=== PATIENT | male | born 1970 | race Caucasian/White ===

== ENCOUNTER 2017-01-23 14:33 | Emergency (ER) | payer OTHER ==
[2017-01-23 14:33] VITALS: BMI 90.0
[2017-01-23 15:13] VITALS: BP 133/88; PULSE 86; RESP 18; TEMP 97.6; O2SAT 98
[2017-01-24] MEDS ORDERED: Methylene Blue 10 mg/mL(10ml) IV ONE (08:53)
== END 2017-01-23 15:08 | disposition left against medical advice (07) ==
LOC: C.ER 14:33
DX: R19.7 Diarrhea, unspecified (principal); Z02.9 Encounter for administrative examinations, unspecified

== ENCOUNTER 2017-01-24 07:47 | Emergency (ER) | payer OTHER ==
[2017-01-24 07:55] VITALS: BMI 43.0
[2017-01-24 08:08] VITALS: RESP 19
[2017-01-24] MEDS ORDERED: Iohexol 240 (50 ml) PO STA (08:44)
[2017-01-24] MEDS ORDERED: Iohexol 240 (50 ml) ONE (09:29)
[2017-01-24 09:31] LABS: BASO % 0.1 % (0.0-2.0); EOS # 0.1 K/uL (0.0-0.7); EOS % 0.7 % (0.0-4.0); HEMATOCRIT 38.4 % (35.0-51.0); LYMPH # 1.6 K/uL (1.0-4.3); LYMPH % 15.1 % (20.0-40.0); MEAN CELL VOLUME 89.8 fL (80.0-94.0); MEAN CORPUSCULAR HEMOGLOBIN 30.3 pg (27.0-31.0); MEAN CORPUSCULAR HGB CONC 33.7 g/dL (33.0-37.0); MEAN PLATELET VOLUME 8.5 fL (7.2-11.7); MONO # 1.1 K/uL (0.0-0.8); MONO % 10.1 % (0.0-10.0); NRBC % 0.4 % (0.0-2.0); RED CELL DISTRIBUTION WIDTH 15.1 % (11.5-14.5); WHITE BLOOD COUNT 10.4 K/uL (4.8-10.8)
[2017-01-24 09:35] LABS: URINE BILIRUBIN NEGATIVE (NEGATIVE); URINE BLOOD 1+ (NEGATIVE); URINE COLOR Yellow (YELLOW); URINE GLUCOSE (UA) NORMAL (Normal); URINE KETONE NEGATIVE (NEGATIVE); URINE LEUKOCYTE ESTERASE NEG Leu/uL (Negative); URINE PROTEIN NEGATIVE (NEGATIVE); URINE UROBILINOGEN NORMAL mg/dL (0.2-1.0)
[2017-01-24 09:36] LABS: WBC URINE < 1 /hpf (0-5)
[2017-01-24 09:43] LABS: ALB/GLOB RATIO 0.9 (1.0-2.1); ALKALINE PHOSPHATASE 56 U/L (38-126); ALT/SGPT 36 U/L (21-72); AST/SGOT 22 U/L (17-59); BILIRUBIN,TOTAL 0.4 mg/dL (0.2-1.3); BLOOD UREA NITROGEN 16 mg/dL (9-20); CALCIUM 8.9 mg/dl (8.6-10.4); CARBON DIOXIDE 24 mmol/L (22-30); CHLORIDE 102 mmol/L (98-107); GFR AFRICAN-AMERICAN > 60; GLUCOSE,RANDOM 100 mg/dL (75-110); POTASSIUM 3.7 mmol/L (3.6-5.2); SODIUM 133 mmol/L (132-148)
[2017-01-24 09:49] LABS: RBC URINE 1 /hpf (0-3)
--- NOTE | 2017-01-24 10:05 | C.PDOC ---
History Of Present Illness 46 y/o male with PMHx of DM, CHF, DVT, COPD, Asthma and Kidney stones presents to ED with complaints of abdominal pain for 1 week with associated dark stool and diarrhea. Pt notes that the symptoms have improved. Patient was evaluated at clinic yesterday and advised to come to ED for further evaluation. Patient admits to taking pepto bismol, notes dark stool prior to it. Patient denies back pain, nausea, vomiting, dysuria, hematuria, blood in stool or any other complaints at this time. Time Seen by Provider: 01/24/17 07:59 Chief Complaint (Nursing): GI Problem History Per: Patient History/Exam Limitations: no limitations Onset/Duration Of Symptoms: Days Current Symptoms Are (Timing): Still Present Past Medical History Reviewed: Historical Data, Nursing Documentation, Vital Signs Vital Signs: Last Vital Signs Temp 98.7 F 01/24/17 12:45 Pulse 82 01/24/17 12:45 Resp 19 01/24/17 12:45 BP 154/82 H 01/24/17 12:45 Pulse Ox 97 01/24/17 13:28 - Medical History PMH: Asthma, Benign Prostatic Hyperplasia, CHF, COPD, Depression, Diverticulitis , HTN, Hypercholesterolemia, Hyperlipidemia, Hypothyroidism, Kidney Stones ( KIDNEY STENT 2007), Paranoia Surgical History: No Surg Hx - [facility] Procedures CLOSED ENDOSCOPIC BIOPSY OF LARGE INTESTINE (11/18/12) DX ULTRASOUND-HEAD/NECK (08/20/12) ENDOSC POLYPECTOMY OF LG INTEST (11/18/12) INJECT/INFUSE NEC (09/15/13) NEBULIZER THERAPY (10/23/13) PERCUTAN NEEDLE BX OF THYROID GLAND (08/20/12) PHYSICAL THERAPY NEC (11/24/14) Family History: States: Diabetes, Hypertension - Social History Hx Tobacco Use: No Hx Alcohol Use: No Hx Substance Use: No - Immunization History Hx Tetanus Toxoid Vaccination: No Hx Influenza Vaccination: No Hx Pneumococcal Vaccination: No Review Of Systems Constitutional: Negative for: Fever, Chills Gastrointestinal: Positive for: Abdominal Pain, Diarrhea, Melena. Negative for : Nausea, Vomiting, Hematochezia Skin: Negative for: Rash Physical Exam - Physical Exam Appears: Non-toxic, No Acute Distress Skin: Normal Color, Warm, Dry, No Rash Head: Atraumatic, Normacephalic Eye(s): bilateral: Normal Inspection, EOMI Nose: Normal Oral Mucosa: Moist Neck: Normal ROM, Supple Chest: Symmetrical Cardiovascular: Rhythm Regular Respiratory: Normal Breath Sounds, No Accessory Muscle Use, No Rales, No Rhonchi , No Wheezing Gastrointestinal/Abdominal: Soft, Tenderness (LLQ, obese), No Guarding, No Rebound Back: No CVA Tenderness, No Vertebral Tenderness Neurological/Psych: Oriented x3 ED Course And Treatment - Laboratory Results Result Diagrams: 01/24/17 09:28 01/24/17 09:28 O2 Sat by Pulse Oximetry: 97 (RA) Pulse Ox Interpretation: Normal - CT Scan/US CT A/P Other Rad Studies (CT/US): Interpreted By Me, Read By Radiologist, Radiology Report Reviewed CT/US Interpretation: PROCEDURE: CT Abdomen and Pelvis with contrast. HISTORY : pain. COMPARISON: None. TECHNIQUE: Contrast dose: 100 mL Visipaque 320. Radiation dose: Total exam DLP = 1368.39 mGy-cm. This CT exam was performed using one or more of the following dose reduction techniques: Automated exposure control, adjustment of the mA and/or kV according to patient size, and/ or use of iterative reconstruction technique. FINDINGS: LOWER THORAX: Unremarkable. LIVER: UnremarkableNormal size. Multiple masses of varying size suspicious for metastatic disease. Cannot rule out primary hepatic cellular neoplasm as well. The largest such mass is seen in the inferior right hepatic lobe and measures roughly 6.2 cm in greatest dimension. There is no biliary dilatation. . GALLBLADDER AND BILE DUCTS: Unremarkable. PANCREAS: Unremarkable. No gross lesion or ductal dilatation. SPLEEN: Unremarkable. ADRENALS: Unremarkable. No mass. KIDNEYS AND URETERS: Unremarkable. No hydronephrosis. No solid mass. VASCULATURE: Unremarkable. No aortic aneurysm. BOWEL: There is man colonic diverticulosis, most pronounced in the sigmoid colon. There is no evidence of diverticulitis. There is no bowel obstruction. APPENDIX: Normal appendix. PERITONEUM: Unremarkable. No free fluid. No free air. LYMPH NODES: Unremarkable. No enlarged lymph nodes. BLADDER: Unremarkable. REPRODUCTIVE: Normal prostate. BONES: No acute fracture. OTHER FINDINGS: None. IMPRESSION: Multiple hepatic masses raising suspicion of metastatic disease though multifocal hepatocellular neoplasm must also be considered. Progress Note: Ct scan abdomen, Toradol, Pepcid. Stool evaluated, soft brown stool. No blood or melena. On re-evlauation, patient is resting comfortably, abdomen remains soft, and patient is tolerating PO. Discussed with pt CT findings. Pt notes he is aware of the lesions in the liver and has been evaluated by GI with additional testing done. I stressed the importance of follow up and that cancer can not be ruled out. pt was given results of the labs and CT and instructed strict follow up with the heme/onc/GI. Pt verbalizes understanding. Instructed to follow up wit PMD in 1-2 days. CAse discussed and results evlauated by Dr Mei, agreed upon plan and treatment. Disposition - Disposition Referrals: Merritt Johnson MD [Staff Provider] - [facility] [Outside] Disposition: HOME/ ROUTINE Disposition Time: 12:31 Condition: STABLE Additional Instructions: Follow up with the clinic in 1-3 days without fail for further evaluation. Take medications as prescribed. Return to the emergency department at any time if symptoms persist or worsen. Instructions: Acute Abdominal Pain (ED) Forms: [employer] (Greenlandic) - Clinical Impression Clinical Impression: Abdominal pain, Liver masses - PA / NOVELTIES SALES REPRESENTATIVE / Resident Statement MD/DO has reviewed & agrees with the documentation as recorded. - Scribe Statement The provider has reviewed the documentation as recorded by the Masoudiblevy Tirado All medical record entries made by the Nila were at my direction and personally dictated by me. I have reviewed the chart and agree that the record accurately reflects my personal performance of the history, physical exam, medical decision making, and the department course for this patient. I have also personally directed, reviewed, and agree with the discharge instructions and disposition.
[2017-01-24] MEDS ORDERED: Iodixanol 320 MG/ML 100 ML BOTTLE IV ONE (10:57)
--- NOTE | 2017-01-24 12:06 | CT ---
PROCEDURE: CT Abdomen and Pelvis with contrast HISTORY: pain COMPARISON: None. TECHNIQUE: Contrast dose: 100 mL Visipaque 320 Radiation dose: Total exam DLP = 1368.39 mGy-cm. This CT exam was performed using one or more of the following dose reduction techniques: Automated exposure control, adjustment of the mA and/or kV according to patient size, and/or use of iterative reconstruction technique. FINDINGS: LOWER THORAX: Unremarkable. LIVER: UnremarkableNormal size. Multiple masses of varying size suspicious for metastatic disease. Cannot rule out primary hepatic cellular neoplasm as well. The largest such mass is seen in the inferior right hepatic lobe and measures roughly 6.2 cm in greatest dimension. There is no biliary dilatation. . GALLBLADDER AND BILE DUCTS: Unremarkable. PANCREAS: Unremarkable. No gross lesion or ductal dilatation. SPLEEN: Unremarkable. ADRENALS: Unremarkable. No mass. KIDNEYS AND URETERS: Unremarkable. No hydronephrosis. No solid mass. VASCULATURE: Unremarkable. No aortic aneurysm. BOWEL: There is man colonic diverticulosis, most pronounced in the sigmoid colon. There is no evidence of diverticulitis. There is no bowel obstruction. APPENDIX: Normal appendix. PERITONEUM: Unremarkable. No free fluid. No free air. LYMPH NODES: Unremarkable. No enlarged lymph nodes. BLADDER: Unremarkable. REPRODUCTIVE: Normal prostate BONES: No acute fracture. OTHER FINDINGS: None. IMPRESSION: Multiple hepatic masses raising suspicion of metastatic disease though multifocal hepatocellular neoplasm must also be considered.
[2017-01-24 12:54] VITALS: BP 154/82; PULSE 82; TEMP 98.7
[2017-01-24 13:28] VITALS: O2SAT 97
== END 2017-01-24 12:54 | disposition home or self-care (01) ==
LOC: C.ER 07:47
DX: R10.32 Left lower quadrant pain (principal); R16.0 Hepatomegaly, not elsewhere classified
CPT/HCPCS: 74177; 80053; 81001; 83690; 85025; 96374; 96375; 99284; G0328; J1885; Q9966; Q9967

== ENCOUNTER 2017-02-19 07:42 | Emergency (ER) | payer OTHER ==
[2017-02-19 07:47] VITALS: BMI 43.4
[2017-02-19 07:50] VITALS: PULSE 86; RESP 18
[2017-02-19 08:29] LABS: BASO # 0.1 K/uL (0.0-0.2); BASO % 0.6 % (0.0-2.0); EOS # 0.1 K/uL (0.0-0.7); EOS % 0.4 % (0.0-4.0); HEMATOCRIT 40.7 % (35.0-51.0); LYMPH % 14.6 % (20.0-40.0); MEAN CORPUSCULAR HEMOGLOBIN 29.6 pg (27.0-31.0); MEAN CORPUSCULAR HGB CONC 33.6 g/dL (33.0-37.0); MEAN PLATELET VOLUME 8.3 fL (7.2-11.7); MONO # 1.2 K/uL (0.0-0.8); MONO % 8.4 % (0.0-10.0); NRBC % 0.1 % (0.0-2.0); RED CELL DISTRIBUTION WIDTH 15.1 % (11.5-14.5); WHITE BLOOD COUNT 13.9 K/uL (4.8-10.8)
[2017-02-19 08:45] LABS: ALB/GLOB RATIO 1.1 (1.0-2.1); ALKALINE PHOSPHATASE 59 U/L (38-126); ALT/SGPT 32 U/L (21-72); AST/SGOT 22 U/L (17-59); BILIRUBIN,TOTAL 0.5 mg/dL (0.2-1.3); BLOOD UREA NITROGEN 25 mg/dL (9-20); CALCIUM 9.4 mg/dl (8.6-10.4); CARBON DIOXIDE 28 mmol/L (22-30); CHLORIDE 94 mmol/L (98-107); GFR AFRICAN-AMERICAN > 60; GLUCOSE,RANDOM 171 mg/dL (75-110); POTASSIUM 3.8 mmol/L (3.6-5.2); SODIUM 131 mmol/L (132-148); TOTAL PROTEIN 8.1 g/dL (6.3-8.3)
[2017-02-19 08:50] LABS: URINE BILIRUBIN NEGATIVE (NEGATIVE); URINE COLOR Straw (YELLOW); URINE GLUCOSE (UA) NORMAL (Normal); URINE KETONE NEGATIVE (NEGATIVE); URINE LEUKOCYTE ESTERASE NEG Leu/uL (Negative); URINE PROTEIN NEGATIVE (NEGATIVE); URINE UROBILINOGEN NORMAL mg/dL (0.2-1.0)
[2017-02-19 08:54] LABS: RBC URINE 1 /hpf (0-3)
[2017-02-19 08:55] LABS: URINE BLOOD TRACE (NEGATIVE)
--- NOTE | 2017-02-19 09:27 | C.PDOC ---
Time Seen by Provider: 02/19/17 07:56 Chief Complaint (Nursing): Abdominal Pain History Per: Patient Onset/Duration Of Symptoms: Days (chronic), Intermittent Episodes Current Symptoms Are (Timing): Still Present Severity: Moderate Location Of Pain/Discomfort: RLQ, LLQ, Suprapubic Quality Of Discomfort: Cramping Associated Symptoms: Diarrhea Exacerbating Factors: Food Alleviating Factors: None Recent travel outside of the [place]: No Additional History Per: Prior Records Past Medical History Reviewed: Historical Data, Nursing Documentation, Vital Signs Vital Signs: Last Vital Signs Temp Pulse 86 02/19/17 07:48 Resp 18 02/19/17 07:48 BP 135/89 02/19/17 07:48 Pulse Ox 95 02/19/17 07:48 - Medical History PMH: Asthma, Benign Prostatic Hyperplasia, CHF, COPD, Depression, Diverticulitis , HTN, Hypercholesterolemia, Hyperlipidemia, Hypothyroidism, Kidney Stones ( KIDNEY STENT 2007), Paranoia Surgical History: No Surg Hx - [facility] Procedures CLOSED ENDOSCOPIC BIOPSY OF LARGE INTESTINE (11/18/12) DX ULTRASOUND-HEAD/NECK (08/20/12) ENDOSC POLYPECTOMY OF LG INTEST (11/18/12) INJECT/INFUSE NEC (09/15/13) NEBULIZER THERAPY (10/23/13) PERCUTAN NEEDLE BX OF THYROID GLAND (08/20/12) PHYSICAL THERAPY NEC (11/24/14) Family History: States: Diabetes, Hypertension - Social History Hx Tobacco Use: No Hx Alcohol Use: No Hx Substance Use: No - Immunization History Hx Tetanus Toxoid Vaccination: No Hx Influenza Vaccination: No Hx Pneumococcal Vaccination: No Review Of Systems Except As Marked, All Systems Reviewed And Found Negative. Constitutional: Negative for: Fever Cardiovascular: Negative for: Chest Pain Respiratory: Negative for: Hemoptysis Gastrointestinal: Negative for: Vomiting, Melena, Hematochezia, Hematemesis Genitourinary: Negative for: Dysuria Musculoskeletal: Negative for: Neck Pain Skin: Negative for: Rash Neurological: Negative for: Weakness, Numbness Physical Exam - Physical Exam Appears: Non-toxic, No Acute Distress Skin: Warm, Dry Head: Atraumatic, Normacephalic Eye(s): bilateral: PERRL, EOMI Oral Mucosa: Moist Neck: Normal ROM, Supple Cardiovascular: Rhythm Regular Respiratory: Normal Breath Sounds, No Accessory Muscle Use Gastrointestinal/Abdominal: Soft, No Tenderness Back: No CVA Tenderness Extremity: Normal ROM, No Pedal Edema Neurological/Psych: Oriented x3, Normal Motor, Normal Sensation ED Course And Treatment - Laboratory Results Result Diagrams: 02/19/17 08:24 02/19/17 08:24 O2 Sat by Pulse Oximetry: 95 Pulse Ox Interpretation: Normal Disposition Counseled Patient/Family Regarding: Studies Performed, Diagnosis, Need For Followup, Rx Given - Disposition Referrals: [facility] [Outside] Merritt Johnson MD [Staff Provider] - Disposition: HOME/ ROUTINE Disposition Time: 09:27 Condition: STABLE Additional Instructions: Follow up with a Construction Sales Representative within 1-2 weeks for further evaluation and treatment. Return to the ER if you develop fever, vomiting, bloody stools, worsening of symptoms or if you have any other concerns. Prescriptions: Dicyclomine [Bentyl] 20 mg PO QID PRN #30 tab PRN Reason: Irritable Bowel Symptoms Instructions: Chronic Diarrhea (ED) - Clinical Impression Clinical Impression: Chronic diarrhea
[2017-02-19 09:44] VITALS: BP 121/84; O2SAT 98
== END 2017-02-19 09:44 | disposition home or self-care (01) ==
LOC: C.ER 07:42
DX: K52.9 Noninfective gastroenteritis and colitis, unspecified (principal); I10 Essential (primary) hypertension; E78.00 Pure hypercholesterolemia, unspecified; E03.9 Hypothyroidism, unspecified; I50.9 Heart failure, unspecified; J44.9 Chronic obstructive pulmonary disease, unspecified; E78.5 Hyperlipidemia, unspecified

== ENCOUNTER 2017-04-02 07:38 | Inpatient (IN) | payer OTHER ==
[2017-04-02 07:38] VITALS: BMI 44.4
[2017-04-02 08:39] LABS: BASO % 0.4 % (0.0-2.0); EOS % 0.3 % (0.0-4.0); HEMOGLOBIN 13.3 g/dL (12.0-18.0); LYMPH # 0.8 K/uL (1.0-4.3); LYMPH % 9.4 % (20.0-40.0); MEAN CORPUSCULAR HEMOGLOBIN 30.5 pg (27.0-31.0); MEAN CORPUSCULAR HGB CONC 34.3 g/dL (33.0-37.0); MEAN PLATELET VOLUME 8.6 fL (7.2-11.7); MONO # 0.9 K/uL (0.0-0.8); MONO % 9.4 % (0.0-10.0); NEUT # 7.3 K/uL (1.8-7.0); NEUT % 80.5 % (50.0-75.0); NRBC % 0.1 % (0.0-2.0); PLATELET COUNT 195 K/uL (130-400); RBC 4.36 Mil/uL (4.40-5.90); RED CELL DISTRIBUTION WIDTH 15.5 % (11.5-14.5); WHITE BLOOD COUNT 9.1 K/uL (4.8-10.8)
--- NOTE | 2017-04-02 08:39 | C.PDOC ---
History Of Present Illness 47-year-old male, PMHx includes Asthma, Benign Prostatic Hyperplasia, liver lesions, CHF, COPD, Depression, Diverticulitis, Hypertension, Hypercholesterolemia, Hyperlipidemia, Hypothyroidism, and Kidney Stones, presents to the emergency department with complaints of lower abdominal pain that is associated with multiple episodes of non-bloody/watery diarrhea since last night. Patient also reports that his asthma has been bothering him for the past week, associated with shortness of breath and cough. He denies nausea/ vomiting, fevers, chills, or chest pain. Time Seen by Provider: 04/02/17 07:57 Chief Complaint (Nursing): GI Problem History Per: Patient History/Exam Limitations: no limitations Onset/Duration Of Symptoms: Days Current Symptoms Are (Timing): Still Present Severity: Moderate Past Medical History Reviewed: Historical Data, Nursing Documentation, Vital Signs Vital Signs: Last Vital Signs Temp 83 F L 04/02/17 10:42 Pulse 83 04/02/17 10:42 Resp 20 04/02/17 10:42 BP 107/70 04/02/17 10:42 Pulse Ox 95 04/02/17 10:50 - Medical History PMH: Asthma, Benign Prostatic Hyperplasia, CHF, COPD, Depression, Diverticulitis , HTN, Hypercholesterolemia, Hyperlipidemia, Hypothyroidism, Kidney Stones ( KIDNEY STENT 2007), Paranoia - [facility] Procedures CLOSED ENDOSCOPIC BIOPSY OF LARGE INTESTINE (11/18/12) DX ULTRASOUND-HEAD/NECK (08/20/12) ENDOSC POLYPECTOMY OF LG INTEST (11/18/12) INJECT/INFUSE NEC (09/15/13) NEBULIZER THERAPY (10/23/13) PERCUTAN NEEDLE BX OF THYROID GLAND (08/20/12) PHYSICAL THERAPY NEC (11/24/14) Family History: States: Diabetes, Hypertension - Social History Hx Tobacco Use: No Hx Alcohol Use: No Hx Substance Use: No - Immunization History Hx Tetanus Toxoid Vaccination: No Hx Influenza Vaccination: No Hx Pneumococcal Vaccination: No Review Of Systems Constitutional: Negative for: Fever Cardiovascular: Negative for: Chest Pain, Palpitations Respiratory: Positive for: Cough, Shortness of Breath Gastrointestinal: Positive for: Abdominal Pain, Diarrhea. Negative for: Nausea , Vomiting, Melena, Hematochezia Musculoskeletal: Negative for: Back Pain Neurological: Negative for: Weakness, Numbness, Headache, Dizziness Physical Exam - Physical Exam Appears: Non-toxic, No Acute Distress, Other (Obese) Skin: Warm, Dry, No Rash, No Jaundice Head: Atraumatic, Normacephalic Eye(s): bilateral: Normal Inspection, PERRL Nose: Normal Oral Mucosa: Moist Lips: Normal Appearing Neck: Normal ROM Cardiovascular: Rhythm Regular, No Murmur Respiratory: Normal Breath Sounds, No Accessory Muscle Use Gastrointestinal/Abdominal: Soft, No Tenderness, No Distention, No Guarding, No Rebound Extremity: Pedal Edema (Mild.), No Calf Tenderness, No Deformity Neurological/Psych: Oriented x3, Normal Speech ED Course And Treatment - Laboratory Results Result Diagrams: 04/02/17 08:32 04/02/17 08:32 O2 Sat by Pulse Oximetry: 95 (RA) Medical Decision Making Medical Decision Making: Plan: * BNP, CMP * CBC, PTT, PT * Chest X-Ray * UA * Reassess and Disposition Disposition Discussed With DrJuan: Wei Cunningham Doctor Will See Patient In The: Hospital - Disposition Disposition: HOSPITALIZED Disposition Time: 10:51 Condition: STABLE Forms: [employer] (Slovenian) - Clinical Impression Clinical Impression: Infiltrate noted on imaging study, Mild dehydration - Scribe Statement The provider has reviewed the documentation as recorded by the Scribe (Bola Rodrigues) All medical record entries made by the Scribe were at my direction and personally dictated by me. I have reviewed the chart and agree that the record accurately reflects my personal performance of the history, physical exam, medical decision making, and the department course for this patient. I have also personally directed, reviewed, and agree with the discharge instructions and disposition.
[2017-04-02 08:51] LABS: INR 1.2
[2017-04-02 08:55] LABS: ALB/GLOB RATIO 1.1 (1.0-2.1); ALT/SGPT 25 U/L (21-72); AST/SGOT 23 U/L (17-59); BLOOD UREA NITROGEN 23 mg/dL (9-20); CALCIUM 9.1 mg/dl (8.6-10.4); GFR AFRICAN-AMERICAN > 60; GFR NON-AFRICAN AMERICAN > 60
[2017-04-02 09:02] LABS: B-TYPE NATRIURETIC PEPTIDE 212 pg/mL (0-450)
[2017-04-02 09:06] LABS: URINE BILIRUBIN NEGATIVE (NEGATIVE); URINE BLOOD 1+ (NEGATIVE); URINE CLARITY Clear (Clear); URINE COLOR Straw (YELLOW); URINE GLUCOSE (UA) NORMAL (Normal); URINE LEUKOCYTE ESTERASE NEG Leu/uL (Negative); URINE NITRATE NEGATIVE (NEGATIVE); URINE PROTEIN NEGATIVE (NEGATIVE); URINE UROBILINOGEN NORMAL mg/dL (0.2-1.0)
[2017-04-02 09:13] LABS: BANDS 3 % (0-2); LYMPHOCYTE 7 % (20-40); MONOCYTE 11 % (0-10); NEUTROPHIL 77 % (50-75); REACTIVE LYMPHOCYTES 2 % (0-0); TOTAL CELLS COUNTED 100
[2017-04-02 09:14] LABS: PLATELET ESTIMATE NORMAL (NORMAL)
--- NOTE | 2017-04-02 09:16 | RAD ---
Chest x-ray two views History: Shortness of breath. Comparison: 04/25/2015 Findings: Mild venous congestion. Mild patchy increased markings at the left lung base. Tortuous aorta. Mild cardiomegaly. Degenerative changes in the spine and shoulders. Question deformities of several right lateral ribs. Impression: Mild venous congestion. Mild patchy increased markings at the left lung base. Tortuous aorta. Mild cardiomegaly
[2017-04-02] MEDS ORDERED: cefTRIAXone IV 1 gm in Dextros 50 ML IVPB ONE ×2 (09:54→11:03)
[2017-04-02] MEDS ORDERED: Azithromycin 500 MG in Sodium Chloride 0.9% 250 ML IVPB STA (09:55)
--- NOTE | 2017-04-02 12:48 | CP.PCM.HP ---
<Uyen RobinJuan - Last Filed: 04/02/17 15:25> History of Present Illness - History of Present Illness History of Present Illness: HPI: Patient is a 47 year old male with past medical history of asthma, COPD, CHF, HTN, HLD, DM, hypothyroidism, diverticulosis, who presents to the ED with complaints of watery diarrhea and lower abdominal pain that started the previous night. Patient reports having approximately 6 episodes of diarrhea over night, and continues to have diarrhea in the ED. He denies blood in stool. Patient admits to lower abdominal pain that is diffuse and described as feeling inflamed and bloated. Patient reports having similar episodes in the past, last episode was 2 months ago. Patient also complains of shortness of breath and cough associated with his history of asthma. Patient denies chest pain, nausea, vomiting, fevers, headache, recent sick contacts, recent travel. PMD: Dr. Woods PMHx: asthma, COPD, CHF, HTN, HLD, DM, hypothyroidism, diverticulosis. depression, schizophrenia/paranoia, kidney stones, liver lesions, glaucoma (b/l) , blind in left eye SurgHx: eye surgeries (3 years prior), kidney stent (2007) FamHx: Father- [place], DM SocHx: denies tobacco, alcohol, and drug use; lives in [place] alone; unemployed, disability Allergies: dilaudid and morphine (palpitations and "head feels full of air") Medications: Carvedilol 25mg BID, Losartan 100mg daily, pravastatin 40mg daily, furosemide 40mg daily, levothyroxine 25mg daily, spironolactone 25mg daily, symbicort 250 daily, ventolin prn, metformin 500mg daily, vitamin D3 daily, fish oil daily Present on Admission - Present on Admission Any Indicators Present on Admission: No Review of Systems - Constitutional Constitutional: Increased Appetite, Weakness. absent: Fever, Headache, Night Sweats - EENT Eyes: Other Visual Disturbances (blind in left eye, glaucoma in right with decreased vision) Ears: Dizziness Nose/Mouth/Throat: Hoarsness. absent: Sore Throat - Cardiovascular Cardiovascular: Dyspnea, Palpitations. absent: Chest Pain - Respiratory Respiratory: Cough, Dyspnea. absent: Excessive Mucous Production - Gastrointestinal Gastrointestinal: Abdominal Pain, Bloating, Diarrhea. absent: Constipation, Nausea, Vomiting - Genitourinary Genitourinary: absent: Dysuria, Hematuria, Pyuria - Neurological Neurological: Dizziness. absent: Headaches - Psychiatric Psychiatric: Depression - Endocrine Endocrine: Palpitations Past Patient History - Infectious Disease Hx of Infectious Diseases: None - Past Medical History & Family History Past Medical History?: Yes - Past Social History Smoking Status: Never Smoked - CARDIAC Hx Congestive Heart Failure: Yes Hx Hypercholesterolemia: Yes Hx Hypertension: Yes - PULMONARY Hx Asthma: Yes Hx Chronic Obstructive Pulmonary Disease (COPD): Yes - NEUROLOGICAL Hx Seizures: No - HEENT Hx HEENT Problems: Yes Hx Blind: Yes (left eye) Hx Glaucoma: Yes Other/Comment: lt. eye blind - RENAL Hx Kidney Stones: Yes (KIDNEY STENT 2007) - ENDOCRINE/METABOLIC Hx Hypothyroidism: Yes - HEMATOLOGICAL/ONCOLOGICAL Hx Human Immunodeficiency Virus (HIV): No - INTEGUMENTARY Hx Dermatological Problems: No - MUSCULOSKELETAL/RHEUMATOLOGICAL Hx Musculoskeletal Disorders: No Hx Falls: No - GASTROINTESTINAL Hx Diverticulitis: Yes - PSYCHIATRIC Hx Depression: Yes Hx Paranoia: Yes Hx Substance Use: No - SURGICAL HISTORY Hx Surgeries: Yes Other/Comment: KIDNEY STENT, LEFT EYE SURGERY X3 - ANESTHESIA Hx Anesthesia: Yes Hx Anesthesia Reactions: No Hx Malignant Hyperthermia: No (UNKNOWN) Meds Allergies/Adverse Reactions: Allergies Allergy/AdvReac Type Severity Reaction Status Date / Time hydromorphone HCl Allergy SHORTNESS Verified 02/19/17 07:47 [From Dilaudid] OF BREATH morphine Allergy HEADACHE Verified 02/19/17 07:47 Physical Exam - Constitutional Appears: No Acute Distress - Head Exam Head Exam: ATRAUMATIC, NORMOCEPHALIC - Eye Exam Eye Exam: EOMI (Right eye). absent: Normal appearance - ENT Exam ENT Exam: Mucous Membranes Moist - Respiratory Exam Respiratory Exam: Clear to Auscultation Bilateral, NORMAL BREATHING PATTERN. absent: Rales, Rhonchi, Wheezes, Respiratory Distress - Cardiovascular Exam Cardiovascular Exam: REGULAR RHYTHM, +S1, +S2 - GI/Abdominal Exam GI & Abdominal Exam: Normal Bowel Sounds, Soft, Tenderness (mild with deep palpation- diffuse) - Extremities Exam Extremities exam: Positive for: pedal edema, pedal pulses present. Negative for : tenderness - Neurological Exam Neurological exam: Alert, Oriented x3 - Psychiatric Exam Psychiatric exam: Anxious - Skin Skin Exam: Dry, Intact, Warm Results - Vital Signs Recent Vital Signs: Last Vital Signs Temp 98.3 F 04/02/17 10:42 Pulse 83 04/02/17 10:42 Resp 20 04/02/17 10:42 BP 107/70 04/02/17 10:42 Pulse Ox 95 04/02/17 10:52 - Labs Result Diagrams: 04/02/17 08:32 04/02/17 08:32 Labs: Laboratory Results - last 24 hr 04/02/17 04/02/17 04/02/17 08:32 08:32 08:32 WBC 9.1 RBC 4.36 L Hgb 13.3 Hct 38.8 MCV 89.0 MCH 30.5 MCHC 34.3 RDW 15.5 H Plt Count 195 MPV 8.6 Neut % (Auto) 80.5 H Lymph % (Auto) 9.4 L [place] % (Auto) 9.4 Eos % (Auto) 0.3 Baso % (Auto) 0.4 Neut # (Auto) 7.3 H Lymph # (Auto) 0.8 L [place] # (Auto) 0.9 H Eos # (Auto) 0.0 Baso # (Auto) 0.0 Neutrophils % (Manual) 77 H Band Neutrophils % 3 H Lymphocytes % (Manual) 7 L Reactive Lymphs % 2 H Monocytes % (Manual) 11 H Platelet Estimate Normal RBC Morphology Normal PT 13.0 H INR 1.2 APTT 27 Sodium 133 Potassium 4.1 Chloride 99 Carbon Dioxide 20 L Anion Gap 18 BUN 23 H Creatinine 0.9 Est GFR ( Amer) > 60 Est GFR (Non-Af Amer) > 60 Random Glucose 142 H Calcium 9.1 Total Bilirubin 0.7 AST 23 ALT 25 Alkaline Phosphatase 48 NT-Pro-B Natriuret Pep 212 Total Protein 7.6 Albumin 4.0 Globulin 3.5 Albumin/Globulin Ratio 1.1 Urine Color Urine Clarity Urine pH Ur Specific [place] Urine Protein Urine Glucose (UA) Urine Ketones Urine Blood Urine Nitrate Urine Bilirubin Urine Urobilinogen Ur Leukocyte Esterase Urine WBC (Auto) Urine RBC (Auto) Influenza Typ A,B (EIA) 04/02/17 04/02/17 08:36 09:53 WBC RBC Hgb Hct MCV MCH MCHC RDW Plt Count MPV Neut % (Auto) Lymph % (Auto) [place] % (Auto) Eos % (Auto) Baso % (Auto) Neut # (Auto) Lymph # (Auto) [place] # (Auto) Eos # (Auto) Baso # (Auto) Neutrophils % (Manual) Band Neutrophils % Lymphocytes % (Manual) Reactive Lymphs % Monocytes % (Manual) Platelet Estimate RBC Morphology PT INR APTT Sodium Potassium Chloride Carbon Dioxide Anion Gap BUN Creatinine Est GFR ( Amer) Est GFR (Non-Af Amer) Random Glucose Calcium Total Bilirubin AST ALT Alkaline Phosphatase NT-Pro-B Natriuret Pep Total Protein Albumin Globulin Albumin/Globulin Ratio Urine Color Straw Urine Clarity Clear Urine pH 5.0 Ur Specific [place] 1.009 Urine Protein Negative Urine Glucose (UA) Normal Urine Ketones Negative Urine Blood 1+ H Urine Nitrate Negative Urine Bilirubin Negative Urine Urobilinogen Normal Ur Leukocyte Esterase Neg Urine WBC (Auto) < 1 Urine RBC (Auto) 2 Influenza Typ A,B (EIA) Negative for flu a/b Assessment & Plan (1) Abdominal pain Status: Acute (2) Diarrhea Status: Acute (3) Asthma Status: Acute (4) HTN (hypertension) Status: Acute (5) Hyperlipemia Status: Acute (6) Diabetes mellitus Status: Acute (7) Prophylactic measure Status: Acute - Assessment and Plan (Free Text) Plan: Abdominal pain/Diarrhea Assessment and Plan: * R/O diverticulitis vs. colitis vs. immune etiology * Abdomen/pelvis CT: f/u results * ESR: f/u results * CRP: f/u results * KORTNEY: f/u results * AFP: f/u results * GGT: f/u results * Hepatitis panel: f/u results * HIV: f/u results * C.diff: f/u results * Stool occult: f/u results * Stool leukocytes: f/u results * Stool ova and parasites: f/u results * Started Cipro 400mg IV Q12h, Flagyl 500mg IV Q8hr * IV fluids @40mls; f/u CXR in AM Asthma Assessment and Plan: * Continue home medications (Advair to replace Symbicort) * O2 via nasal cannula prn * CXR: mild venous congestion, mild patchy increased markings at left lung base , tortuous aorta, mild cardiomegaly. * Repeat CXR in AM: f/u results CHF Assessment and Plan: * Continue home medications * CXR: mild venous congestion, mild patchy increased markings at left lung base , tortuous aorta, mild cardiomegaly. * Repeat CXR in AM: f/u results * ECHO (08/2013) LV systolic function moderately impaired, EF 30-35%, abnormal LV diastolic dysfunction. HTN (hypertension) Assessment and Plan: * Continue home medications Hyperlipemia Assessment and Plan: * Continue home medications Diabetes Mellitus Assessment and Plan: * Home medications: Metformin 500mg PO daily * A1c: f/u results * ISS * Hypoglycemia protocol * Monitor blood glucose, accuchecks Prophylactic measure Assessment and Plan: * Heparin 5000 SC Q8h, SCDs * Protonix 40mg PO daily <Wei Cunningham H - Last Filed: 04/02/17 16:50> Results - Vital Signs Recent Vital Signs: Last Vital Signs Temp 98.3 F 04/02/17 16:32 Pulse 87 04/02/17 16:32 Resp 19 04/02/17 16:32 BP 122/80 04/02/17 16:32 Pulse Ox 98 04/02/17 16:32 - Labs Result Diagrams: 04/02/17 08:32 04/02/17 08:32 Labs: Laboratory Results - last 24 hr 04/02/17 04/02/17 04/02/17 08:32 08:32 08:32 WBC 9.1 RBC 4.36 L Hgb 13.3 Hct 38.8 MCV 89.0 MCH 30.5 MCHC 34.3 RDW 15.5 H Plt Count 195 MPV 8.6 Neut % (Auto) 80.5 H Lymph % (Auto) 9.4 L [place] % (Auto) 9.4 Eos % (Auto) 0.3 Baso % (Auto) 0.4 Neut # (Auto) 7.3 H Lymph # (Auto) 0.8 L [place] # (Auto) 0.9 H Eos # (Auto) 0.0 Baso # (Auto) 0.0 Neutrophils % (Manual) 77 H Band Neutrophils % 3 H Lymphocytes % (Manual) 7 L Reactive Lymphs % 2 H Monocytes % (Manual) 11 H Platelet Estimate Normal RBC Morphology Normal PT 13.0 H INR 1.2 APTT 27 Sodium 133 Potassium 4.1 Chloride 99 Carbon Dioxide 20 L Anion Gap 18 BUN 23 H Creatinine 0.9 Est GFR ( Amer) > 60 Est GFR (Non-Af Amer) > 60 POC Glucose (mg/dL) Random Glucose 142 H Hemoglobin A1c Calcium 9.1 Total Bilirubin 0.7 GGT AST 23 ALT 25 Alkaline Phosphatase 48 C-React Prot High Sens NT-Pro-B Natriuret Pep 212 Total Protein 7.6 Albumin 4.0 Globulin 3.5 Albumin/Globulin Ratio 1.1 Alpha Fetoprotein Urine Color Urine Clarity Urine pH Ur Specific [place] Urine Protein Urine Glucose (UA) Urine Ketones Urine Blood Urine Nitrate Urine Bilirubin Urine Urobilinogen Ur Leukocyte Esterase Urine WBC (Auto) Urine RBC (Auto) HIV 1&2 Antibody Screen Influenza Typ A,B (EIA) 04/02/17 04/02/17 04/02/17 08:36 09:53 14:47 WBC RBC Hgb Hct MCV MCH MCHC RDW Plt Count MPV Neut % (Auto) Lymph % (Auto) [place] % (Auto) Eos % (Auto) Baso % (Auto) Neut # (Auto) Lymph # (Auto) [place] # (Auto) Eos # (Auto) Baso # (Auto) Neutrophils % (Manual) Band Neutrophils % Lymphocytes % (Manual) Reactive Lymphs % Monocytes % (Manual) Platelet Estimate RBC Morphology PT INR APTT Sodium Potassium Chloride Carbon Dioxide Anion Gap BUN Creatinine Est GFR ( Amer) Est GFR (Non-Af Amer) POC Glucose (mg/dL) 103 Random Glucose Hemoglobin A1c Calcium Total Bilirubin GGT AST ALT Alkaline Phosphatase C-React Prot High Sens NT-Pro-B Natriuret Pep Total Protein Albumin Globulin Albumin/Globulin Ratio Alpha Fetoprotein Urine Color Straw Urine Clarity Clear Urine pH 5.0 Ur Specific [place] 1.009 Urine Protein Negative Urine Glucose (UA) Normal Urine Ketones Negative Urine Blood 1+ H Urine Nitrate Negative Urine Bilirubin Negative Urine Urobilinogen Normal Ur Leukocyte Esterase Neg Urine WBC (Auto) < 1 Urine RBC (Auto) 2 HIV 1&2 Antibody Screen Influenza Typ A,B (EIA) Negative for flu a/b 04/02/17 04/02/17 04/02/17 15:31 15:31 15:31 WBC RBC Hgb Hct MCV MCH MCHC RDW Plt Count MPV Neut % (Auto) Lymph % (Auto) [place] % (Auto) Eos % (Auto) Baso % (Auto) Neut # (Auto) Lymph # (Auto) [place] # (Auto) Eos # (Auto) Baso # (Auto) Neutrophils % (Manual) Band Neutrophils % Lymphocytes % (Manual) Reactive Lymphs % Monocytes % (Manual) Platelet Estimate RBC Morphology PT 13.5 H INR 1.2 APTT 27 Sodium Potassium Chloride Carbon Dioxide Anion Gap BUN Creatinine Est GFR ( Amer) Est GFR (Non-Af Amer) POC Glucose (mg/dL) Random Glucose Hemoglobin A1c Calcium Total Bilirubin GGT 48 AST ALT Alkaline Phosphatase C-React Prot High Sens > 15.00 H NT-Pro-B Natriuret Pep Total Protein Albumin Globulin Albumin/Globulin Ratio Alpha Fetoprotein Urine Color Urine Clarity Urine pH Ur Specific [place] Urine Protein Urine Glucose (UA) Urine Ketones Urine Blood Urine Nitrate Urine Bilirubin Urine Urobilinogen Ur Leukocyte Esterase Urine WBC (Auto) Urine RBC (Auto) HIV 1&2 Antibody Screen Influenza Typ A,B (EIA) 04/02/17 04/02/17 15:31 16:23 WBC RBC Hgb Hct MCV MCH MCHC RDW Plt Count MPV Neut % (Auto) Lymph % (Auto) [place] % (Auto) Eos % (Auto) Baso % (Auto) Neut # (Auto) Lymph # (Auto) [place] # (Auto) Eos # (Auto) Baso # (Auto) Neutrophils % (Manual) Band Neutrophils % Lymphocytes % (Manual) Reactive Lymphs % Monocytes % (Manual) Platelet Estimate RBC Morphology PT INR APTT Sodium Potassium Chloride Carbon Dioxide Anion Gap BUN Creatinine Est GFR ( Amer) Est GFR (Non-Af Amer) POC Glucose (mg/dL) Random Glucose Hemoglobin A1c 6.8 H Calcium Total Bilirubin GGT AST ALT Alkaline Phosphatase C-React Prot High Sens NT-Pro-B Natriuret Pep Total Protein Albumin Globulin Albumin/Globulin Ratio Alpha Fetoprotein 1.6 Urine Color Urine Clarity Urine pH Ur Specific [place] Urine Protein Urine Glucose (UA) Urine Ketones Urine Blood Urine Nitrate Urine Bilirubin Urine Urobilinogen Ur Leukocyte Esterase Urine WBC (Auto) Urine RBC (Auto) HIV 1&2 Antibody Screen Negative Influenza Typ A,B (EIA) Attending/Attestation - Attestation I have personally seen and examined this patient.: Yes I have fully participated in the care of the patient.: Yes I have reviewed all pertinent clinical information: Yes Notes (Text): 04/02/17 16:50 Medical attending: Patient was seen and examined by me as well, agrees the above note by the anesthesiology medical doctor. Mr Sanchez is a man with many complaints, very anxious with a history of bipolar and schizophrenia, and paranoia.. He has a history of asthma, COPD, history of CHF hypertension hypothyroidism who came in with chief complaint of watery stools as well as abdominal pain in his lower abdomen. From what and distended he's had episodes like this before in the past. We ordered a CT scan of the abdomen and pelvis with IV and by mouth contrast. We are later notified that the patient was giving the staff a hard time because he didn't want this imaging I came back down and explained to him that it would be important to give us an idea of what was going on inside he asked me a lot of questions she could have potential cancer or liver disease. But then he will allow a CT scan of the abdomen and pelvis I explained to him that if he continues to refuse imaging of his abdomen and pelvis that we would not be affected by this however it would greatly limit our ability to know what was going on. And we were therefore not be able to answer his many numerous questions that he was having Because of his ongoing diarrhea reported check for stool studies as well including ova and parasites, white blood cells, and for blood and for C. difficile. Furthermore because of this ongoing diarrhea, were to place him on a very slow intravenous fluids. I realize that there is a history of CHF. I did look at the chest x-ray dated looks like he has some minimal congestion. So we are going to give him slow intravenous fluids however when a check x-ray tomorrow just compared to today to see if we can continue the fluids or if we need to stop it given diuresis Thank you very much, Wei Cunningham
[2017-04-02] MEDS ORDERED: Iohexol 240 (50 ml) ONE (14:24)
[2017-04-02] MEDS ORDERED: Iohexol 240 (50 ml) PO ONE (14:29)
[2017-04-02] MEDS ORDERED: Sodium Chloride 0.9% 1,000 ML IV SCH (14:45)
[2017-04-02] MEDS ORDERED: Sodium Chloride 0.9% 1,000 ML ONE (15:11)
[2017-04-02] MEDS ORDERED: Ciprofloxacin 400mg/200ml D5W 400 MG/200 ML BAG IVPB ONE (15:11)
[2017-04-02] MEDS: Ciprofloxacin 400mg/200ml D5W 400 MG/200 ML BAG IVPB SCH (15:15)
[2017-04-02 15:52] LABS: INR 1.2; PROTHROMBIN TIME 13.5 SECONDS (9.7-12.2)
[2017-04-02] MEDS ORDERED: Iodixanol 320 MG/ML 100 ML BOTTLE IV ONE (15:58)
[2017-04-02 16:34] LABS: HIV 1&2 ANTIBODY NEGATIVE (NEGATIVE)
[2017-04-02 16:35] LABS: ALPHA FETO PROTEIN 1.6 ng/mL (0.0-7.5)
--- NOTE | 2017-04-02 17:18 | CT ---
PROCEDURE: CT Abdomen and Pelvis with oral and IV contrast. HISTORY: abdominal pain, diarrhea COMPARISON: CT abdomen and pelvis with oral and IV contrast performed 01/24/17 TECHNIQUE: Contiguous axial images of the abdomen and pelvis. Oral and IV contrast was administered. Coronal and Sagittal reformats generated and reviewed. Contrast dose: 100 mL Visipaque Radiation dose: Total exam DLP = 1072.10 MGy-cm. This CT exam was performed using one or more of the following dose reduction techniques: Automated exposure control, adjustment of the mA and/or kV according to patient size, and/or use of iterative reconstruction technique. FINDINGS: LOWER THORAX: No visible consolidation, pleural effusion, or pneumothorax. 5 mm left lower lobe nodule (series 5, image 19). LIVER: Multiple hypodense hepatic masses. Largest lesion resides within the right hepatic lobe measuring approximately 5.1 cm (image 48) and contains several peripheral hyperdense foci. 1.3 cm right hepatic lobe enhancing focus, indeterminate (image 48). GALLBLADDER AND BILE DUCTS: Unremarkable. PANCREAS: Unremarkable. SPLEEN: Unremarkable. ADRENALS: Unremarkable. KIDNEYS AND URETERS: The kidneys enhance symmetrically. No hydronephrosis or obstructing renal calculus. BLADDER: The urinary bladder appears unremarkable. REPRODUCTIVE: Unremarkable. APPENDIX: The appendix appears within normal limits of caliber. No secondary signs of acute appendicitis. BOWEL: The stomach is nondistended. The bowel loops appear within normal limits of caliber without evidence of intestinal obstruction. PERITONEUM: No significant free fluid. No definite free air. LYMPH NODES: No bulky lymphadenopathy identified. VASCULATURE: No aortic aneurysm. BONES: No acute osseous abnormality is detected. OTHER FINDINGS: Fat containing umbilical hernia. Bilateral fat containing inguinal hernias. IMPRESSION: Diverticulosis without CT evidence of acute diverticulitis. Multiple hypodense hepatic masses, the largest measuring approximately 5.1 cm with several peripheral hyperdense foci. 1.3 cm right hepatic lobe enhancing focus, indeterminate. Malignant and benign etiologies must be considered. Dedicated three-phase imaging recommended for further evaluation. 5 mm left lower lobe nodule. According to 2017 Fleischner criteria, if the patient is low risk, no routine follow-up is recommended. If the patient is high risk, an optional CT at 12 months is recommended. Fat containing umbilical hernia. Bilateral fat containing inguinal hernias.
[2017-04-02] MEDS ORDERED: Pneumococcal 23-Valent Vaccine IM ONE (17:36)
[2017-04-02] MEDS: (Novolin R) Insulin Human Regular 100 units/ml vial SC SCH ×2 (17:48→21:10)
[2017-04-02 19:46] LABS: HEPATITIS B SURFACE AG Negative (NEGATIVE)
[2017-04-02 19:51] LABS: HEPATITIS A IGM NEGATIVE (NEGATIVE); HEPATITIS B CORE AB NEGATIVE (NEGATIVE)
[2017-04-02 20:03] LABS: HEPATITIS C ANTIBODY NEGATIVE (NEGATIVE)
[2017-04-02] MEDS: Rosuvastatin Calcium 2.5 mg Tab PO SCH (20:59)
[2017-04-02] MEDS: metroNIDAZOLE IV 500 mg/100 ml 500 MG/100 ML BAG IVPB SCH (21:03)
[2017-04-02] MEDS: Brimonidine 0.2% Opth Sol (5ml) OD SCH (21:03)
[2017-04-03] MEDS: Ciprofloxacin 400mg/200ml D5W 400 MG/200 ML BAG IVPB SCH ×2 (04:00→14:45)
[2017-04-03] MEDS: Levothyroxine 25 MCG TAB PO SCH (05:58)
[2017-04-03] MEDS: metroNIDAZOLE IV 500 mg/100 ml 500 MG/100 ML BAG IVPB SCH ×3 (05:58→21:05)
[2017-04-03] MEDS: Brimonidine 0.2% Opth Sol (5ml) OD SCH ×2 (06:47→19:30)
[2017-04-03 07:36] LABS: BASO % 0.2 % (0.0-2.0); EOS # 0.1 K/uL (0.0-0.7); EOS % 0.7 % (0.0-4.0); HEMOGLOBIN 12.5 g/dL (12.0-18.0); LYMPH % 12.4 % (20.0-40.0); MEAN CELL VOLUME 88.2 fL (80.0-94.0); MEAN CORPUSCULAR HEMOGLOBIN 30.3 pg (27.0-31.0); MEAN CORPUSCULAR HGB CONC 34.4 g/dL (33.0-37.0); MEAN PLATELET VOLUME 8.5 fL (7.2-11.7); MONO % 12.9 % (0.0-10.0); NEUT # 5.9 K/uL (1.8-7.0); NEUT % 73.8 % (50.0-75.0); NRBC % 0.1 % (0.0-2.0); RBC 4.14 Mil/uL (4.40-5.90); RED CELL DISTRIBUTION WIDTH 15.7 % (11.5-14.5); WHITE BLOOD COUNT 7.9 K/uL (4.8-10.8)
[2017-04-03] MEDS: (Novolin R) Insulin Human Regular 100 units/ml vial SC SCH ×4 (08:08→22:21)
[2017-04-03 08:30] LABS: ALB/GLOB RATIO 1.2 (1.0-2.1); ALBUMIN 3.8 g/dL (3.5-5.0); ALT/SGPT 31 U/L (21-72); AST/SGOT 23 U/L (17-59); BLOOD UREA NITROGEN 17 mg/dL (9-20); CALCIUM 8.8 mg/dl (8.6-10.4); GFR AFRICAN-AMERICAN > 60; GFR NON-AFRICAN AMERICAN > 60
[2017-04-03] MEDS ORDERED: Influenza Vaccine 60 mcg/0.5 mL SYR (4YR UP) IM ONE (10:00)
[2017-04-03] MEDS ORDERED: Pneumococcal 23-Valent Vaccine IM ONE (10:00)
[2017-04-03] MEDS: Pantoprazole 40 mg EC Tab PO SCH (10:03)
[2017-04-03] MEDS: Fluticasone-Salmeterol 250-50mcg Diskus IH SCH ×2 (10:12→21:11)
--- NOTE | 2017-04-03 10:29 | RAD ---
HISTORY: COMPARISON: 04/02/2027 TECHNIQUE: Chest PA and lateral FINDINGS: LINES AND TUBES: None. LUNG AND PLEURA: The lungs are well inflated and clear. HEART AND MEDIASTINUM: The heart is not enlarged. The hilar and mediastinal contours are within normal limits. SKELETAL STRUCTURES: The bony structures are within normal limits for the patient's age. VISUALIZED UPPER ABDOMEN: Normal. OTHER FINDINGS: None. IMPRESSION: No active pulmonary disease.
--- NOTE | 2017-04-03 12:38 | CP.PCM.CON ---
History of Present Illness - History of Present Illness History of Present Illness: GI Service consult requested to evaluate liver lesions Patient is found to have numerous lesions in liver on CT scan which was done to evaluate diarrhea. The patient is extremely anxious about this. The patient has been thoroughly worked up for these lesions over the past year and had Ct scans , MRI, Numerous labs including KORTNEY, Hepatitis profile, AFP all of which are normal. The MRI in Nov 2015 showed liver lesions consistent with Hemangiomas. This was compared to sonograms from 2014 and 2016. Patient also has chronic diarrhea and abdominal pain for which he had Colonoscopy with stool studies and these were also negative except for a small sigmoid hyperplastic polyp. Past Patient History - Infectious Disease Hx of Infectious Diseases: None - Past Medical History & Family History Past Medical History?: Yes - Past Social History Smoking Status: Never Smoked - CARDIAC Hx Congestive Heart Failure: Yes Hx Hypercholesterolemia: Yes Hx Hypertension: Yes - PULMONARY Hx Asthma: Yes Hx Chronic Obstructive Pulmonary Disease (COPD): Yes - NEUROLOGICAL Hx Neurological Disorder: No Hx Seizures: No - HEENT Hx HEENT Problems: Yes Hx Blind: Yes (left eye) Hx Glaucoma: Yes Other/Comment: lt. eye blind - RENAL Hx Kidney Stones: Yes (KIDNEY STENT 2007) - ENDOCRINE/METABOLIC Hx Hypothyroidism: Yes - HEMATOLOGICAL/ONCOLOGICAL Hx Blood Disorders: No Hx Human Immunodeficiency Virus (HIV): No - INTEGUMENTARY Hx Dermatological Problems: No - MUSCULOSKELETAL/RHEUMATOLOGICAL Hx Musculoskeletal Disorders: No Hx Falls: No - GASTROINTESTINAL Hx Diverticulitis: Yes - PSYCHIATRIC Hx Depression: Yes Hx Paranoia: Yes Hx Substance Use: No - SURGICAL HISTORY Hx Surgeries: Yes Other/Comment: KIDNEY STENT, LEFT EYE SURGERY X3 - ANESTHESIA Hx Anesthesia: Yes Hx Anesthesia Reactions: No Hx Malignant Hyperthermia: No (UNKNOWN) Has any member of the family had a problem w/ anesthesia?: No Meds Allergies/Adverse Reactions: Allergies Allergy/AdvReac Type Severity Reaction Status Date / Time hydromorphone HCl Allergy SHORTNESS Verified 02/19/17 07:47 [From Dilaudid] OF BREATH morphine Allergy HEADACHE Verified 02/19/17 07:47 - Medications Medications: Current Medications Albuterol (Ventolin Hfa 90 Mcg/Actuation (8 G)) 2 puff IH RQ6 PRN PRN Reason: Shortness of Breath Aspirin (Ecotrin) 81 mg PO DAILY [facility] Last Admin: 02/07/18 10:03 Dose: 81 mg Brimonidine Tartrate (Alphagan 0.2% Opht) 0 ml OD Q12H [facility] Last Admin: 04/03/17 06:47 Dose: 1 drop Carvedilol (Coreg) 25 mg PO Q12H [facility] Last Admin: 04/03/17 06:44 Dose: 25 mg Furosemide (Lasix) 40 mg PO BID [facility] Last Admin: 04/03/17 10:04 Dose: 40 mg Heparin Sodium (Porcine) (Heparin) 5,000 units SC Q12 [facility] Last Admin: 04/03/17 10:03 Dose: 5,000 units Hydrochlorothiazide (Microzide) 12.5 mg PO DAILY [facility] Last Admin: 04/03/17 10:03 Dose: 12.5 mg Ciprofloxacin (Cipro 400mg/200ml Dsw) 400 mg in 200 mls @ 133 mls/hr IVPB Q12H [facility] Last Admin: 04/03/17 04:00 Dose: 133 mls/hr Metronidazole (Flagyl) 500 mg in 100 mls @ 100 mls/hr IVPB Q8 [facility] Last Admin: 04/03/17 05:58 Dose: 100 mls/hr Insulin Human Regular (Novolin R) 0 unit SC ACHS [facility] PRN Reason: Protocol Last Admin: 04/03/17 08:08 Dose: Not Given Levothyroxine Sodium (Synthroid) 25 mcg PO DAILY@0630 [facility] Last Admin: 04/03/17 05:58 Dose: 25 mcg Losartan Potassium (Cozaar) 100 mg PO DAILY [facility] Last Admin: 04/03/17 10:04 Dose: 100 mg Pantoprazole Sodium (Protonix Ec Tab) 40 mg PO DAILY [facility] Last Admin: 04/03/17 10:03 Dose: 40 mg Rosuvastatin Calcium (Crestor) 2.5 mg PO HS [facility] Last Admin: 04/02/17 20:59 Dose: 2.5 mg Fluticasone/Salmeterol (Advair Diskus 250/50) 1 puff IH RQ12 [facility] Last Admin: 04/03/17 10:12 Dose: 1 puff Spironolactone (Aldactone) 25 mg PO DAILY [facility] Last Admin: 04/03/17 10:03 Dose: 25 mg Timolol Maleate (Timoptic 0.5% Ophth Soln) 0 drop OU Q12H [facility] Last Admin: 04/03/17 06:49 Dose: 1 % Physical Exam - Constitutional Appears: Well, No Acute Distress - Head Exam Head Exam: NORMOCEPHALIC - Eye Exam Additional comments: Left eye surgical changes - ENT Exam ENT Exam: Normal Exam - Neck Exam Neck exam: Positive for: Normal Inspection - Respiratory Exam Respiratory Exam: NORMAL BREATHING PATTERN - Cardiovascular Exam Cardiovascular Exam: REGULAR RHYTHM - GI/Abdominal Exam GI & Abdominal Exam: Soft. absent: Guarding, Mass, Organomegaly, Rebound - Rectal Exam Rectal Exam: Deferred - Extremities Exam Extremities exam: Positive for: normal inspection - Neurological Exam Neurological exam: Alert, Oriented x3 - Psychiatric Exam Psychiatric exam: Anxious - Skin Additional comments: hyperpigmented skin on face Results - Vital Signs Recent Vital Signs: Last Vital Signs Temp 98.0 F 04/03/17 07:35 Pulse 78 04/03/17 07:35 Resp 20 04/03/17 07:35 BP 109/73 04/03/17 10:04 Pulse Ox 97 04/03/17 07:35 - Labs Result Diagrams: 04/03/17 07:18 04/03/17 07:18 Labs: Laboratory Results - last 24 hr 04/02/17 04/02/17 04/02/17 14:47 15:31 15:31 WBC RBC Hgb Hct MCV MCH MCHC RDW Plt Count MPV Neut % (Auto) Lymph % (Auto) [place] % (Auto) Eos % (Auto) Baso % (Auto) Neut # (Auto) Lymph # (Auto) [place] # (Auto) Eos # (Auto) Baso # (Auto) ESR 46 H PT INR APTT Sodium Potassium Chloride Carbon Dioxide Anion Gap BUN Creatinine Est GFR ( Amer) Est GFR (Non-Af Amer) POC Glucose (mg/dL) 103 Random Glucose Hemoglobin A1c Calcium Total Bilirubin GGT AST ALT Alkaline Phosphatase C-React Prot High Sens > 15.00 H Total Protein Albumin Globulin Albumin/Globulin Ratio Alpha Fetoprotein Hepatitis A IgM Ab Hep Bs Antigen Hep B Core IgM Ab Hepatitis C Antibody HIV 1&2 Antibody Screen 04/02/17 04/02/17 04/02/17 15:31 15:31 15:31 WBC RBC Hgb Hct MCV MCH MCHC RDW Plt Count MPV Neut % (Auto) Lymph % (Auto) [place] % (Auto) Eos % (Auto) Baso % (Auto) Neut # (Auto) Lymph # (Auto) [place] # (Auto) Eos # (Auto) Baso # (Auto) ESR PT 13.5 H INR 1.2 APTT 27 Sodium Potassium Chloride Carbon Dioxide Anion Gap BUN Creatinine Est GFR ( Amer) Est GFR (Non-Af Amer) POC Glucose (mg/dL) Random Glucose Hemoglobin A1c Calcium Total Bilirubin GGT 48 AST ALT Alkaline Phosphatase C-React Prot High Sens Total Protein Albumin Globulin Albumin/Globulin Ratio Alpha Fetoprotein 1.6 Hepatitis A IgM Ab Hep Bs Antigen Hep B Core IgM Ab Hepatitis C Antibody HIV 1&2 Antibody Screen Negative 04/02/17 04/02/17 04/02/17 16:23 16:58 17:22 WBC RBC Hgb Hct MCV MCH MCHC RDW Plt Count MPV Neut % (Auto) Lymph % (Auto) [place] % (Auto) Eos % (Auto) Baso % (Auto) Neut # (Auto) Lymph # (Auto) [place] # (Auto) Eos # (Auto) Baso # (Auto) ESR PT INR APTT Sodium Potassium Chloride Carbon Dioxide Anion Gap BUN Creatinine Est GFR ( Amer) Est GFR (Non-Af Amer) POC Glucose (mg/dL) 103 Random Glucose Hemoglobin A1c 6.8 H Calcium Total Bilirubin GGT AST ALT Alkaline Phosphatase C-React Prot High Sens Total Protein Albumin Globulin Albumin/Globulin Ratio Alpha Fetoprotein Hepatitis A IgM Ab Negative Hep Bs Antigen Negative Hep B Core IgM Ab Negative Hepatitis C Antibody Negative HIV 1&2 Antibody Screen 04/02/17 04/03/17 04/03/17 21:04 06:56 07:18 WBC 7.9 RBC 4.14 L Hgb 12.5 Hct 36.5 MCV 88.2 MCH 30.3 MCHC 34.4 RDW 15.7 H Plt Count 191 MPV 8.5 Neut % (Auto) 73.8 Lymph % (Auto) 12.4 L [place] % (Auto) 12.9 H Eos % (Auto) 0.7 Baso % (Auto) 0.2 Neut # (Auto) 5.9 Lymph # (Auto) 1.0 [place] # (Auto) 1.0 H Eos # (Auto) 0.1 Baso # (Auto) 0.0 ESR PT INR APTT Sodium Potassium Chloride Carbon Dioxide Anion Gap BUN Creatinine Est GFR ( Amer) Est GFR (Non-Af Amer) POC Glucose (mg/dL) 180 H 133 H Random Glucose Hemoglobin A1c Calcium Total Bilirubin GGT AST ALT Alkaline Phosphatase C-React Prot High Sens Total Protein Albumin Globulin Albumin/Globulin Ratio Alpha Fetoprotein Hepatitis A IgM Ab Hep Bs Antigen Hep B Core IgM Ab Hepatitis C Antibody HIV 1&2 Antibody Screen 04/03/17 04/03/17 07:18 11:26 WBC RBC Hgb Hct MCV MCH MCHC RDW Plt Count MPV Neut % (Auto) Lymph % (Auto) [place] % (Auto) Eos % (Auto) Baso % (Auto) Neut # (Auto) Lymph # (Auto) [place] # (Auto) Eos # (Auto) Baso # (Auto) ESR PT INR APTT Sodium 135 Potassium 3.9 Chloride 100 Carbon Dioxide 24 Anion Gap 15 BUN 17 Creatinine 0.9 Est GFR ( Amer) > 60 Est GFR (Non-Af Amer) > 60 POC Glucose (mg/dL) 147 H Random Glucose 130 H Hemoglobin A1c Calcium 8.8 Total Bilirubin 0.4 GGT AST 23 ALT 31 Alkaline Phosphatase 50 C-React Prot High Sens Total Protein 7.0 Albumin 3.8 Globulin 3.2 Albumin/Globulin Ratio 1.2 Alpha Fetoprotein Hepatitis A IgM Ab Hep Bs Antigen Hep B Core IgM Ab Hepatitis C Antibody HIV 1&2 Antibody Screen Assessment & Plan (1) Liver masses Assessment and Plan: Extensive prior workup is consistent with hepatic hemangiomas (see above note and radiologic studies / labs on record) Patient is quite anxious about malignancy, and I will therefore order Hemangioma scan Status: Acute (2) Abdominal pain Assessment and Plan: Chronic IBS predominant IBS treat symptomatically when needed Colonoscopy last year WNL Status: Acute - Date & Time Date: 04/03/17 Time: 12:43
--- NOTE | 2017-04-03 12:55 | CP.PCM.PN ---
<HenryHugoGlobe - Last Filed: 04/03/17 17:45> Subjective - Date & Time of Evaluation Date of Evaluation: 04/03/17 Time of Evaluation: 06:52 - Subjective Subjective: Patient seen and examined at bedside. Per nursing no acute events occurred overnight. The patient still is reporting abdominal pain and diarrhea overnight. The patient denies any blood in the stool. Francis any chest pain, lightheadedness, dizziness, change of vision, nausea, vomiting, or any other complaints. Objective - Vital Signs/Intake and Output Vital Signs (last 24 hours): Temp Pulse Resp BP Pulse Ox 98.0 F 78 20 109/73 97 04/03/17 07:35 04/03/17 07:35 04/03/17 07:35 04/03/17 10:04 04/03/17 07:35 - Medications Medications: Current Medications Albuterol (Ventolin Hfa 90 Mcg/Actuation (8 G)) 2 puff IH RQ6 PRN PRN Reason: Shortness of Breath Aspirin (Ecotrin) 81 mg PO DAILY [facility] Last Admin: 04/03/17 10:03 Dose: 81 mg Brimonidine Tartrate (Alphagan 0.2% Opht) 0 ml OD Q12H [facility] Last Admin: 04/03/17 06:47 Dose: 1 drop Carvedilol (Coreg) 25 mg PO Q12H [facility] Last Admin: 04/03/17 06:44 Dose: 25 mg Furosemide (Lasix) 40 mg PO BID [facility] Last Admin: 04/03/17 10:04 Dose: 40 mg Heparin Sodium (Porcine) (Heparin) 5,000 units SC Q12 [facility] Last Admin: 04/03/17 10:03 Dose: 5,000 units Hydrochlorothiazide (Microzide) 12.5 mg PO DAILY [facility] Last Admin: 04/03/17 10:03 Dose: 12.5 mg Ciprofloxacin (Cipro 400mg/200ml Dsw) 400 mg in 200 mls @ 133 mls/hr IVPB Q12H [facility] Last Admin: 04/03/17 04:00 Dose: 133 mls/hr Metronidazole (Flagyl) 500 mg in 100 mls @ 100 mls/hr IVPB Q8 [facility] Last Admin: 04/03/17 05:58 Dose: 100 mls/hr Insulin Human Regular (Novolin R) 0 unit SC ACHS [facility] PRN Reason: Protocol Last Admin: 04/03/17 08:08 Dose: Not Given Levothyroxine Sodium (Synthroid) 25 mcg PO DAILY@0630 [facility] Last Admin: 04/03/17 05:58 Dose: 25 mcg Losartan Potassium (Cozaar) 100 mg PO DAILY [facility] Last Admin: 04/03/17 10:04 Dose: 100 mg Pantoprazole Sodium (Protonix Ec Tab) 40 mg PO DAILY [facility] Last Admin: 04/03/17 10:03 Dose: 40 mg Rosuvastatin Calcium (Crestor) 2.5 mg PO HS [facility] Last Admin: 04/02/17 20:59 Dose: 2.5 mg Fluticasone/Salmeterol (Advair Diskus 250/50) 1 puff IH RQ12 [facility] Last Admin: 04/03/17 10:12 Dose: 1 puff Spironolactone (Aldactone) 25 mg PO DAILY [facility] Last Admin: 04/03/17 10:03 Dose: 25 mg Timolol Maleate (Timoptic 0.5% Oph Soln) 0 drop OU Q12H [facility] Last Admin: 04/03/17 06:49 Dose: 1 % - Labs Labs: 04/03/17 07:18 04/03/17 07:18 PT 13.5 SECONDS (9.7-12.2) H 04/02/17 15:31 INR 1.2 04/02/17 15:31 APTT 27 SECONDS (21-34) 04/02/17 15:31 - Head Exam Head Exam: ATRAUMATIC, NORMAL INSPECTION, NORMOCEPHALIC - Eye Exam Eye Exam: EOMI, Normal appearance, PERRL. absent: Periorbital tenderness Pupil Exam: NORMAL ACCOMODATION, PERRL. absent: Irregular, Unequal - ENT Exam ENT Exam: Mucous Membranes Moist, Normal Exam, Normal Oropharynx - Neck Exam Neck Exam: absent: Lymphadenopathy, Thyromegaly - Respiratory Exam Respiratory Exam: Clear to Ausculation Bilateral, NORMAL BREATHING PATTERN. absent: Chest Wall Tenderness, Prolonged Expiratory Phase, Respiratory Distress - Cardiovascular Exam Cardiovascular Exam: REGULAR RHYTHM, RRR, +S1, +S2. absent: Gallop, Rubs - GI/Abdominal Exam GI & Abdominal Exam: Soft, Normal Bowel Sounds. absent: Rigid, Hyperactive Bowel Sounds - Extremities Exam Extremities Exam: Full ROM. absent: Joint Swelling, Pedal Edema, Tenderness - Back Exam Back Exam: NORMAL INSPECTION. absent: CVA tenderness (L), CVA tenderness (R), paraspinal tenderness - Neurological Exam Neurological Exam: Alert, Awake, Normal Gait, Oriented x3 - Psychiatric Exam Psychiatric exam: Normal Affect, Normal Mood - Skin Skin Exam: Dry, Intact, Normal Color Assessment and Plan - Assessment and Plan (Free Text) Plan: Abdominal pain/Diarrhea Assessment and Plan: * R/O diverticulitis vs. colitis vs. immune etiology * ESR: elevated 40 * CRP: f/u results * KORTNEY: f/u results * AFP: f/u results * GGT: f/u results * Hepatitis panel: negative * HIV: negative * C.diff: f/u results * Stool occult: f/u results * Stool leukocytes: f/u results * anti-torres, dna, SCL-70: F/U with results * Stool ova and parasites: f/u results * Continue Cipro 400mg IV Q12h, Flagyl 500mg IV Q8hr * Discontinue IV fluids @40mls; * GI consulted. Will f/u with rec's. Asthma Assessment and Plan: * Continue home medications (Advair to replace Symbicort) * O2 via nasal cannula prn * CXR: mild venous congestion, mild patchy increased markings at left lung base , tortuous aorta, mild cardiomegaly. CHF Assessment and Plan: * Continue home medications * CXR: mild venous congestion, mild patchy increased markings at left lung base , tortuous aorta, mild cardiomegaly. * Repeat CXR in AM: showed some increase in congestion. Fluids discontinued. * ECHO (08/2013) LV systolic function moderately impaired, EF 30-35%, abnormal LV diastolic dysfunction. HTN (hypertension) Assessment and Plan: * Continue home medications Hyperlipemia Assessment and Plan: * Continue home medications Diabetes Mellitus Assessment and Plan: * Home medications: Metformin 500mg PO daily * A1c: 6.8% * ISS * Hypoglycemia protocol * Monitor blood glucose, accuchecks Prophylactic measure Assessment and Plan: * Heparin 5000 SC Q8h, SCDs * Protonix 40mg PO daily <Wei Cunningham - Last Filed: 04/04/17 07:28> Objective - Vital Signs/Intake and Output Vital Signs (last 24 hours): Temp Pulse Resp BP Pulse Ox 97.3 F L 76 20 110/75 96 04/03/17 23:20 04/03/17 23:20 04/03/17 23:20 04/04/17 07:04 04/03/17 23:20 - Medications Medications: Current Medications Albuterol (Ventolin Hfa 90 Mcg/Actuation (8 G)) 2 puff IH RQ6 PRN PRN Reason: Shortness of Breath Aspirin (Ecotrin) 81 mg PO DAILY [facility] Last Admin: 04/03/17 10:03 Dose: 81 mg Brimonidine Tartrate (Alphagan 0.2% Opht) 0 ml OD Q12H [facility] Last Admin: 04/04/17 06:37 Dose: 1 drop Carvedilol (Coreg) 25 mg PO Q12H [facility] Last Admin: 04/04/17 07:04 Dose: 25 mg Furosemide (Lasix) 40 mg PO BID [facility] Last Admin: 04/03/17 17:44 Dose: 40 mg Heparin Sodium (Porcine) (Heparin) 5,000 units SC Q12 [facility] Last Admin: 04/03/17 21:05 Dose: 5,000 units Hydrochlorothiazide (Microzide) 12.5 mg PO DAILY [facility] Last Admin: 04/03/17 10:03 Dose: 12.5 mg Ciprofloxacin (Cipro 400mg/200ml Dsw) 400 mg in 200 mls @ 133 mls/hr IVPB Q12H [facility] Last Admin: 04/04/17 04:35 Dose: 133 mls/hr Metronidazole (Flagyl) 500 mg in 100 mls @ 100 mls/hr IVPB Q8 [facility] Last Admin: 04/04/17 05:10 Dose: 100 mls/hr Insulin Human Regular (Novolin R) 0 unit SC ACHS [facility] PRN Reason: Protocol Last Admin: 04/03/17 22:21 Dose: Not Given Levothyroxine Sodium (Synthroid) 25 mcg PO DAILY@0630 [facility] Last Admin: 04/04/17 06:36 Dose: 25 mcg Losartan Potassium (Cozaar) 100 mg PO DAILY [facility] Last Admin: 04/03/17 10:04 Dose: 100 mg Pantoprazole Sodium (Protonix Ec Tab) 40 mg PO DAILY [facility] Last Admin: 04/03/17 10:03 Dose: 40 mg Rosuvastatin Calcium (Crestor) 2.5 mg PO HS [facility] Last Admin: 04/03/17 21:06 Dose: 2.5 mg Fluticasone/Salmeterol (Advair Diskus 250/50) 1 puff IH RQ12 [facility] Last Admin: 04/03/17 21:11 Dose: 1 puff Spironolactone (Aldactone) 25 mg PO DAILY [facility] Last Admin: 04/03/17 10:03 Dose: 25 mg Timolol Maleate (Timoptic 0.5% Ophth Soln) 0 drop OU Q12H [facility] Last Admin: 04/04/17 06:37 Dose: 1 drop - Labs Labs: 04/03/17 07:18 04/03/17 07:18 PT 13.5 SECONDS (9.7-12.2) H 04/02/17 15:31 INR 1.2 04/02/17 15:31 APTT 27 SECONDS (21-34) 04/02/17 15:31 Attending/Attestation - Attestation I have personally seen and examined this patient.: Yes I have fully participated in the care of the patient.: Yes I have reviewed all pertinent clinical information, including history, physical exam and plan: Yes Notes (Text): 04/04/17 07:28 Medical attending: Patient was seen and examined by me, we saw together the patient with the medical services assistant. I reviewed the above note by medical services assistant and agree The patient this morning was very anxious he had any questions and had to be redirected multiple times during our conversation. We went over the CT scan results of his abdomen and pelvis. The CAT scan had concerning findings for liver lesions greatest in size being 5 cm area the report suggested there was not clear if this could represent a benign or malignant etiology. He also had another previous CAT scan about 1 month ago with similar findings were the liver. That CAT scan is concerning for malignant findings. We ordered a hepatitis study. We will try to get a GI evaluation as well. He is on Cipro and Flagyl IV when he was admitted because we were concerned for potential for diverticulitis however the CAT scans have not suggested this. Were still waiting on the stool O+P, stool leukocytes, stool blood at this moment The patient during the morning reported he still had the ongoing diarrhea. He is tolerating diet he is able to take liquids by mouth. Because of history of CHF we got a new chest x-ray that morning and it looked like he had a little bit more congestion particularly on the right side because were giving him fluids overnight. So we've stopped the fluids. We also discussed with the patient his facial skin discoloration. He says that this is a new finding he's never had it before. We have sent for autoimmune studies. Wei Cunningham
[2017-04-03 14:50] LABS: ANA PATTERN NUCLEOLAR
[2017-04-03] MEDS: Rosuvastatin Calcium 2.5 mg Tab PO SCH (21:06)
[2017-04-04] MEDS: Ciprofloxacin 400mg/200ml D5W 400 MG/200 ML BAG IVPB SCH ×2 (04:35→15:03)
[2017-04-04] MEDS: metroNIDAZOLE IV 500 mg/100 ml 500 MG/100 ML BAG IVPB SCH ×3 (05:10→21:24)
[2017-04-04] MEDS: Levothyroxine 25 MCG TAB PO SCH (06:36)
[2017-04-04] MEDS: Brimonidine 0.2% Opth Sol (5ml) OD SCH ×2 (06:37→18:58)
[2017-04-04] MEDS: (Novolin R) Insulin Human Regular 100 units/ml vial SC SCH ×4 (08:10→21:23)
[2017-04-04 08:16] LABS: ALB/GLOB RATIO 1.1 (1.0-2.1); ALBUMIN 4.1 g/dL (3.5-5.0); ALT/SGPT 37 U/L (21-72); AST/SGOT 26 U/L (17-59); BLOOD UREA NITROGEN 23 mg/dL (9-20); CALCIUM 8.9 mg/dl (8.6-10.4); GFR AFRICAN-AMERICAN > 60; GFR NON-AFRICAN AMERICAN > 60
[2017-04-04] MEDS: Albuterol HFA 90 mcg/actuation (8 g) IH PRN (08:19)
[2017-04-04] MEDS: Fluticasone-Salmeterol 250-50mcg Diskus IH SCH ×2 (08:19→20:22)
[2017-04-04 08:26] LABS: BASO % 0.3 % (0.0-2.0); EOS # 0.1 K/uL (0.0-0.7); HEMOGLOBIN 13.1 g/dL (12.0-18.0); LYMPH # 1.3 K/uL (1.0-4.3); LYMPH % 14.2 % (20.0-40.0); MEAN CELL VOLUME 88.4 fL (80.0-94.0); MEAN CORPUSCULAR HEMOGLOBIN 30.1 pg (27.0-31.0); MEAN PLATELET VOLUME 8.5 fL (7.2-11.7); MONO # 1.2 K/uL (0.0-0.8); MONO % 12.4 % (0.0-10.0); NEUT # 6.7 K/uL (1.8-7.0); NEUT % 72.1 % (50.0-75.0); NRBC % 0.5 % (0.0-2.0); RBC 4.36 Mil/uL (4.40-5.90); RED CELL DISTRIBUTION WIDTH 15.3 % (11.5-14.5); WHITE BLOOD COUNT 9.3 K/uL (4.8-10.8)
--- NOTE | 2017-04-04 08:51 | CP.PCM.PN ---
Subjective - Date & Time of Evaluation Date of Evaluation: 04/04/17 Time of Evaluation: 08:47 - Subjective Subjective: F/u liver lesions, diarrhea Anxious. Reports chr diarrhea. Loose stools multiple. Abdom pain- cramps, mild Denies RB, melena, Cp, SOB, fever, hematuria, FISCHER Objective - Vital Signs/Intake and Output Vital Signs (last 24 hours): Temp Pulse Resp BP Pulse Ox 98.1 F 83 20 110/75 95 04/04/17 07:38 04/04/17 07:38 04/04/17 07:38 04/04/17 07:38 04/04/17 07:38 - Medications Medications: Current Medications Albuterol (Ventolin Hfa 90 Mcg/Actuation (8 G)) 2 puff IH RQ6 PRN PRN Reason: Shortness of Breath Last Admin: 04/04/17 08:19 Dose: 2 puff Aspirin (Ecotrin) 81 mg PO DAILY [facility] Last Admin: 04/03/17 10:03 Dose: 81 mg Brimonidine Tartrate (Alphagan 0.2% Opht) 0 ml OD Q12H [facility] Last Admin: 04/04/17 06:37 Dose: 1 drop Carvedilol (Coreg) 25 mg PO Q12H [facility] Last Admin: 04/04/17 07:04 Dose: 25 mg Furosemide (Lasix) 40 mg PO BID [facility] Last Admin: 04/03/17 17:44 Dose: 40 mg Heparin Sodium (Porcine) (Heparin) 5,000 units SC Q12 [facility] Last Admin: 04/03/17 21:05 Dose: 5,000 units Hydrochlorothiazide (Microzide) 12.5 mg PO DAILY [facility] Last Admin: 04/03/17 10:03 Dose: 12.5 mg Ciprofloxacin (Cipro 400mg/200ml Dsw) 400 mg in 200 mls @ 133 mls/hr IVPB Q12H [facility] Last Admin: 04/04/17 04:35 Dose: 133 mls/hr Metronidazole (Flagyl) 500 mg in 100 mls @ 100 mls/hr IVPB Q8 [facility] Last Admin: 04/04/17 05:10 Dose: 100 mls/hr Insulin Human Regular (Novolin R) 0 unit SC ACHS [facility] PRN Reason: Protocol Last Admin: 04/04/17 08:10 Dose: Not Given Levothyroxine Sodium (Synthroid) 25 mcg PO DAILY@0630 [facility] Last Admin: 04/04/17 06:36 Dose: 25 mcg Losartan Potassium (Cozaar) 100 mg PO DAILY [facility] Last Admin: 04/03/17 10:04 Dose: 100 mg Pantoprazole Sodium (Protonix Ec Tab) 40 mg PO DAILY [facility] Last Admin: 04/03/17 10:03 Dose: 40 mg Rosuvastatin Calcium (Crestor) 2.5 mg PO HS [facility] Last Admin: 04/03/17 21:06 Dose: 2.5 mg Fluticasone/Salmeterol (Advair Diskus 250/50) 1 puff IH RQ12 [facility] Last Admin: 04/04/17 08:19 Dose: 1 puff Spironolactone (Aldactone) 25 mg PO DAILY [facility] Last Admin: 04/03/17 10:03 Dose: 25 mg Timolol Maleate (Timoptic 0.5% Ophth Soln) 0 drop OU Q12H [facility] Last Admin: 04/04/17 06:37 Dose: 1 drop - Labs Labs: 04/04/17 07:13 04/04/17 07:13 PT 13.5 SECONDS (9.7-12.2) H 04/02/17 15:31 INR 1.2 04/02/17 15:31 APTT 27 SECONDS (21-34) 04/02/17 15:31 - Constitutional Appears: Well - Respiratory Exam Respiratory Exam: Clear to Ausculation Bilateral - Cardiovascular Exam Cardiovascular Exam: RRR - GI/Abdominal Exam GI & Abdominal Exam: Soft, Normal Bowel Sounds. absent: Tenderness - Neurological Exam Neurological Exam: Alert, Awake, Oriented x3 Assessment and Plan (1) Diabetes mellitus Status: Acute (2) Abdominal pain Assessment & Plan: IBS. Chronic Status: Acute (3) Asthma Status: Acute (4) Diarrhea Assessment & Plan: For many years. HAd colonosocpy lst year. C difficile is neg. OB is neg. Stool wbc is neg. Likley IBS. Status: Acute (5) HTN (hypertension) Status: Acute (6) Liver masses Assessment & Plan: Check hemangioma scan Status: Acute
--- NOTE | 2017-04-04 09:18 | CP.PCM.PN ---
Subjective - Date & Time of Evaluation Date of Evaluation: 04/04/17 Time of Evaluation: :18 - Subjective Subjective: Patient seen and examined at bedside. Per nursing no acute events occurred overnight. The patient still is reporting abdominal discomfort and diarrhea. The patient denies any blood in the stool. Francis any chest pain, lightheadedness , dizziness, change of vision, nausea, vomiting, or any other complaints. Objective - Vital Signs/Intake and Output Vital Signs (last 24 hours): Temp Pulse Resp BP Pulse Ox 98.1 F 83 20 110/75 95 04/04/17 07:38 04/04/17 07:38 04/04/17 07:38 04/04/17 07:38 04/04/17 07:38 - Medications Medications: Current Medications Albuterol (Ventolin Hfa 90 Mcg/Actuation (8 G)) 2 puff IH RQ6 PRN PRN Reason: Shortness of Breath Last Admin: 04/04/17 08:19 Dose: 2 puff Aspirin (Ecotrin) 81 mg PO DAILY [facility] Last Admin: 04/03/17 10:03 Dose: 81 mg Brimonidine Tartrate (Alphagan 0.2% Opht) 0 ml OD Q12H [facility] Last Admin: 04/04/17 06:37 Dose: 1 drop Carvedilol (Coreg) 25 mg PO Q12H [facility] Last Admin: 04/04/17 07:04 Dose: 25 mg Furosemide (Lasix) 40 mg PO BID [facility] Last Admin: 04/03/17 17:44 Dose: 40 mg Heparin Sodium (Porcine) (Heparin) 5,000 units SC Q12 [facility] Last Admin: 04/03/17 21:05 Dose: 5,000 units Hydrochlorothiazide (Microzide) 12.5 mg PO DAILY [facility] Last Admin: 04/03/17 10:03 Dose: 12.5 mg Ciprofloxacin (Cipro 400mg/200ml Dsw) 400 mg in 200 mls @ 133 mls/hr IVPB Q12H [facility] Last Admin: 04/04/17 04:35 Dose: 133 mls/hr Metronidazole (Flagyl) 500 mg in 100 mls @ 100 mls/hr IVPB Q8 [facility] Last Admin: 04/04/17 05:10 Dose: 100 mls/hr Insulin Human Regular (Novolin R) 0 unit SC ACHS [facility] PRN Reason: Protocol Last Admin: 04/04/17 08:10 Dose: Not Given Levothyroxine Sodium (Synthroid) 25 mcg PO DAILY@0630 [facility] Last Admin: 04/04/17 06:36 Dose: 25 mcg Losartan Potassium (Cozaar) 100 mg PO DAILY [facility] Last Admin: 04/03/17 10:04 Dose: 100 mg Pantoprazole Sodium (Protonix Ec Tab) 40 mg PO DAILY [facility] Last Admin: 04/03/17 10:03 Dose: 40 mg Rosuvastatin Calcium (Crestor) 2.5 mg PO HS [facility] Last Admin: 04/03/17 21:06 Dose: 2.5 mg Fluticasone/Salmeterol (Advair Diskus 250/50) 1 puff IH RQ12 [facility] Last Admin: 04/04/17 08:19 Dose: 1 puff Spironolactone (Aldactone) 25 mg PO DAILY [facility] Last Admin: 04/03/17 10:03 Dose: 25 mg Timolol Maleate (Timoptic 0.5% Oph Soln) 0 drop OU Q12H [facility] Last Admin: 04/04/17 06:37 Dose: 1 drop - Labs Labs: 04/04/17 07:13 04/04/17 07:13 PT 13.5 SECONDS (9.7-12.2) H 04/02/17 15:31 INR 1.2 04/02/17 15:31 APTT 27 SECONDS (21-34) 04/02/17 15:31 - Head Exam Head Exam: ATRAUMATIC, NORMAL INSPECTION, NORMOCEPHALIC - Eye Exam Eye Exam: EOMI, Normal appearance, PERRL. absent: Nystagmus, Periorbital tenderness Pupil Exam: NORMAL ACCOMODATION, PERRL. absent: Irregular, Unequal - ENT Exam ENT Exam: Mucous Membranes Moist, Normal Oropharynx - Neck Exam Neck Exam: Normal Inspection. absent: Lymphadenopathy, Thyromegaly - Respiratory Exam Respiratory Exam: Clear to Ausculation Bilateral, NORMAL BREATHING PATTERN. absent: Chest Wall Tenderness, Prolonged Expiratory Phase, Respiratory Distress - Cardiovascular Exam Cardiovascular Exam: REGULAR RHYTHM, +S1, +S2 - GI/Abdominal Exam GI & Abdominal Exam: Soft, Normal Bowel Sounds - Extremities Exam Extremities Exam: Full ROM, Normal Inspection. absent: Joint Swelling, Pedal Edema - Back Exam Back Exam: NORMAL INSPECTION. absent: CVA tenderness (R), paraspinal tenderness - Neurological Exam Neurological Exam: Alert, Awake, CN II-XII Intact, Normal Gait, Oriented x3 - Psychiatric Exam Psychiatric exam: Normal Affect, Normal Mood - Skin Skin Exam: Dry, Intact, Normal Color, Warm Assessment and Plan - Assessment and Plan (Free Text) Plan: Abdominal pain/Diarrhea Assessment and Plan: * R/O diverticulitis vs. colitis vs. immune etiology * ESR: elevated 40 * CRP: f/u results * KORTNEY: f/u results * AFP: f/u results * GGT: f/u results * Hepatitis panel: negative * HIV: negative * C.diff: negative * Stool occult:negative * Stool leukocytes: negative * anti-torres, dna, SCL-70: F/U with results * Stool ova and parasites: negative * Continue Cipro 400mg IV Q12h, Flagyl 500mg IV Q8hr * Discontinue IV fluids @40mls; * GI consulted. Will f/u with rec's. Asthma Assessment and Plan: * Continue home medications (Advair to replace Symbicort) * O2 via nasal cannula prn * CXR: mild venous congestion, mild patchy increased markings at left lung base , tortuous aorta, mild cardiomegaly. CHF Assessment and Plan: * Continue home medications * CXR: mild venous congestion, mild patchy increased markings at left lung base , tortuous aorta, mild cardiomegaly. * Repeat CXR in AM: showed some increase in congestion. Fluids discontinued. * ECHO (08/2013) LV systolic function moderately impaired, EF 30-35%, abnormal LV diastolic dysfunction. HTN (hypertension) Assessment and Plan: * Continue home medications Hyperlipemia Assessment and Plan: * Continue home medications Diabetes Mellitus Assessment and Plan: * Home medications: Metformin 500mg PO daily * A1c: 6.8% * ISS * Hypoglycemia protocol * Monitor blood glucose, accuchecks Prophylactic measure Assessment and Plan: * Heparin 5000 SC Q8h, SCDs * Protonix 40mg PO daily
--- NOTE | 2017-04-04 10:32 | CP.PCM.PN ---
<HenryDontaen - Last Filed: 04/04/17 17:43> Subjective - Date & Time of Evaluation Date of Evaluation: 04/04/17 Time of Evaluation: 06:28 - Subjective Subjective: Patient seen and examined at bedside. Per nursing no acute events occurred overnight. The patient is still reporting bilateral lower abdominal pain and diarrhea. The patient denies any chest pain, abdominal pain, fevers, chills, nausea, vomiting, syncopal episodes, headaches or any other complaints. Objective - Vital Signs/Intake and Output Vital Signs (last 24 hours): Temp Pulse Resp BP Pulse Ox 98.1 F 83 20 110/75 95 04/04/17 07:38 04/04/17 07:38 04/04/17 07:38 04/04/17 07:38 04/04/17 07:38 - Medications Medications: Current Medications Albuterol (Ventolin Hfa 90 Mcg/Actuation (8 G)) 2 puff IH RQ6 PRN PRN Reason: Shortness of Breath Last Admin: 04/04/17 08:19 Dose: 2 puff Aspirin (Ecotrin) 81 mg PO DAILY [facility] Last Admin: 04/03/17 10:03 Dose: 81 mg Brimonidine Tartrate (Alphagan 0.2% Opht) 0 ml OD Q12H [facility] Last Admin: 04/04/17 06:37 Dose: 1 drop Carvedilol (Coreg) 25 mg PO Q12H [facility] Last Admin: 04/04/17 07:04 Dose: 25 mg Furosemide (Lasix) 40 mg PO BID [facility] Last Admin: 04/03/17 17:44 Dose: 40 mg Heparin Sodium (Porcine) (Heparin) 5,000 units SC Q12 [facility] Last Admin: 04/03/17 21:05 Dose: 5,000 units Hydrochlorothiazide (Microzide) 12.5 mg PO DAILY [facility] Last Admin: 04/03/17 10:03 Dose: 12.5 mg Ciprofloxacin (Cipro 400mg/200ml Dsw) 400 mg in 200 mls @ 133 mls/hr IVPB Q12H [facility] Last Admin: 04/04/17 04:35 Dose: 133 mls/hr Metronidazole (Flagyl) 500 mg in 100 mls @ 100 mls/hr IVPB Q8 [facility] Last Admin: 04/04/17 05:10 Dose: 100 mls/hr Insulin Human Regular (Novolin R) 0 unit SC ACHS [facility] PRN Reason: Protocol Last Admin: 04/04/17 08:10 Dose: Not Given Levothyroxine Sodium (Synthroid) 25 mcg PO DAILY@0630 [facility] Last Admin: 04/04/17 06:36 Dose: 25 mcg Losartan Potassium (Cozaar) 100 mg PO DAILY [facility] Last Admin: 04/03/17 10:04 Dose: 100 mg Pantoprazole Sodium (Protonix Ec Tab) 40 mg PO DAILY [facility] Last Admin: 04/03/17 10:03 Dose: 40 mg Rosuvastatin Calcium (Crestor) 2.5 mg PO HS [facility] Last Admin: 04/03/17 21:06 Dose: 2.5 mg Fluticasone/Salmeterol (Advair Diskus 250/50) 1 puff IH RQ12 [facility] Last Admin: 04/04/17 08:19 Dose: 1 puff Spironolactone (Aldactone) 25 mg PO DAILY [facility] Last Admin: 04/03/17 10:03 Dose: 25 mg Timolol Maleate (Timoptic 0.5% Ophth Soln) 0 drop OU Q12H [facility] Last Admin: 04/04/17 06:37 Dose: 1 drop - Labs Labs: 04/04/17 07:13 04/04/17 07:13 PT 13.5 SECONDS (9.7-12.2) H 04/02/17 15:31 INR 1.2 04/02/17 15:31 APTT 27 SECONDS (21-34) 04/02/17 15:31 - Head Exam Head Exam: ATRAUMATIC, NORMAL INSPECTION, NORMOCEPHALIC - Eye Exam Eye Exam: EOMI, Normal appearance, PERRL. absent: Periorbital tenderness Pupil Exam: NORMAL ACCOMODATION, PERRL. absent: Irregular, Unequal - ENT Exam ENT Exam: Mucous Membranes Moist, Normal Oropharynx - Neck Exam Neck Exam: Full ROM. absent: Lymphadenopathy, Thyromegaly - Respiratory Exam Respiratory Exam: Clear to Ausculation Bilateral, NORMAL BREATHING PATTERN. absent: Chest Wall Tenderness, Prolonged Expiratory Phase, Respiratory Distress - Cardiovascular Exam Cardiovascular Exam: REGULAR RHYTHM, RRR, +S1, +S2. absent: Rubs - GI/Abdominal Exam GI & Abdominal Exam: Soft, Normal Bowel Sounds. absent: Rigid, Hyperactive Bowel Sounds - Extremities Exam Extremities Exam: Full ROM, Pedal Edema. absent: Joint Swelling - Back Exam Back Exam: NORMAL INSPECTION. absent: CVA tenderness (L), CVA tenderness (R), paraspinal tenderness - Neurological Exam Neurological Exam: Alert, Awake, CN II-XII Intact - Psychiatric Exam Psychiatric exam: Normal Affect, Normal Mood - Skin Skin Exam: Dry, Intact, Normal Color, Warm Assessment and Plan - Assessment and Plan (Free Text) Plan: Abdominal pain/Diarrhea Assessment and Plan: * R/O diverticulitis vs. colitis vs. immune etiology * ESR: elevated 40 * CRP: f/u results * KORTNEY: f/u results * AFP: f/u results * GGT: f/u results * Hepatitis panel: negative * HIV: negative * C.diff: negative * Stool occult:negative * Stool leukocytes: negative * Anti-nucelolar positive * anti-torres, dna, SCL-70: F/U with results * Stool ova and parasites: negative * Continue Cipro 400mg IV Q12h, Flagyl 500mg IV Q8hr * Discontinue IV fluids @40mls; * GI consulted. Hemangioma scan ordered. Will f/u with results. Asthma Assessment and Plan: * Continue home medications (Advair to replace Symbicort) * O2 via nasal cannula prn * CXR: mild venous congestion, mild patchy increased markings at left lung base , tortuous aorta, mild cardiomegaly. CHF Assessment and Plan: * Continue home medications * CXR: mild venous congestion, mild patchy increased markings at left lung base , tortuous aorta, mild cardiomegaly. * Repeat CXR in AM: showed some increase in congestion. Fluids discontinued. * ECHO (08/2013) LV systolic function moderately impaired, EF 30-35%, abnormal LV diastolic dysfunction. HTN (hypertension) Assessment and Plan: * Continue home medications Hyperlipemia Assessment and Plan: * Continue home medications Diabetes Mellitus Assessment and Plan: * Home medications: Metformin 500mg PO daily * A1c: 6.8% * ISS * Hypoglycemia protocol * Monitor blood glucose, accuchecks Prophylactic measure Assessment and Plan: * Heparin 5000 SC Q8h, SCDs * Protonix 40mg PO daily <Wei Cunningham H - Last Filed: 04/04/17 18:01> Objective - Vital Signs/Intake and Output Vital Signs (last 24 hours): Temp Pulse Resp BP Pulse Ox 98.0 F 81 20 109/71 96 04/04/17 16:26 04/04/17 16:26 04/04/17 16:26 04/04/17 17:40 04/04/17 16:26 Intake and Output: 04/04/17 04/04/17 06:59 18:59 Intake Total 560 Balance 560 - Medications Medications: Current Medications Albuterol (Ventolin Hfa 90 Mcg/Actuation (8 G)) 2 puff IH RQ6 PRN PRN Reason: Shortness of Breath Last Admin: 04/04/17 08:19 Dose: 2 puff Aspirin (Ecotrin) 81 mg PO DAILY [facility] Last Admin: 04/04/17 12:50 Dose: 81 mg Brimonidine Tartrate (Alphagan 0.2% Opht) 0 ml OD Q12H [facility] Last Admin: 04/04/17 06:37 Dose: 1 drop Carvedilol (Coreg) 25 mg PO Q12H [facility] Last Admin: 04/04/17 07:04 Dose: 25 mg Furosemide (Lasix) 40 mg PO BID [facility] Last Admin: 04/04/17 17:40 Dose: 40 mg Heparin Sodium (Porcine) (Heparin) 5,000 units SC Q12 [facility] Last Admin: 04/04/17 12:50 Dose: 5,000 units Hydrochlorothiazide (Microzide) 12.5 mg PO DAILY [facility] Last Admin: 04/04/17 12:50 Dose: 12.5 mg Ciprofloxacin (Cipro 400mg/200ml Dsw) 400 mg in 200 mls @ 133 mls/hr IVPB Q12H [facility] Last Admin: 04/04/17 15:03 Dose: 133 mls/hr Metronidazole (Flagyl) 500 mg in 100 mls @ 100 mls/hr IVPB Q8 [facility] Last Admin: 04/04/17 13:54 Dose: 100 mls/hr Insulin Human Regular (Novolin R) 0 unit SC ACHS [facility] PRN Reason: Protocol Last Admin: 04/04/17 12:57 Dose: Not Given Levothyroxine Sodium (Synthroid) 25 mcg PO DAILY@0630 [facility] Last Admin: 04/04/17 06:36 Dose: 25 mcg Losartan Potassium (Cozaar) 100 mg PO DAILY [facility] Last Admin: 04/04/17 12:50 Dose: 100 mg Pantoprazole Sodium (Protonix Ec Tab) 40 mg PO DAILY [facility] Last Admin: 04/04/17 12:50 Dose: 40 mg Rosuvastatin Calcium (Crestor) 2.5 mg PO HS [facility] Last Admin: 04/03/17 21:06 Dose: 2.5 mg Fluticasone/Salmeterol (Advair Diskus 250/50) 1 puff IH RQ12 [facility] Last Admin: 04/04/17 08:19 Dose: 1 puff Spironolactone (Aldactone) 25 mg PO DAILY [facility] Last Admin: 04/04/17 12:50 Dose: 25 mg Timolol Maleate (Timoptic 0.5% Ophth Soln) 0 drop OU Q12H [facility] Last Admin: 04/04/17 06:37 Dose: 1 drop - Labs Labs: 04/04/17 07:13 04/04/17 07:13 PT 13.5 SECONDS (9.7-12.2) H 04/02/17 15:31 INR 1.2 04/02/17 15:31 APTT 27 SECONDS (21-34) 04/02/17 15:31 Attending/Attestation - Attestation I have personally seen and examined this patient.: Yes I have fully participated in the care of the patient.: Yes I have reviewed all pertinent clinical information, including history, physical exam and plan: Yes Notes (Text): 04/04/17 18:01 Medical attending: Patient was seen and examined by me, agree the above note by regional medical director. At this time we are pending Hemngioma scan studies to be done. Patient reports still having the diarrhea as of this morning when we saw him. The stool O+P, WBC were negative. We are pending autoimmune studies to return at this moment. Thank you very much, Wei Cunningham
--- NOTE | 2017-04-04 10:39 | CP.PCM.DIS ---
Provider - Provider Date of Admission: 04/02/17 10:48 Attending physician: Wei Cunningham DO Hospital Course - Lab Results Lab Results: Micro Results 04/02/17 11:10 Blood-Venous Blood Culture - Preliminary NO GROWTH AFTER 24 HOURS 04/02/17 10:30 Blood-Venous Blood Culture - Preliminary NO GROWTH AFTER 24 HOURS Most Recent Lab Values WBC 9.3 K/uL (4.8-10.8) 04/04/17 07:13 RBC 4.36 Mil/uL (4.40-5.90) L 04/04/17 07:13 Hgb 13.1 g/dL (12.0-18.0) 04/04/17 07:13 Hct 38.5 % (35.0-51.0) 04/04/17 07:13 MCV 88.4 fL (80.0-94.0) 04/04/17 07:13 MCH 30.1 pg (27.0-31.0) 04/04/17 07:13 MCHC 34.0 g/dL (33.0-37.0) 04/04/17 07:13 RDW 15.3 % (11.5-14.5) H 04/04/17 07:13 Plt Count 229 K/uL (130-400) 04/04/17 07:13 MPV 8.5 fL (7.2-11.7) 04/04/17 07:13 Neut % (Auto) 72.1 % (50.0-75.0) 04/04/17 07:13 Lymph % (Auto) 14.2 % (20.0-40.0) L 04/04/17 07:13 [place] % (Auto) 12.4 % (0.0-10.0) H 04/04/17 07:13 Eos % (Auto) 1.0 % (0.0-4.0) 04/04/17 07:13 Baso % (Auto) 0.3 % (0.0-2.0) 04/04/17 07:13 Neut # (Auto) 6.7 K/uL (1.8-7.0) 04/04/17 07:13 Lymph # (Auto) 1.3 K/uL (1.0-4.3) 04/04/17 07:13 [place] # (Auto) 1.2 K/uL (0.0-0.8) H 04/04/17 07:13 Eos # (Auto) 0.1 K/uL (0.0-0.7) 04/04/17 07:13 Baso # (Auto) 0.0 K/uL (0.0-0.2) 04/04/17 07:13 Neutrophils % (Manual) 77 % (50-75) H 04/02/17 08:32 Band Neutrophils % 3 % (0-2) H 04/02/17 08:32 Lymphocytes % (Manual) 7 % (20-40) L 04/02/17 08:32 Reactive Lymphs % 2 % (0-0) H 04/02/17 08:32 Monocytes % (Manual) 11 % (0-10) H 04/02/17 08:32 Platelet Estimate Normal (NORMAL) 04/02/17 08:32 RBC Morphology Normal 04/02/17 08:32 ESR 46 mm/hr (0-15) H 04/02/17 15:31 PT 13.5 SECONDS (9.7-12.2) H 04/02/17 15:31 INR 1.2 04/02/17 15:31 APTT 27 SECONDS (21-34) 04/02/17 15:31 Sodium 135 mmol/L (132-148) 04/04/17 07:13 Potassium 4.0 mmol/L (3.6-5.2) 04/04/17 07:13 Chloride 98 mmol/L (98-107) 04/04/17 07:13 Carbon Dioxide 26 mmol/L (22-30) 04/04/17 07:13 Anion Gap 15 (10-20) 04/04/17 07:13 BUN 23 mg/dL (9-20) H 04/04/17 07:13 Creatinine 1.0 mg/dL (0.8-1.5) 04/04/17 07:13 Est GFR ( Amer) > 60 04/04/17 07:13 Est GFR (Non-Af Amer) > 60 04/04/17 07:13 POC Glucose (mg/dL) 133 mg/dL (65-110) H 04/04/17 06:08 Random Glucose 125 mg/dL (75-110) H 04/04/17 07:13 Hemoglobin A1c 6.8 % (4.2-6.5) H 04/02/17 16:23 Calcium 8.9 mg/dl (8.6-10.4) 04/04/17 07:13 Total Bilirubin 0.4 mg/dL (0.2-1.3) 04/04/17 07:13 GGT 48 U/L (8-78) 04/02/17 15:31 AST 26 U/L (17-59) 04/04/17 07:13 ALT 37 U/L (21-72) 04/04/17 07:13 Alkaline Phosphatase 55 U/L (38-126) 04/04/17 07:13 C-React Prot High Sens > 15.00 mg/L (1.00-3.00) H 04/02/17 15:31 NT-Pro-B Natriuret Pep 212 pg/mL (0-450) 04/02/17 08:32 Total Protein 7.8 g/dL (6.3-8.3) 04/04/17 07:13 Albumin 4.1 g/dL (3.5-5.0) 04/04/17 07:13 Globulin 3.7 gm/dL (2.2-3.9) 04/04/17 07:13 Albumin/Globulin Ratio 1.1 (1.0-2.1) 04/04/17 07:13 Alpha Fetoprotein 1.6 ng/mL (0.0-7.5) 04/02/17 15:31 Urine Color Straw (YELLOW) 04/02/17 08:36 Urine Clarity Clear (Clear) 04/02/17 08:36 Urine pH 5.0 (5.0-8.0) 04/02/17 08:36 Ur Specific [place] 1.009 (1.003-1.030) 04/02/17 08:36 Urine Protein Negative mg/dL (NEGATIVE) 04/02/17 08:36 Urine Glucose (UA) Normal mg/dL (Normal) 04/02/17 08:36 Urine Ketones Negative mg/dL (NEGATIVE) 04/02/17 08:36 Urine Blood 1+ (NEGATIVE) H 04/02/17 08:36 Urine Nitrate Negative (NEGATIVE) 04/02/17 08:36 Urine Bilirubin Negative (NEGATIVE) 04/02/17 08:36 Urine Urobilinogen Normal mg/dL (0.2-1.0) 04/02/17 08:36 Ur Leukocyte Esterase Neg Sher/uL (Negative) 04/02/17 08:36 Urine WBC (Auto) < 1 /hpf (0-5) 04/02/17 08:36 Urine RBC (Auto) 2 /hpf (0-3) 04/02/17 08:36 Stool Occult Blood Negative (NEGATIVE) 04/03/17 13:25 Stool Leukocytes, Qual Negative (NEGATIVE) 04/03/17 16:50 KORTNEY 6 Profile Positive (NEGATIVE) H 04/02/17 17:22 KORTNEY Titer 1:40 H 04/02/17 17:22 KORTNEY Pattern Nucleolar H 04/02/17 17:22 C. difficile Ag & Toxin Negative (NEGATIVE) 04/02/17 16:50 Hepatitis A IgM Ab Negative (NEGATIVE) 04/02/17 17:22 Hep Bs Antigen Negative (NEGATIVE) 04/02/17 17:22 Hep B Core IgM Ab Negative (NEGATIVE) 04/02/17 17:22 Hepatitis C Antibody Negative (NEGATIVE) 04/02/17 17:22 HIV 1&2 Antibody Screen Negative (NEGATIVE) 04/02/17 15:31 Influenza Typ A,B (EIA) Negative for flu a/b (NEGATIVE) 04/02/17 09:53 Discharge Exam - Head Exam Head Exam: ATRAUMATIC, NORMAL INSPECTION, NORMOCEPHALIC Discharge Plan - Follow Up Plan Condition: STABLE Disposition: HOME/ ROUTINE
[2017-04-04] MEDS: Pantoprazole 40 mg EC Tab PO SCH (12:50)
[2017-04-04] MEDS: Rosuvastatin Calcium 2.5 mg Tab PO SCH (21:25)
[2017-04-05] MEDS: Ciprofloxacin 400mg/200ml D5W 400 MG/200 ML BAG IVPB SCH ×2 (04:06→14:45)
[2017-04-05] MEDS: metroNIDAZOLE IV 500 mg/100 ml 500 MG/100 ML BAG IVPB SCH ×2 (05:23→13:26)
[2017-04-05] MEDS: Levothyroxine 25 MCG TAB PO SCH (06:39)
[2017-04-05] MEDS: Brimonidine 0.2% Opth Sol (5ml) OD SCH (06:40)
[2017-04-05] MEDS: (Novolin R) Insulin Human Regular 100 units/ml vial SC SCH (07:51)
[2017-04-05] MEDS: Albuterol HFA 90 mcg/actuation (8 g) IH PRN (08:05)
[2017-04-05] MEDS: Fluticasone-Salmeterol 250-50mcg Diskus IH SCH (08:05)
[2017-04-05 08:14] LABS: BASO % 0.2 % (0.0-2.0); EOS # 0.1 K/uL (0.0-0.7); EOS % 0.9 % (0.0-4.0); LYMPH # 1.3 K/uL (1.0-4.3); MEAN CELL VOLUME 89.2 fL (80.0-94.0); MEAN CORPUSCULAR HEMOGLOBIN 30.2 pg (27.0-31.0); MEAN CORPUSCULAR HGB CONC 33.8 g/dL (33.0-37.0); MEAN PLATELET VOLUME 8.3 fL (7.2-11.7); MONO # 1.1 K/uL (0.0-0.8); MONO % 12.6 % (0.0-10.0); NEUT # 6.1 K/uL (1.8-7.0); NEUT % 71.3 % (50.0-75.0); NRBC % 0.1 % (0.0-2.0); RBC 4.3 Mil/uL (4.40-5.90); RED CELL DISTRIBUTION WIDTH 15.7 % (11.5-14.5); WHITE BLOOD COUNT 8.6 K/uL (4.8-10.8)
[2017-04-05 08:33] LABS: ALB/GLOB RATIO 1.1 (1.0-2.1); ALBUMIN 3.8 g/dL (3.5-5.0); ALT/SGPT 47 U/L (21-72); AST/SGOT 30 U/L (17-59); BLOOD UREA NITROGEN 19 mg/dL (9-20); CALCIUM 8.8 mg/dl (8.6-10.4); GFR AFRICAN-AMERICAN > 60; GFR NON-AFRICAN AMERICAN > 60
[2017-04-05] MEDS: Pantoprazole 40 mg EC Tab PO SCH (09:38)
[2017-04-05] MEDS ORDERED: Pneumococcal 23-Valent Vaccine IM ONE (10:00)
--- NOTE | 2017-04-05 11:06 | CP.PCM.PN ---
Subjective - Date & Time of Evaluation Date of Evaluation: 04/05/17 Objective - Vital Signs/Intake and Output Vital Signs (last 24 hours): Temp Pulse Resp BP Pulse Ox 97.4 F L 80 16 103/72 97 04/05/17 09:30 18 09:30 18 09:30 04/05/17 09:38 04/05/17 09:30 - Medications Medications: Current Medications Albuterol (Ventolin Hfa 90 Mcg/Actuation (8 G)) 2 puff IH RQ6 PRN PRN Reason: Shortness of Breath Last Admin: 04/05/17 08:05 Dose: 2 puff Aspirin (Ecotrin) 81 mg PO DAILY [facility] Last Admin: 04/05/17 09:38 Dose: 81 mg Brimonidine Tartrate (Alphagan 0.2% Opht) 0 ml OD Q12H [facility] Last Admin: 04/05/17 06:40 Dose: 1 drop Carvedilol (Coreg) 25 mg PO Q12H [facility] Last Admin: 04/05/17 06:40 Dose: 25 mg Furosemide (Lasix) 40 mg PO BID [facility] Last Admin: 04/05/17 09:38 Dose: 40 mg Heparin Sodium (Porcine) (Heparin) 5,000 units SC Q12 [facility] Last Admin: 04/05/17 09:39 Dose: 5,000 units Hydrochlorothiazide (Microzide) 12.5 mg PO DAILY [facility] Last Admin: 04/05/17 09:38 Dose: 12.5 mg Ciprofloxacin (Cipro 400mg/200ml Dsw) 400 mg in 200 mls @ 133 mls/hr IVPB Q12H [facility] Last Admin: 04/05/17 04:06 Dose: 133 mls/hr Metronidazole (Flagyl) 500 mg in 100 mls @ 100 mls/hr IVPB Q8 [facility] Last Admin: 04/05/17 05:23 Dose: 100 mls/hr Insulin Human Regular (Novolin R) 0 unit SC ACHS [facility] PRN Reason: Protocol Last Admin: 04/05/17 07:51 Dose: Not Given Levothyroxine Sodium (Synthroid) 25 mcg PO DAILY@0630 [facility] Last Admin: 04/05/17 06:39 Dose: 25 mcg Losartan Potassium (Cozaar) 100 mg PO DAILY [facility] Last Admin: 04/05/17 09:39 Dose: 100 mg Pantoprazole Sodium (Protonix Ec Tab) 40 mg PO DAILY [facility] Last Admin: 04/05/17 09:38 Dose: 40 mg Rosuvastatin Calcium (Crestor) 2.5 mg PO HS [facility] Last Admin: 04/04/17 21:25 Dose: 2.5 mg Fluticasone/Salmeterol (Advair Diskus 250/50) 1 puff IH RQ12 [facility] Last Admin: 04/05/17 08:05 Dose: 1 puff Spironolactone (Aldactone) 25 mg PO DAILY [facility] Last Admin: 04/05/17 09:38 Dose: 25 mg Timolol Maleate (Timoptic 0.5% Oph Soln) 0 drop OU Q12H [facility] Last Admin: 04/05/17 06:40 Dose: 1 drop - Labs Labs: 04/05/17 07:41 04/05/17 07:42 PT 13.5 SECONDS (9.7-12.2) H 04/02/17 15:31 INR 1.2 04/02/17 15:31 APTT 27 SECONDS (21-34) 04/02/17 15:31 Assessment and Plan - Assessment and Plan (Free Text) Assessment: Abdominal pain/Diarrhea Assessment and Plan: * R/O diverticulitis vs. colitis vs. immune etiology * ESR: elevated 40 * CRP: f/u results * KORTNEY: Positive, nucleolar pattern * AFP: f/u results * GGT: f/u results * Hepatitis panel: negative * HIV: negative * C.diff: negative * Stool occult:negative * Stool leukocytes: negative * Anti-nucelolar positive * anti-torres, dna, SCL-70: F/U with results * Stool ova and parasites: negative * Continue Cipro 400mg IV Q12h, Flagyl 500mg IV Q8hr * Discontinue IV fluids @40mls; * GI consulted. Hemangioma scan ordered. Will f/u with results. Asthma Assessment and Plan: * Continue home medications (Advair to replace Symbicort) * O2 via nasal cannula prn * CXR: mild venous congestion, mild patchy increased markings at left lung base , tortuous aorta, mild cardiomegaly. CHF Assessment and Plan: * Continue home medications * CXR: mild venous congestion, mild patchy increased markings at left lung base , tortuous aorta, mild cardiomegaly. * Repeat CXR in AM: showed some increase in congestion. Fluids discontinued. * ECHO (08/2013) LV systolic function moderately impaired, EF 30-35%, abnormal LV diastolic dysfunction. HTN (hypertension) Assessment and Plan: * Continue home medications Hyperlipemia Assessment and Plan: * Continue home medications Diabetes Mellitus Assessment and Plan: * Home medications: Metformin 500mg PO daily * A1c: 6.8% * ISS * Hypoglycemia protocol * Monitor blood glucose, accuchecks Prophylactic measure Assessment and Plan: * Heparin 5000 SC Q8h, SCDs * Protonix 40mg PO daily
--- NOTE | 2017-04-05 13:33 | CP.PCM.PN ---
Subjective - Date & Time of Evaluation Date of Evaluation: 04/05/17 Time of Evaluation: 13:30 - Subjective Subjective: Nuclear Imaging confirms the liver lesions are indeed Hemangiomas No further workup required. Patient made aware. Re-consult as needed Objective - Vital Signs/Intake and Output Vital Signs (last 24 hours): Temp Pulse Resp BP Pulse Ox 97.4 F L 80 16 103/72 97 04/05/17 09:30 04/05/17 09:30 04/05/17 09:30 04/05/17 09:38 04/05/17 09:30 - Medications Medications: Current Medications Albuterol (Ventolin Hfa 90 Mcg/Actuation (8 G)) 2 puff IH RQ6 PRN PRN Reason: Shortness of Breath Last Admin: 04/05/17 08:05 Dose: 2 puff Aspirin (Ecotrin) 81 mg PO DAILY [facility] Last Admin: 04/05/17 09:38 Dose: 81 mg Brimonidine Tartrate (Alphagan 0.2% Opht) 0 ml OD Q12H [facility] Last Admin: 04/05/17 06:40 Dose: 1 drop Carvedilol (Coreg) 25 mg PO Q12H [facility] Last Admin: 04/05/17 06:40 Dose: 25 mg Furosemide (Lasix) 40 mg PO BID [facility] Last Admin: 04/05/17 09:38 Dose: 40 mg Heparin Sodium (Porcine) (Heparin) 5,000 units SC Q12 [facility] Last Admin: 04/05/17 09:39 Dose: 5,000 units Hydrochlorothiazide (Microzide) 12.5 mg PO DAILY [facility] Last Admin: 04/05/17 09:38 Dose: 12.5 mg Ciprofloxacin (Cipro 400mg/200ml Dsw) 400 mg in 200 mls @ 133 mls/hr IVPB Q12H [facility] Last Admin: 04/05/17 04:06 Dose: 133 mls/hr Metronidazole (Flagyl) 500 mg in 100 mls @ 100 mls/hr IVPB Q8 [facility] Last Admin: 04/05/17 13:26 Dose: 100 mls/hr Insulin Human Regular (Novolin R) 0 unit SC ACHS [facility] PRN Reason: Protocol Last Admin: 04/05/17 07:51 Dose: Not Given Levothyroxine Sodium (Synthroid) 25 mcg PO DAILY@0630 [facility] Last Admin: 04/05/17 06:39 Dose: 25 mcg Losartan Potassium (Cozaar) 100 mg PO DAILY [facility] Last Admin: 04/05/17 09:39 Dose: 100 mg Pantoprazole Sodium (Protonix Ec Tab) 40 mg PO DAILY [facility] Last Admin: 04/05/17 09:38 Dose: 40 mg Rosuvastatin Calcium (Crestor) 2.5 mg PO HS [facility] Last Admin: 04/04/17 21:25 Dose: 2.5 mg Fluticasone/Salmeterol (Advair Diskus 250/50) 1 puff IH RQ12 [facility] Last Admin: 04/05/17 08:05 Dose: 1 puff Spironolactone (Aldactone) 25 mg PO DAILY [facility] Last Admin: 04/05/17 09:38 Dose: 25 mg Timolol Maleate (Timoptic 0.5% Oph Soln) 0 drop OU Q12H [facility] Last Admin: 04/05/17 06:40 Dose: 1 drop - Labs Labs: 04/05/17 07:41 04/05/17 07:42 PT 13.5 SECONDS (9.7-12.2) H 04/02/17 15:31 INR 1.2 04/02/17 15:31 APTT 27 SECONDS (21-34) 04/02/17 15:31 - Constitutional Appears: Chronically Ill - Respiratory Exam Respiratory Exam: NORMAL BREATHING PATTERN - Cardiovascular Exam Cardiovascular Exam: REGULAR RHYTHM - GI/Abdominal Exam GI & Abdominal Exam: Soft. absent: Tenderness Assessment and Plan (1) Liver masses Assessment & Plan: Hemangiomas No intervention needed. reconsult GI if needed Status: Acute (2) Abdominal pain Assessment & Plan: Chronic IBS treat symptomatically Status: Acute
[2017-04-05 17:14] VITALS: BP 114/66; PULSE 89; RESP 20; TEMP 97.5; O2SAT 95
--- NOTE | 2017-04-05 18:58 | CP.PCM.DIS ---
<Rigo Faulkner - Last Filed: 04/06/17 16:55> Provider - Provider Date of Admission: 04/04/17 15:17 Attending physician: Wei Cunningham DO Primary care physician: Dr. Malinda Woods Consults: Retail Pharmacist: Dr. Gorge Mcghee Time Spent in preparation of Discharge (in minutes): 55 Diagnosis - Discharge Diagnosis (1) Abdominal pain Status: Acute (2) Diarrhea Status: Acute (3) Lupus Status: Acute (4) Asthma Status: Chronic (5) Diabetes mellitus Status: Chronic (6) HTN (hypertension) Status: Chronic (7) Hyperlipemia Status: Chronic Hospital Course - Lab Results Lab Results: Micro Results 04/03/17 16:50 Stool Stool Culture - Final NO SALMONELLA, SHIGELLA OR CAMPYLOBACTER ISOLATED. 04/02/17 11:10 Blood-Venous Blood Culture - Preliminary NO GROWTH AFTER 3 DAYS 04/02/17 10:30 Blood-Venous Blood Culture - Preliminary NO GROWTH AFTER 3 DAYS 04/03/17 16:50 Stool Ova and Parasite Concentrate Exam - Final Most Recent Lab Values WBC 8.6 K/uL (4.8-10.8) 04/05/17 07:41 RBC 4.30 Mil/uL (4.40-5.90) L 04/05/17 07:41 Hgb 13.0 g/dL (12.0-18.0) 04/05/17 07:41 Hct 38.4 % (35.0-51.0) 04/05/17 07:41 MCV 89.2 fL (80.0-94.0) 04/05/17 07:41 MCH 30.2 pg (27.0-31.0) 04/05/17 07:41 MCHC 33.8 g/dL (33.0-37.0) 04/05/17 07:41 RDW 15.7 % (11.5-14.5) H 04/05/17 07:41 Plt Count 210 K/uL (130-400) 04/05/17 07:41 MPV 8.3 fL (7.2-11.7) 04/05/17 07:41 Neut % (Auto) 71.3 % (50.0-75.0) 04/05/17 07:41 Lymph % (Auto) 15.0 % (20.0-40.0) L 04/05/17 07:41 [place] % (Auto) 12.6 % (0.0-10.0) H 04/05/17 07:41 Eos % (Auto) 0.9 % (0.0-4.0) 04/05/17 07:41 Baso % (Auto) 0.2 % (0.0-2.0) 04/05/17 07:41 Neut # (Auto) 6.1 K/uL (1.8-7.0) 04/05/17 07:41 Lymph # (Auto) 1.3 K/uL (1.0-4.3) 04/05/17 07:41 [place] # (Auto) 1.1 K/uL (0.0-0.8) H 04/05/17 07:41 Eos # (Auto) 0.1 K/uL (0.0-0.7) 04/05/17 07:41 Baso # (Auto) 0.0 K/uL (0.0-0.2) 04/05/17 07:41 Neutrophils % (Manual) 77 % (50-75) H 04/02/17 08:32 Band Neutrophils % 3 % (0-2) H 04/02/17 08:32 Lymphocytes % (Manual) 7 % (20-40) L 04/02/17 08:32 Reactive Lymphs % 2 % (0-0) H 04/02/17 08:32 Monocytes % (Manual) 11 % (0-10) H 04/02/17 08:32 Platelet Estimate Normal (NORMAL) 04/02/17 08:32 RBC Morphology Normal 04/02/17 08:32 ESR 46 mm/hr (0-15) H 04/02/17 15:31 PT 13.5 SECONDS (9.7-12.2) H 04/02/17 15:31 INR 1.2 04/02/17 15:31 APTT 27 SECONDS (21-34) 04/02/17 15:31 Sodium 137 mmol/L (132-148) 04/05/17 07:42 Potassium 4.2 mmol/L (3.6-5.2) 04/05/17 07:42 Chloride 99 mmol/L (98-107) 04/05/17 07:42 Carbon Dioxide 27 mmol/L (22-30) 04/05/17 07:42 Anion Gap 15 (10-20) 04/05/17 07:42 BUN 19 mg/dL (9-20) 04/05/17 07:42 Creatinine 1.1 mg/dL (0.8-1.5) 04/05/17 07:42 Est GFR ( Amer) > 60 04/05/17 07:42 Est GFR (Non-Af Amer) > 60 04/05/17 07:42 POC Glucose (mg/dL) 119 mg/dL (65-110) H 04/05/17 16:56 Random Glucose 125 mg/dL (75-110) H 04/05/17 07:42 Hemoglobin A1c 6.8 % (4.2-6.5) H 04/02/17 16:23 Calcium 8.8 mg/dl (8.6-10.4) 04/05/17 07:42 Total Bilirubin 0.5 mg/dL (0.2-1.3) 04/05/17 07:42 GGT 48 U/L (8-78) 04/02/17 15:31 AST 30 U/L (17-59) 04/05/17 07:42 ALT 47 U/L (21-72) 04/05/17 07:42 Alkaline Phosphatase 48 U/L (38-126) 04/05/17 07:42 C-React Prot High Sens > 15.00 mg/L (1.00-3.00) H 04/02/17 15:31 NT-Pro-B Natriuret Pep 212 pg/mL (0-450) 04/02/17 08:32 Total Protein 7.2 g/dL (6.3-8.3) 04/05/17 07:42 Albumin 3.8 g/dL (3.5-5.0) 04/05/17 07:42 Globulin 3.4 gm/dL (2.2-3.9) 04/05/17 07:42 Albumin/Globulin Ratio 1.1 (1.0-2.1) 04/05/17 07:42 Alpha Fetoprotein 1.4 ng/mL (0.0-7.5) 04/05/17 07:42 Urine Color Straw (YELLOW) 04/02/17 08:36 Urine Clarity Clear (Clear) 04/02/17 08:36 Urine pH 5.0 (5.0-8.0) 04/02/17 08:36 Ur Specific [place] 1.009 (1.003-1.030) 04/02/17 08:36 Urine Protein Negative mg/dL (NEGATIVE) 04/02/17 08:36 Urine Glucose (UA) Normal mg/dL (Normal) 04/02/17 08:36 Urine Ketones Negative mg/dL (NEGATIVE) 04/02/17 08:36 Urine Blood 1+ (NEGATIVE) H 04/02/17 08:36 Urine Nitrate Negative (NEGATIVE) 04/02/17 08:36 Urine Bilirubin Negative (NEGATIVE) 04/02/17 08:36 Urine Urobilinogen Normal mg/dL (0.2-1.0) 04/02/17 08:36 Ur Leukocyte Esterase Neg Sher/uL (Negative) 04/02/17 08:36 Urine WBC (Auto) < 1 /hpf (0-5) 04/02/17 08:36 Urine RBC (Auto) 2 /hpf (0-3) 04/02/17 08:36 Stool Occult Blood Negative (NEGATIVE) 04/03/17 13:25 Stool Leukocytes, Qual Negative (NEGATIVE) 04/03/17 16:50 KORTNEY 6 Profile Positive (NEGATIVE) H 04/02/17 17:22 KORTNEY Titer 1:40 H 04/02/17 17:22 KORTNEY Pattern Nucleolar H 04/02/17 17:22 Double Strand DNA Ab 277 IU/mL H 04/03/17 13:37 C. difficile Ag & Toxin Negative (NEGATIVE) 04/02/17 16:50 Hepatitis A IgM Ab Negative (NEGATIVE) 04/02/17 17:22 Hep Bs Antigen Negative (NEGATIVE) 04/02/17 17:22 Hep B Core IgM Ab Negative (NEGATIVE) 04/02/17 17:22 Hepatitis C Antibody Negative (NEGATIVE) 04/02/17 17:22 HIV 1&2 Antibody Screen Negative (NEGATIVE) 04/02/17 15:31 Influenza Typ A,B (EIA) Negative for flu a/b (NEGATIVE) 04/02/17 09:53 - Hospital Course Hospital Course: On admission: HPI: Patient is a 47 year old male with past medical history of asthma, COPD, CHF, HTN, HLD, DM, hypothyroidism, diverticulosis, who presents to the ED with complaints of watery diarrhea and lower abdominal pain that started the previous night. Patient reports having approximately 6 episodes of diarrhea over night, and continues to have diarrhea in the ED. He denies blood in stool. Patient admits to lower abdominal pain that is diffuse and described as feeling inflamed and bloated. Patient reports having similar episodes in the past, last episode was 2 months ago. Patient also complains of shortness of breath and cough associated with his history of asthma. Patient denies chest pain, nausea, vomiting, fevers, headache, recent sick contacts, recent travel. Hospital Course: Patient with extensive past medical history including bipolar, schizophrenia and paranoia. Patient had stool studies collected to rule out C. diff. Patient was to have CT imaging but initially refused because he did not quite understand what would be going on. Afterward, patient was agreeable. CT results showed liver lesions for which GI was consulted. Further workup showed that the lesions were in fact hemangiomas. Patient was placed on antibiotics for suspected diverticulitis ; findings which were ruled out with CT imaging. Patient's diarrhea improved with low IVF and slow advancement of diet. Fluids were given slowly and discontinued within a short period of time due of history of CHF. Patient expressed concerns over new facial discoloration. Consequently, autoimmune studies were obtained. Findings confirmed Lupus. Presentation and management were discussed at great length with patient. Refer to medical record for full results. Upon discharge, it was recommended that patient begin steroids in light of the findings of lupus. Patient declined at this time, because he was concerned of adverse side effects. Patient counseled at length about the benefits vs risks; however patient still declined at this time. Discharge Plan Patient is medically stable for discharge home. Patient to follow up with primary medical doctor (Dr. Woods) within one week from discharge. Patient should call [phone] to make an appointment. Patient ideally would benefit from steroid therapy, but has refused at this time. In light of this, it is important that patient discusses his reason for not taking the steroids with his primary medical doctor. Patient will be given new prescription for antibiotics Flagyl and Ciprofloxacin upon discharge. He should take as indicated. Patient should eat a probiotic yogurt for the duration of his antibiotics. He should not take the yogurt within two hours of taking the antibiotics. If symptoms return, go to the emergency room. Instructions explained to patient who is aware. This is a brief summary of events. For a complete course refer to the hospital record. Discharge Exam - Head Exam Head Exam: ATRAUMATIC Additional comments: hyperpigmented facial rash - Eye Exam Eye Exam: EOMI - ENT Exam ENT Exam: Mucous Membranes Moist - Neck Exam Neck exam: Full Rom - Respiratory Exam Respiratory Exam: NORMAL BREATHING PATTERN - Cardiovascular Exam Cardiovascular Exam: +S1, +S2 - GI/Abdominal Exam GI & Abdominal Exam: Normal Bowel Sounds, Soft - Extremities Exam Extremities exam: full ROM - Back Exam Back exam: FULL ROM - Neurological Exam Neurological exam: Alert, Normal Gait, Oriented x3 - Psychiatric Exam Psychiatric exam: Anxious, Normal Affect - Skin Skin Exam: Dry, Warm Discharge Plan - Discharge Medications Prescriptions: Ciprofloxacin HCl [Cipro] 500 mg PO BID #28 tablet Metronidazole [Flagyl] 500 mg PO Q8H #42 tablet - Follow Up Plan Condition: IMPROVED Disposition: HOME/ ROUTINE Instructions: Ciprofloxacin (By mouth), Metronidazole (By mouth), Lupus Erythematosus (DC), Diabetes Mellitus Type 2 in Adults (DC) Additional Instructions: Patient is medically stable for discharge home. Patient to follow up with primary medical doctor (Dr. Woods) within one week from discharge. Patient should call [phone] to make an appointment. Patient ideally would benefit from steroid therapy, but has refused at this time. In light of this, it is important that patient discusses his reason for not taking the steroids with his primary medical doctor. Patient will be given new prescription for antibiotics Flagyl and Ciprofloxacin upon discharge. He should take as indicated. Patient should eat a probiotic yogurt for the duration of his antibiotics. He should not take the yogurt within two hours of taking the antibiotics. If symptoms return, go to the emergency room. Instructions explained to patient who is aware. Referrals: Malinda Woods MD [Staff Provider] - Clinical Quality Measures - CQM - Heart Failure Ejection Fraction: Less Than 40 % Left Ventricular Function to be assessed after discharge: No MICAH Inhibitor Prescribed: No Contraindication/Reason for not providing: Patient is already on combination ARB/HCTZ Beta-Jason Prescribed: Carvedilol Angiotensin II Receptor Jason Prescribed: Yes AnticoagulationTherapy for Atrial Fibrillation/Atrialflutter: No Contraindication/Reason for not providing: Does not have either presentation Aldosterone Antagonist Prescribed: Yes Hydralazine Nitrate Prescribed: No Contraindication/Reason for not providing: N/A Implantable Cardioverter Defibrillator Therapy: No Contraindication/Reason for not providing: Will need further workup with [employer]. No current presentation. Cardiac Resynchronization Therapy Prescribed: No Contraindication/Reason for not providing: Will need further workup with [employer]. No current presentation. <Wei Cunningham - Last Filed: 04/06/17 17:56> Provider - Provider Date of Admission: 04/04/17 15:17 Attending physician: Wei Cunningham DO Hospital Course - Lab Results Lab Results: Micro Results 04/02/17 11:10 Blood-Venous Blood Culture - Preliminary NO GROWTH AFTER 4 DAYS 04/02/17 10:30 Blood-Venous Blood Culture - Preliminary NO GROWTH AFTER 4 DAYS 04/03/17 16:50 Stool Stool Culture - Final NO SALMONELLA, SHIGELLA OR CAMPYLOBACTER ISOLATED. 04/03/17 16:50 Stool Ova and Parasite Concentrate Exam - Final Most Recent Lab Values WBC 8.6 K/uL (4.8-10.8) 04/05/17 07:41 RBC 4.30 Mil/uL (4.40-5.90) L 04/05/17 07:41 Hgb 13.0 g/dL (12.0-18.0) 04/05/17 07:41 Hct 38.4 % (35.0-51.0) 04/05/17 07:41 MCV 89.2 fL (80.0-94.0) 04/05/17 07:41 MCH 30.2 pg (27.0-31.0) 04/05/17 07:41 MCHC 33.8 g/dL (33.0-37.0) 04/05/17 07:41 RDW 15.7 % (11.5-14.5) H 04/05/17 07:41 Plt Count 210 K/uL (130-400) 04/05/17 07:41 MPV 8.3 fL (7.2-11.7) 04/05/17 07:41 Neut % (Auto) 71.3 % (50.0-75.0) 04/05/17 07:41 Lymph % (Auto) 15.0 % (20.0-40.0) L 04/05/17 07:41 [place] % (Auto) 12.6 % (0.0-10.0) H 04/05/17 07:41 Eos % (Auto) 0.9 % (0.0-4.0) 04/05/17 07:41 Baso % (Auto) 0.2 % (0.0-2.0) 04/05/17 07:41 Neut # (Auto) 6.1 K/uL (1.8-7.0) 04/05/17 07:41 Lymph # (Auto) 1.3 K/uL (1.0-4.3) 04/05/17 07:41 [place] # (Auto) 1.1 K/uL (0.0-0.8) H 04/05/17 07:41 Eos # (Auto) 0.1 K/uL (0.0-0.7) 04/05/17 07:41 Baso # (Auto) 0.0 K/uL (0.0-0.2) 04/05/17 07:41 Neutrophils % (Manual) 77 % (50-75) H 04/02/17 08:32 Band Neutrophils % 3 % (0-2) H 04/02/17 08:32 Lymphocytes % (Manual) 7 % (20-40) L 04/02/17 08:32 Reactive Lymphs % 2 % (0-0) H 04/02/17 08:32 Monocytes % (Manual) 11 % (0-10) H 04/02/17 08:32 Platelet Estimate Normal (NORMAL) 04/02/17 08:32 RBC Morphology Normal 04/02/17 08:32 ESR 46 mm/hr (0-15) H 04/02/17 15:31 PT 13.5 SECONDS (9.7-12.2) H 04/02/17 15:31 INR 1.2 04/02/17 15:31 APTT 27 SECONDS (21-34) 04/02/17 15:31 Sodium 137 mmol/L (132-148) 04/05/17 07:42 Potassium 4.2 mmol/L (3.6-5.2) 04/05/17 07:42 Chloride 99 mmol/L (98-107) 04/05/17 07:42 Carbon Dioxide 27 mmol/L (22-30) 04/05/17 07:42 Anion Gap 15 (10-20) 04/05/17 07:42 BUN 19 mg/dL (9-20) 04/05/17 07:42 Creatinine 1.1 mg/dL (0.8-1.5) 04/05/17 07:42 Est GFR ( Amer) > 60 04/05/17 07:42 Est GFR (Non-Af Amer) > 60 04/05/17 07:42 POC Glucose (mg/dL) 119 mg/dL (65-110) H 04/05/17 16:56 Random Glucose 125 mg/dL (75-110) H 04/05/17 07:42 Hemoglobin A1c 6.8 % (4.2-6.5) H 04/02/17 16:23 Calcium 8.8 mg/dl (8.6-10.4) 04/05/17 07:42 Total Bilirubin 0.5 mg/dL (0.2-1.3) 04/05/17 07:42 GGT 48 U/L (8-78) 04/02/17 15:31 AST 30 U/L (17-59) 04/05/17 07:42 ALT 47 U/L (21-72) 04/05/17 07:42 Alkaline Phosphatase 48 U/L (38-126) 04/05/17 07:42 C-React Prot High Sens > 15.00 mg/L (1.00-3.00) H 04/02/17 15:31 NT-Pro-B Natriuret Pep 212 pg/mL (0-450) 04/02/17 08:32 Total Protein 7.2 g/dL (6.3-8.3) 04/05/17 07:42 Albumin 3.8 g/dL (3.5-5.0) 04/05/17 07:42 Globulin 3.4 gm/dL (2.2-3.9) 04/05/17 07:42 Albumin/Globulin Ratio 1.1 (1.0-2.1) 04/05/17 07:42 Alpha Fetoprotein 1.4 ng/mL (0.0-7.5) 04/05/17 07:42 Urine Color Straw (YELLOW) 04/02/17 08:36 Urine Clarity Clear (Clear) 04/02/17 08:36 Urine pH 5.0 (5.0-8.0) 04/02/17 08:36 Ur Specific [place] 1.009 (1.003-1.030) 04/02/17 08:36 Urine Protein Negative mg/dL (NEGATIVE) 04/02/17 08:36 Urine Glucose (UA) Normal mg/dL (Normal) 04/02/17 08:36 Urine Ketones Negative mg/dL (NEGATIVE) 04/02/17 08:36 Urine Blood 1+ (NEGATIVE) H 04/02/17 08:36 Urine Nitrate Negative (NEGATIVE) 04/02/17 08:36 Urine Bilirubin Negative (NEGATIVE) 04/02/17 08:36 Urine Urobilinogen Normal mg/dL (0.2-1.0) 04/02/17 08:36 Ur Leukocyte Esterase Neg Sher/uL (Negative) 04/02/17 08:36 Urine WBC (Auto) < 1 /hpf (0-5) 04/02/17 08:36 Urine RBC (Auto) 2 /hpf (0-3) 04/02/17 08:36 Stool Occult Blood Negative (NEGATIVE) 04/03/17 13:25 Stool Leukocytes, Qual Negative (NEGATIVE) 04/03/17 16:50 KORTNEY 6 Profile Positive (NEGATIVE) H 04/02/17 17:22 KORTNEY Titer 1:40 H 04/02/17 17:22 KORTNEY Pattern Nucleolar H 04/02/17 17:22 Double Strand DNA Ab 277 IU/mL H 04/03/17 13:37 C. difficile Ag & Toxin Negative (NEGATIVE) 04/02/17 16:50 Hepatitis A IgM Ab Negative (NEGATIVE) 04/02/17 17:22 Hep Bs Antigen Negative (NEGATIVE) 04/02/17 17:22 Hep B Core IgM Ab Negative (NEGATIVE) 04/02/17 17:22 Hepatitis C Antibody Negative (NEGATIVE) 04/02/17 17:22 HIV 1&2 Antibody Screen Negative (NEGATIVE) 04/02/17 15:31 Influenza Typ A,B (EIA) Negative for flu a/b (NEGATIVE) 04/02/17 09:53 Attending/Attestation - Attestation I have personally seen and examined this patient.: Yes I have fully participated in the care of the patient.: Yes I have reviewed all pertinent clinical information, including history, physical exam and plan: Yes Notes (Text): 04/06/17 17:56 Medical attending: Patient was seen and examined by me, patient was seen with the medical diagnostic radiographer. Agree with the above note by medical diagnostic radiographer. I greatly appreciate the help of GI coming to see the patient. As mentioned above the patient underwent a MRI of the liver and this confirmed that the patient has hemangiomas on the liver. As mentioned previously the patient has a lot of anxiety and stress issues. He has been very worried about his liver He also has a facial rash that is purple color. He also recently lost vision left eye as well Because of the ongoing abdominal pain, as well as these facial findings and his loss of vision in one eye we did check an KORTNEY as well as [id number] DNA and the KORTNEY was positive. He had a lupus pattern when he returned. We waited the next day until [id number] DNA returned at this was exceptionally high I explained to the patient that were very concerned that he would have lupus. I want to try him on a short course of oral prednisone however he did not want this. I explained to him that there are other medications as well such as Plaquenil however he said that he wanted to read more about these before starting. I emphasized to him the importance of following up in the clinic and he says that he understands. He had a lot of questions regarding this. And I explained to him that it could certainly a contributing to his facial recent facial Maller appearance rash on his face as well as be related to him having visual loss particularly in his left eye. He says he steadily can follow-up. He just doesn't feel comfortable starting any medication for lupus at this moment Thank you very much, Wei Cunningham
[2017-04-08 21:04] LABS: SCL-70 ANTIBODY <1.0 AI (<1.0)
== END 2017-04-05 18:17 | disposition home or self-care (01) | DRG 182 ==
LOC: C.ER 07:38 → C.9E 10:48 → C.5S 16:02 → OBSVTOIN 04-04 15:17
PROVIDERS: ADMIT Hospitalist; ATTEND Hospitalist
DX: K58.0 Irritable bowel syndrome with diarrhea (principal); J44.9 Chronic obstructive pulmonary disease, unspecified; I11.0 Hypertensive heart disease with heart failure; I50.9 Heart failure, unspecified; F20.0 Paranoid schizophrenia; E11.9 Type 2 diabetes mellitus without complications; L93.0 Discoid lupus erythematosus; D18.09 Hemangioma of other sites; K52.9 Noninfective gastroenteritis and colitis, unspecified; E86.0 Dehydration; E03.9 Hypothyroidism, unspecified; F32.9 Major depressive disorder, single episode, unspecified; H54.40 Blindness, one eye, unspecified eye

== ENCOUNTER 2017-04-24 07:32 | Observation (INO) | payer OTHER ==
[2017-04-24 07:32] VITALS: BMI 44.4
--- NOTE | 2017-04-24 08:16 | C.PDOC ---
History Of Present Illness 47-year-old male, PMHx includes Lupus, CHF, Diabetes, and COPD, presents to the emergency department with complaints of shortness of breath and chest pain x1 month that has been worsening over the past week. Pain starts in back and radiates to the front. States he is using inhaler at home with minimal relief. Denies cough, fever, nausea/vomiting, diarrhea, or any other associated symptoms. Patient notes he had a cardiac echo done outpatient and his EF is 30% Time Seen by Provider: 04/24/17 07:40 Chief Complaint (Nursing): Chest Pain History Per: Patient History/Exam Limitations: no limitations Past Medical History Reviewed: Historical Data, Nursing Documentation, Vital Signs Vital Signs: Last Vital Signs Temp 97.3 F L 04/24/17 07:40 Pulse 86 04/24/17 07:40 Resp 20 04/24/17 07:40 BP 131/84 04/24/17 07:40 Pulse Ox 99 04/24/17 08:18 - Medical History PMH: Asthma, Benign Prostatic Hyperplasia, Bronchitis, CHF, COPD, Depression, Diverticulitis, HTN, Hypercholesterolemia, Hyperlipidemia, Hypothyroidism, Kidney Stones (KIDNEY STENT 2007), Paranoia Denies: HIV, Seizures - [facility] Procedures CLOSED ENDOSCOPIC BIOPSY OF LARGE INTESTINE (11/18/12) DX ULTRASOUND-HEAD/NECK (08/20/12) ENDOSC POLYPECTOMY OF LG INTEST (11/18/12) INJECT/INFUSE NEC (09/15/13) NEBULIZER THERAPY (10/23/13) PERCUTAN NEEDLE BX OF THYROID GLAND (08/20/12) PHYSICAL THERAPY NEC (11/24/14) Family History: States: Diabetes, Hypertension - Social History Hx Tobacco Use: No Hx Alcohol Use: No Hx Substance Use: No - Immunization History Hx Tetanus Toxoid Vaccination: No Hx Influenza Vaccination: Yes Hx Pneumococcal Vaccination: No Review Of Systems Except As Marked, All Systems Reviewed And Found Negative. Constitutional: Positive for: Malaise. Negative for: Fever, Chills Cardiovascular: Positive for: Chest Pain. Negative for: Palpitations, Light Headedness Respiratory: Positive for: Shortness of Breath Gastrointestinal: Negative for: Nausea, Vomiting, Abdominal Pain Musculoskeletal: Positive for: Back Pain Skin: Negative for: Rash Neurological: Positive for: Dizziness. Negative for: Weakness, Numbness, Headache Physical Exam - Physical Exam Appears: Non-toxic, No Acute Distress Skin: Warm, Dry, Rash (malar) Head: Normacephalic Eye(s): left: Other (blind, chronic) Nose: Normal Oral Mucosa: Moist Lips: Normal Appearing Neck: Normal ROM, Trachea Midline, Supple Chest: Symmetrical Cardiovascular: Rhythm Regular, No Murmur Respiratory: Normal Breath Sounds, No Accessory Muscle Use Gastrointestinal/Abdominal: No Tenderness, Distention Extremity: Pedal Edema (1+ B/L lower extremities), No Deformity Neurological/Psych: Oriented x3, Normal Speech ED Course And Treatment ECG: Interpreted By Me, Viewed By Me ECG Rhythm: Sinus Rhythm ECG Interpretation: No Changes From Prior (03/16/12) Interpretation Of ECG: LAD, LBBB. Rate From EC O2 Sat by Pulse Oximetry: 99 (RA) Pulse Ox Interpretation: Normal Progress Note: Bloodwork, EKG and CXR ordered and reviewed. Disposition - Disposition Forms: [facility] (Mongolian) - Scribe Statement The provider has reviewed the documentation as recorded by the Scribe (Bola Rodrigues) All medical record entries made by the Scribe were at my direction and personally dictated by me. I have reviewed the chart and agree that the record accurately reflects my personal performance of the history, physical exam, medical decision making, and the department course for this patient. I have also personally directed, reviewed, and agree with the discharge instructions and disposition.
[2017-04-24 08:58] LABS: BASO # 0.1 K/uL (0.0-0.2); BASO % 0.6 % (0.0-2.0); EOS # 0.1 K/uL (0.0-0.7); EOS % 0.4 % (0.0-4.0); HEMOGLOBIN 13.6 g/dL (12.0-18.0); LYMPH # 1.9 K/uL (1.0-4.3); LYMPH % 14.1 % (20.0-40.0); MEAN CELL VOLUME 88.1 fL (80.0-94.0); MEAN CORPUSCULAR HEMOGLOBIN 30.2 pg (27.0-31.0); MEAN CORPUSCULAR HGB CONC 34.3 g/dL (33.0-37.0); MEAN PLATELET VOLUME 8.4 fL (7.2-11.7); MONO # 1.1 K/uL (0.0-0.8); MONO % 8.3 % (0.0-10.0); NEUT # 10.4 K/uL (1.8-7.0); NEUT % 76.6 % (50.0-75.0); RBC 4.49 Mil/uL (4.40-5.90); RED CELL DISTRIBUTION WIDTH 15.4 % (11.5-14.5)
[2017-04-24 08:59] LABS: WHITE BLOOD COUNT 13.6 K/uL (4.8-10.8)
--- NOTE | 2017-04-24 09:31 | RAD ---
PROCEDURE: CHEST RADIOGRAPH, 1 VIEW HISTORY: Chest pain and shortness of breath COMPARISON: 04/02/2017. FINDINGS: LUNGS: The lungs are well inflated and clear. There is mild bibasilar subsegmental atelectasis. No focal consolidation PLEURA: No pneumothorax or pleural fluid seen. CARDIOVASCULAR: There is mild cardiomegaly. OSSEOUS STRUCTURES: No significant abnormalities. VISUALIZED UPPER ABDOMEN: Normal. OTHER FINDINGS: None. IMPRESSION: No active pulmonary disease.
[2017-04-24 10:12] LABS: INR 1.1
[2017-04-24 10:30] LABS: B-TYPE NATRIURETIC PEPTIDE 162 pg/mL (0-450); CK-MB 1.92 ng/mL (0.0-3.38)
[2017-04-24 10:47] LABS: ALB/GLOB RATIO 1.2 (1.0-2.1); ALBUMIN 4.3 g/dL (3.5-5.0); ALT/SGPT 31 U/L (21-72); AST/SGOT 24 U/L (17-59); BLOOD UREA NITROGEN 35 mg/dL (9-20); GFR AFRICAN-AMERICAN > 60; GFR NON-AFRICAN AMERICAN 59
--- NOTE | 2017-04-24 12:53 | CP.PCM.HP ---
<Ashtyn Aquino - Last Filed: 04/24/17 15:00> History of Present Illness - History of Present Illness History of Present Illness: Medicine History and Physical Note for Hospitalist Service- Dr. Angeles CC: chest pain HPI: 47 year old Male with PMHx as listed below presents to the ED for chest pain that started 1 week ago. Patient reports last week he was sitting down on his laptop when he started to have a sharp pain that originated from his back, radiating to his chest. It last 30 minutes, did not improve or worsen with movement. He did not take any medication at that time. He reported this happened to him a few months back but he did not come to the ED. The event happened again 2-3 ago, increasing in severity. During these episodes he admits to becoming SOB. Patient reports having difficulty ambulating more than 2 blocks , 2 flights of stairs, and dyspnea on exertion, but these findings are chronic for him. On exam he admitted to the back pain radiating to his chest, patient is speaking in full sentences. Denied fever, chills, headache, SOB, abdominal pain, n/v/d/c, or urinary symptoms. PMHx: Asthma, CHF with EF 30% , HTN, HLD, DM, hypothyroidism, Liver Hemangiomas , diverticulosis, depression, schizophrenia/paranoia, kidney stones, glaucoma ( b/l), blind in left eye SurgHx: eye surgeries (3 years prior), kidney stent (2007) Medications: Carvedilol 25mg BID, Losartan 100mg daily, pravastatin 40mg daily, furosemide 40mg PO BID, levothyroxine 25mg daily, spironolactone 25mg daily, symbicort 250 daily, ventolin prn, metformin 500mg daily, vitamin D3 daily, fish oil daily Allergies: dilaudid and morphine (palpitations and "head feels full of air") SHx: denies tobacco, alcohol, and drug use; lives in [place] alone; unemployed, disability FamHx: Father- [place], [place] PMD: Dr. Woods Cardio: Dr. Vu [phone] Present on Admission - Present on Admission Any Indicators Present on Admission: No Past Patient History - Infectious Disease Hx of Infectious Diseases: None - Past Medical History & Family History Past Medical History?: Yes - Past Social History Smoking Status: Never Smoked - CARDIAC Hx Congestive Heart Failure: Yes Hx Hypercholesterolemia: Yes Hx Hypertension: Yes - PULMONARY Hx Asthma: Yes Hx Bronchitis: Yes Hx Chronic Obstructive Pulmonary Disease (COPD): Yes - NEUROLOGICAL Hx Seizures: No - HEENT Hx HEENT Problems: Yes Hx Blind: Yes (left eye) Hx Glaucoma: Yes Other/Comment: lt. eye blind - RENAL Hx Kidney Stones: Yes (KIDNEY STENT 2007) - ENDOCRINE/METABOLIC Hx Hypothyroidism: Yes - HEMATOLOGICAL/ONCOLOGICAL Hx Human Immunodeficiency Virus (HIV): No - INTEGUMENTARY Hx Dermatological Problems: No - MUSCULOSKELETAL/RHEUMATOLOGICAL Hx Musculoskeletal Disorders: No Hx Falls: No - GASTROINTESTINAL Hx Diverticulitis: Yes - PSYCHIATRIC Hx Depression: Yes Hx Paranoia: Yes Hx Substance Use: No - SURGICAL HISTORY Hx Surgeries: Yes Other/Comment: KIDNEY STENT, LEFT EYE SURGERY X3 - ANESTHESIA Hx Anesthesia: Yes Hx Anesthesia Reactions: No Hx Malignant Hyperthermia: No (UNKNOWN) Meds Home Medications: Home Medication List Medication Instructions Recorded Confirmed Type Mycophenolate Mofetil [Cellcept] 500 mg PO DAILY tab 04/25/17 Rx Allergies/Adverse Reactions: Allergies Allergy/AdvReac Type Severity Reaction Status Date / Time hydromorphone HCl Allergy SHORTNESS Verified 04/24/17 07:42 [From Dilaudid] OF BREATH morphine Allergy HEADACHE Verified 04/24/17 07:42 Results - Vital Signs Recent Vital Signs: Last Vital Signs Temp 98.2 F 04/24/17 11:10 Pulse 79 04/24/17 11:10 Resp 20 04/24/17 11:10 BP 104/72 04/24/17 11:10 Pulse Ox 97 04/24/17 11:10 - Labs Result Diagrams: 04/24/17 08:54 04/24/17 09:55 Labs: Laboratory Results - last 24 hr 04/24/17 04/24/17 04/24/17 08:39 08:54 09:55 WBC 13.6 H D RBC 4.49 Hgb 13.6 Hct 39.5 MCV 88.1 MCH 30.2 MCHC 34.3 RDW 15.4 H Plt Count 230 MPV 8.4 Neut % (Auto) 76.6 H Lymph % (Auto) 14.1 L Rock % (Auto) 8.3 Eos % (Auto) 0.4 Baso % (Auto) 0.6 Neut # (Auto) 10.4 H Lymph # (Auto) 1.9 Rock # (Auto) 1.1 H Eos # (Auto) 0.1 Baso # (Auto) 0.1 PT 12.0 INR 1.1 APTT 27 Sodium Potassium Chloride Carbon Dioxide Anion Gap BUN Creatinine Est GFR ( Amer) Est GFR (Non-Af Amer) POC Glucose (mg/dL) 146 H Random Glucose Calcium Total Bilirubin AST ALT Alkaline Phosphatase Total Creatine Kinase CK-MB (Mass) Troponin I NT-Pro-B Natriuret Pep Total Protein Albumin Globulin Albumin/Globulin Ratio 04/24/17 09:55 WBC RBC Hgb Hct MCV MCH MCHC RDW Plt Count MPV Neut % (Auto) Lymph % (Auto) Rock % (Auto) Eos % (Auto) Baso % (Auto) Neut # (Auto) Lymph # (Auto) Rock # (Auto) Eos # (Auto) Baso # (Auto) PT INR APTT Sodium 139 Potassium 3.6 Chloride 99 Carbon Dioxide 25 Anion Gap 19 BUN 35 H Creatinine 1.3 Est GFR ( Amer) > 60 Est GFR (Non-Af Amer) 59 POC Glucose (mg/dL) Random Glucose 162 H Calcium 10.0 Total Bilirubin 0.4 AST 24 ALT 31 Alkaline Phosphatase 57 Total Creatine Kinase 59 CK-MB (Mass) 1.92 Troponin I 0.0150 NT-Pro-B Natriuret Pep 162 Total Protein 7.9 Albumin 4.3 Globulin 3.6 Albumin/Globulin Ratio 1.2 Assessment & Plan - Assessment and Plan (Free Text) Plan: Chest Pain R/O ACS, PE, Aortic Dissection Vitals stable, no shortness of breath, tachycardia, no changes when compared to prior EKG Cardiology - Dr. 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 Vu- reports normal Cardiac Cath 5 years ago with subsequent normal nuclear stress tests. He will follow him as outpatient. Once workup is negative, patient cleared by cardio for discharge. 1st WES - negative, EKG: LAD, LBBB @ 86 BPM (unchanged from previous EKG in 2016) ECHO (08/2013) LV systolic function moderately impaired, EF 30-35%, abnormal LV diastolic dysfunction. Recent ECHO with Dr. Vu x2 months ago- showed EF 30% (as per patient) F/U serial ROMIs and EKG F/U CTA Meds: ASA 81mg PO daily Coreg 25mg PO Q12 Hyzaar 100/12.5 1 tab daily CHF Assessment and Plan: Not in exacerbation CXR: No active pulmonary disease. BNP: 162 ECHO (08/2013) LV systolic function moderately impaired, EF 30-35%, abnormal LV diastolic dysfunction. Recent ECHO with Dr. Vu x2 months ago- showed EF 30% Meds: Lasix 40mg PO BID Aldactone 25mg PO daily HTN Assessment and Plan: Continue home medications: Coreg 25mg PO Q12, Hyzaar 100/12.5 1 tab daily Hyperlipemia Assessment and Plan: Continue home medications: Pravastatin 40mg PO QHS (NF will be adjusted by Pharmacy) Diabetes Mellitus Assessment and Plan: Accuchecks Hypoglycemia protocol Home medications: Metformin 500mg PO daily (will hold in light of receiving IV contrast for CTA), ISS- low A1c: 6.8% 03/2017 Hx of Lupus Patient follows up with Book Reviewer, Dr. Bull - scheduled appointment in 3 months. Resume Mycophenolate 500mg PO daily Hx Hypothyroidism Resume home medication: Synthroid 25mcg PO daily F/U TSH, Free T4 Hx Asthma Assessment and Plan: Continue home medications: Albuterol PRN, Singulair 10mg PO daily, CXR: No active pulmonary disease. Hx Hepatic Hemangiomas Nuclear nuclear medicine scintigraphy: Multiple hepatic a meningiomas. Hx Glaucoma Left Eye Blind Resumed home medications Prophylatic Measures GI PPX: Protonix 40mg PO daily DVT PPX: SCDs, Heparin Q12 DW Ashtyn Charles DO, PGY-1 <Anahi Angeles - Last Filed: 04/25/17 07:44> Results - Vital Signs Recent Vital Signs: Last Vital Signs Temp 97.3 F L 04/24/17 23:05 Pulse 82 04/25/17 06:25 Resp 20 04/24/17 23:05 BP 117/74 04/25/17 06:25 Pulse Ox 96 04/24/17 23:05 - Labs Result Diagrams: 04/25/17 06:58 04/24/17 09:55 Labs: Laboratory Results - last 24 hr 04/24/17 04/24/17 04/24/17 08:39 08:54 09:55 WBC 13.6 H D RBC 4.49 Hgb 13.6 Hct 39.5 MCV 88.1 MCH 30.2 MCHC 34.3 RDW 15.4 H Plt Count 230 MPV 8.4 Neut % (Auto) 76.6 H Lymph % (Auto) 14.1 L Rock % (Auto) 8.3 Eos % (Auto) 0.4 Baso % (Auto) 0.6 Neut # (Auto) 10.4 H Lymph # (Auto) 1.9 Rock # (Auto) 1.1 H Eos # (Auto) 0.1 Baso # (Auto) 0.1 PT 12.0 INR 1.1 APTT 27 Sodium Potassium Chloride Carbon Dioxide Anion Gap BUN Creatinine Est GFR ( Amer) Est GFR (Non-Af Amer) POC Glucose (mg/dL) 146 H Random Glucose Calcium Total Bilirubin AST ALT Alkaline Phosphatase Total Creatine Kinase CK-MB (Mass) Troponin I NT-Pro-B Natriuret Pep Total Protein Albumin Globulin Albumin/Globulin Ratio Free T4 TSH 3rd Generation 04/24/17 04/24/17 04/24/17 09:55 17:38 18:38 WBC RBC Hgb Hct MCV MCH MCHC RDW Plt Count MPV Neut % (Auto) Lymph % (Auto) Rock % (Auto) Eos % (Auto) Baso % (Auto) Neut # (Auto) Lymph # (Auto) Rock # (Auto) Eos # (Auto) Baso # (Auto) PT INR APTT Sodium 139 Potassium 3.6 Chloride 99 Carbon Dioxide 25 Anion Gap 19 BUN 35 H Creatinine 1.3 Est GFR ( Amer) > 60 Est GFR (Non-Af Amer) 59 POC Glucose (mg/dL) 210 H Random Glucose 162 H Calcium 10.0 Total Bilirubin 0.4 AST 24 ALT 31 Alkaline Phosphatase 57 Total Creatine Kinase 59 CK-MB (Mass) 1.92 Troponin I 0.0150 NT-Pro-B Natriuret Pep 162 Total Protein 7.9 Albumin 4.3 Globulin 3.6 Albumin/Globulin Ratio 1.2 Free T4 TSH 3rd Generation 0.03 L 04/24/17 04/24/17 04/24/17 18:38 19:49 21:06 WBC RBC Hgb Hct MCV MCH MCHC RDW Plt Count MPV Neut % (Auto) Lymph % (Auto) Rock % (Auto) Eos % (Auto) Baso % (Auto) Neut # (Auto) Lymph # (Auto) Rock # (Auto) Eos # (Auto) Baso # (Auto) PT INR APTT Sodium Potassium Chloride Carbon Dioxide Anion Gap BUN Creatinine Est GFR ( Amer) Est GFR (Non-Af Amer) POC Glucose (mg/dL) 193 H Random Glucose Calcium Total Bilirubin AST ALT Alkaline Phosphatase Total Creatine Kinase 52 L CK-MB (Mass) 1.37 Troponin I < 0.0120 NT-Pro-B Natriuret Pep Total Protein Albumin Globulin Albumin/Globulin Ratio Free T4 1.03 TSH 3rd Generation 04/25/17 04/25/17 04/25/17 01:53 06:16 06:58 WBC 13.5 H RBC 4.63 Hgb 13.7 Hct 41.1 MCV 88.7 MCH 29.5 MCHC 33.3 RDW 15.6 H Plt Count 231 MPV 8.7 Neut % (Auto) 73.4 Lymph % (Auto) 16.5 L Rock % (Auto) 9.2 Eos % (Auto) 0.6 Baso % (Auto) 0.3 Neut # (Auto) 9.9 H Lymph # (Auto) 2.2 Rock # (Auto) 1.2 H Eos # (Auto) 0.1 Baso # (Auto) 0.0 PT INR APTT Sodium Potassium Chloride Carbon Dioxide Anion Gap BUN Creatinine Est GFR ( Amer) Est GFR (Non-Af Amer) POC Glucose (mg/dL) 137 H Random Glucose Calcium Total Bilirubin AST ALT Alkaline Phosphatase Total Creatine Kinase 48 L CK-MB (Mass) 1.40 Troponin I 0.0150 NT-Pro-B Natriuret Pep Total Protein Albumin Globulin Albumin/Globulin Ratio Free T4 TSH 3rd Generation Attending/Attestation - Attestation I have personally seen and examined this patient.: Yes I have fully participated in the care of the patient.: Yes I have reviewed all pertinent clinical information: Yes Notes (Text): Seen and examined.Complaining of sharp pain from his 04/25/17 07:38 04/25/17 07:40
[2017-04-24] MEDS ORDERED: Albuterol HFA 90 mcg/actuation (8 g) INH PRN (14:07)
[2017-04-24] MEDS ORDERED: Iodixanol 320 MG/ML 100 ML BOTTLE IV ONE (16:14)
[2017-04-24] MEDS: (Novolin R) Insulin Human Regular 100 units/ml vial SC SCH ×2 (17:50→21:43)
--- NOTE | 2017-04-24 17:59 | CT ---
CTA chest PE protocol Indication: Chest x-ray performed 04/24/17 Technique: Contiguous axial images were obtained through the chest with intravenous contrast enhancement. Sagittal and coronal reconstructions were generated and reviewed. This CT exam was performed using 1 or more of the following dose reduction techniques: Automated exposure control, adjustment of the MAA and/or kV according to patient size, and/or use of iterative reconstruction technique. IV Contrast: 100 mL Visipaque 320 IV Radiation dose (DLP): 632.66 MGy-cm. Comparison: Chest xray performed 04/24/17 Findings: Visualized portions of the inferior thyroid gland appear unremarkable. The mediastinal and hilar vascular structures appear within normal limits. The heart appears within normal limits of size. No large central or segmental pulmonary embolus evident. No focal consolidation. No pleural effusion. No pneumothorax. 4 mm left lower lobe pulmonary nodule (series 4, image 73). Limited visualized portions of the upper abdomen appear grossly unremarkable. No acute osseous abnormality is detected. Impression: No large central or segmental pulmonary embolus identified. 4 mm left lower lobe pulmonary nodule. According to 2017 Fleischner criteria, if the patient is low risk, no routine follow-up is recommended. If the patient is high risk, an optional CT at 12 months is recommended.
[2017-04-24] MEDS ORDERED: Fluticasone-Salmeterol 250-50mcg Diskus INH SCH (20:00)
[2017-04-24 20:22] LABS: CK-MB 1.37 ng/mL (0.0-3.38)
[2017-04-24] MEDS: Brimonidine 0.2% Opth Sol (5ml) OD SCH (21:46)
[2017-04-24] MEDS: Aritificial Tears (15ml) OU SCH (21:47)
[2017-04-24] MEDS ORDERED: Latanoprost 2.5 ml Opht Soln OU SCH (22:00)
[2017-04-24] MEDS: Naphazoline-Pheniramine Ophth Soln OD SCH (22:07)
[2017-04-25 02:49] LABS: CK-MB 1.4 ng/mL (0.0-3.38); TROPONIN I 0.015 ng/mL (0.00-0.120)
[2017-04-25] MEDS ORDERED: Levothyroxine 25 MCG TAB PO SCH (06:30)
[2017-04-25 07:03] LABS: BASO % 0.3 % (0.0-2.0); EOS # 0.1 K/uL (0.0-0.7); EOS % 0.6 % (0.0-4.0); HEMOGLOBIN 13.7 g/dL (12.0-18.0); LYMPH # 2.2 K/uL (1.0-4.3); LYMPH % 16.5 % (20.0-40.0); MEAN CELL VOLUME 88.7 fL (80.0-94.0); MEAN CORPUSCULAR HEMOGLOBIN 29.5 pg (27.0-31.0); MEAN CORPUSCULAR HGB CONC 33.3 g/dL (33.0-37.0); MEAN PLATELET VOLUME 8.7 fL (7.2-11.7); MONO # 1.2 K/uL (0.0-0.8); MONO % 9.2 % (0.0-10.0); NEUT # 9.9 K/uL (1.8-7.0); NEUT % 73.4 % (50.0-75.0); NRBC % 0.1 % (0.0-2.0); RBC 4.63 Mil/uL (4.40-5.90); RED CELL DISTRIBUTION WIDTH 15.6 % (11.5-14.5); WHITE BLOOD COUNT 13.5 K/uL (4.8-10.8)
--- NOTE | 2017-04-25 07:38 | CP.PCM.DIS ---
Provider - Provider Date of Admission: 04/24/17 12:35 Attending physician: Anahi Angeles MD Time Spent in preparation of Discharge (in minutes): 55 Hospital Course - Lab Results Lab Results: Most Recent Lab Values WBC 13.5 K/uL (4.8-10.8) H 04/25/17 06:58 RBC 4.63 Mil/uL (4.40-5.90) 04/25/17 06:58 Hgb 13.7 g/dL (12.0-18.0) 04/25/17 06:58 Hct 41.1 % (35.0-51.0) 04/25/17 06:58 MCV 88.7 fL (80.0-94.0) 04/25/17 06:58 MCH 29.5 pg (27.0-31.0) 04/25/17 06:58 MCHC 33.3 g/dL (33.0-37.0) 04/25/17 06:58 RDW 15.6 % (11.5-14.5) H 04/25/17 06:58 Plt Count 231 K/uL (130-400) 04/25/17 06:58 MPV 8.7 fL (7.2-11.7) 04/25/17 06:58 Neut % (Auto) 73.4 % (50.0-75.0) 04/25/17 06:58 Lymph % (Auto) 16.5 % (20.0-40.0) L 04/25/17 06:58 Ness % (Auto) 9.2 % (0.0-10.0) 04/25/17 06:58 Eos % (Auto) 0.6 % (0.0-4.0) 04/25/17 06:58 Baso % (Auto) 0.3 % (0.0-2.0) 04/25/17 06:58 Neut # (Auto) 9.9 K/uL (1.8-7.0) H 04/25/17 06:58 Lymph # (Auto) 2.2 K/uL (1.0-4.3) 04/25/17 06:58 Ness # (Auto) 1.2 K/uL (0.0-0.8) H 04/25/17 06:58 Eos # (Auto) 0.1 K/uL (0.0-0.7) 04/25/17 06:58 Baso # (Auto) 0.0 K/uL (0.0-0.2) 04/25/17 06:58 PT 12.0 SECONDS (9.7-12.2) 04/24/17 09:55 INR 1.1 04/24/17 09:55 APTT 27 SECONDS (21-34) 04/24/17 09:55 Sodium 139 mmol/L (132-148) 04/24/17 09:55 Potassium 3.6 mmol/L (3.6-5.2) 04/24/17 09:55 Chloride 99 mmol/L (98-107) 04/24/17 09:55 Carbon Dioxide 25 mmol/L (22-30) 04/24/17 09:55 Anion Gap 19 (10-20) 04/24/17 09:55 BUN 35 mg/dL (9-20) H 04/24/17 09:55 Creatinine 1.3 mg/dL (0.8-1.5) 04/24/17 09:55 Est GFR ( Amer) > 60 04/24/17 09:55 Est GFR (Non-Af Amer) 59 04/24/17 09:55 POC Glucose (mg/dL) 137 mg/dL (65-110) H 04/25/17 06:16 Random Glucose 162 mg/dL (75-110) H 04/24/17 09:55 Calcium 10.0 mg/dl (8.6-10.4) 04/24/17 09:55 Total Bilirubin 0.4 mg/dL (0.2-1.3) 04/24/17 09:55 AST 24 U/L (17-59) 04/24/17 09:55 ALT 31 U/L (21-72) 04/24/17 09:55 Alkaline Phosphatase 57 U/L (38-126) 04/24/17 09:55 Total Creatine Kinase 48 U/L (55-170) L 04/25/17 01:53 CK-MB (Mass) 1.40 ng/mL (0.0-3.38) 04/25/17 01:53 Troponin I 0.0150 ng/mL (0.00-0.120) 04/25/17 01:53 NT-Pro-B Natriuret Pep 162 pg/mL (0-450) 04/24/17 09:55 Total Protein 7.9 g/dL (6.3-8.3) 04/24/17 09:55 Albumin 4.3 g/dL (3.5-5.0) 04/24/17 09:55 Globulin 3.6 gm/dL (2.2-3.9) 04/24/17 09:55 Albumin/Globulin Ratio 1.2 (1.0-2.1) 04/24/17 09:55 Free T4 1.03 ng/dL (0.78-2.19) 04/24/17 18:38 TSH 3rd Generation 0.03 mIU/L (0.46-4.68) L 04/24/17 18:38 - Hospital Course Hospital Course: Upon Admission: CC: chest pain HPI: 47 year old Citizen Of [place] Male with PMHx as listed below presents to the ED for chest pain that started 1 week ago. Patient reports last week he was sitting down on his laptop when he started to have a sharp pain that originated from his back, radiating to his chest. It last 30 minutes, did not improve or worsen with movement. He did not take any medication at that time. He reported this happened to him a few months back but he did not come to the ED. The event happened again 2-3 ago, increasing in severity. During these episodes he admits to becoming SOB. Patient reports having difficulty ambulating more than 2 blocks , 2 flights of stairs, and dyspnea on exertion, but these findings are chronic for him. On exam he admitted to the back pain radiating to his chest, patient is speaking in full sentences. Denied fever, chills, headache, SOB, abdominal pain, n/v/d/c, or urinary symptoms. PMHx: Asthma, CHF with EF 30% , HTN, HLD, DM, hypothyroidism, Liver Hemangiomas , diverticulosis, depression, schizophrenia/paranoia, kidney stones, glaucoma ( b/l), blind in left eye SurgHx: eye surgeries (3 years prior), kidney stent (2007) Medications: Carvedilol 25mg BID, Losartan 100mg daily, pravastatin 40mg daily, furosemide 40mg PO BID, levothyroxine 25mg daily, spironolactone 25mg daily, symbicort 250 daily, ventolin prn, metformin 500mg daily, vitamin D3 daily, fish oil daily Allergies: dilaudid and morphine (palpitations and "head feels full of air") SHx: denies tobacco, alcohol, and drug use; lives in [place] alone; unemployed, disability FamHx: Father- [place], [place] PMD: Dr. Woods Cardio: Dr. Vu [phone] Throughout Hospital Course: Patient was admitted for chest pain r/o ACS, PE, Dissection. Chest Pain R/O ACS, PE, Aortic Dissection Vitals stable, no shortness of breath, tachycardia, no changes when compared to prior EKG Cardiology - Dr. 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 Vu- reports normal Cardiac Cath 5 years ago with subsequent normal nuclear stress tests. He will follow him as outpatient. Once workup is negative, patient cleared by cardio for discharge. 1st WES - negative, EKG: LAD, LBBB @ 86 BPM (unchanged from previous EKG in 2015) ECHO (08/2013) LV systolic function moderately impaired, EF 30-35%, abnormal LV diastolic dysfunction. Recent ECHO with Dr. Vu x2 months ago- showed EF 30% (as per patient) Serial ROMIs - negative, EKGs unchanged CTA-No large central or segmental pulmonary embolus identified. 4 mm left lower lobe pulmonary nodule. According to 2017 Fleischner criteria, if the patient is low risk, no routine follow-up is recommended. If the patient is high risk, an optional CT at 12 months is recommended. Meds: ASA 81mg PO daily Coreg 25mg PO Q12 Hyzaar 100/12.5 1 tab daily Left Lower Nodule 4mm nodule noted on CTA - will need repeat CT Scan in 12 months. This nodule has decreased in sized since previously seen on 04/02/17- was 5mm CHF Assessment and Plan: Not in exacerbation CXR: No active pulmonary disease. BNP: 162 ECHO (08/2013) LV systolic function moderately impaired, EF 30-35%, abnormal LV diastolic dysfunction. Recent ECHO with Dr. Vu x2 months ago- showed EF 30% Meds: Lasix 40mg PO BID Aldactone 25mg PO daily HTN Assessment and Plan: Continue home medications: Coreg 25mg PO Q12, Hyzaar 100/12.5 1 tab daily Hyperlipemia Assessment and Plan: Continue home medications: Pravastatin 40mg PO QHS (NF will be adjusted by Pharmacy) Diabetes Mellitus Assessment and Plan: Accuchecks Hypoglycemia protocol Home medications: Metformin 500mg PO daily (will hold in light of receiving IV contrast for CTA), ISS- low A1c: 6.8% 03/2017 Hx of Lupus Patient follows up with [facility] [employer] Specialist, Dr. Bull - scheduled appointment in 3 months. Resume Mycophenolate 500mg PO daily Hx Hypothyroidism Resume home medication: Synthroid 25mcg PO daily TSH- low, Free T4 - WNL -Euthyroid Hx Asthma Assessment and Plan: Continue home medications: Albuterol PRN, Singulair 10mg PO daily, CXR: No active pulmonary disease. Hx Hepatic Hemangiomas Nuclear nuclear medicine scintigraphy: Multiple hepatic a meningiomas. Hx Glaucoma Left Eye Blind Resumed home medications Please review EMR for full record. This is a brief summary of the patient's hospital course. Discharge Plan - Follow Up Plan Condition: GOOD Disposition: HOME/ ROUTINE Instructions: Back Pain (GEN) Additional Instructions: You are to follow up with his manager meeting Dr. Vu as outpatient and with Youth [employer]ist Dr. Bull as outpatient. Please follow up with your primary care physician within 1 week. There was a small nodule noted in the lower left portion of your left lung. I has decreased in size since last seen on . It went from 5 mm to 4mm. It is recommended you have a repeat Cat Scan without contrast in 12 months. Please continue all your home medications. Referrals: Raza Vu MD [Staff Provider] - James Bull MD [Staff Provider] -
[2017-04-25] MEDS: (Novolin R) Insulin Human Regular 100 units/ml vial SC SCH ×2 (08:06→12:46)
[2017-04-25 08:19] LABS: BLOOD UREA NITROGEN 29 mg/dL (9-20); CALCIUM 9.8 mg/dl (8.6-10.4); GFR AFRICAN-AMERICAN > 60; GFR NON-AFRICAN AMERICAN > 60
[2017-04-25 08:20] LABS: ALB/GLOB RATIO 1.2 (1.0-2.1); ALBUMIN 4.4 g/dL (3.5-5.0); ALT/SGPT 33 U/L (21-72); AST/SGOT 19 U/L (17-59); LDL CHOLESTEROL 107 mg/dL (0-129); MAGNESIUM 2.1 mg/dL (1.6-2.3)
[2017-04-25 08:21] LABS: HDL CHOLESTEROL 37 mg/dL (30-70)
[2017-04-25 08:43] VITALS: PULSE 88; RESP 18; TEMP 98.4; O2SAT 97
--- NOTE | 2017-04-25 09:47 | PCM.HF ---
Heart Failure Core Measure - Heart Failure Ejection Fraction: Less Than 40 % Left Ventricular Function to be assessed after discharge: No MICAH Inhibitor Prescribed: Yes Beta-Jason Prescribed: Metoprolol Succinate Angiotensin II Receptor Jason Prescribed: No Contraindication/Reason for not providing: on MICAH AnticoagulationTherapy for Atrial Fibrillation/Atrialflutter: No Contraindication/Reason for not providing: no hx afib Aldosterone Antagonist Prescribed: Yes Hydralazine Nitrate Prescribed: No Contraindication/Reason for not providing: n/a Implantable Cardioverter Defibrillator Therapy: No Contraindication/Reason for not providing: n/a Cardiac Resynchronization Therapy Prescribed: No Contraindication/Reason for not providing: n/a - Follow up Will be discharged to: Home Follow Up Date (must be within 7 days from discharge): 05/02/17 Follow Up Time: 09:00
[2017-04-25] MEDS ORDERED: Pantoprazole 40 mg EC Tab PO SCH (10:00)
[2017-04-25] MEDS: Aritificial Tears (15ml) OU SCH (11:05)
[2017-04-25] MEDS: Brimonidine 0.2% Opth Sol (5ml) OD SCH (11:06)
[2017-04-25] MEDS: Naphazoline-Pheniramine Ophth Soln OD SCH (11:06)
[2017-04-25 11:09] VITALS: BP 142/93
--- NOTE | 2017-04-25 19:09 | CARD ---
APPROVED REPORT EKG Measurement Heart [id number] <Conclusion> Normal sinus rhythm Left bundle branch block Abnormal ECG
[2017-04-26] MEDS ORDERED: Pneumococcal 23-Valent Vaccine IM ONE (10:00)
== END 2017-04-25 13:28 | disposition home or self-care (01) ==
LOC: C.ER 07:32 → C.9E 12:35 → C.6T 17:17
PROVIDERS: ADMIT Internal Medicine; ATTEND Internal Medicine
DX: I11.0 Hypertensive heart disease with heart failure (principal); I50.9 Heart failure, unspecified; J44.9 Chronic obstructive pulmonary disease, unspecified; E11.9 Type 2 diabetes mellitus without complications; E78.5 Hyperlipidemia, unspecified; E03.9 Hypothyroidism, unspecified; D32.9 Benign neoplasm of meninges, unspecified; N40.0 Benign prostatic hyperplasia without lower urinary tract symptoms; H40.9 Unspecified glaucoma; F22 Delusional disorders; F20.9 Schizophrenia, unspecified; E78.00 Pure hypercholesterolemia, unspecified; Z79.84 Long term (current) use of oral hypoglycemic drugs; H54.62 Unqualified visual loss, left eye, normal vision right eye; Z83.3 Family history of diabetes mellitus; Z87.442 Personal history of urinary calculi
CPT/HCPCS: 36415; 71045; 71275; 80053; 80061; 82550; 82553; 82948; 83735; 83880; 84100; 84439; 84443; 84484; 85025; 85610; 85730; 93005; 99285; G0378; J1644; J7517; Q9967

== ENCOUNTER 2017-05-18 08:53 | Emergency (ER) | payer OTHER ==
[2017-05-18 08:53] VITALS: BMI 44.4
[2017-05-18 09:10] VITALS: BP 126/84; PULSE 77; RESP 18; TEMP 97.6; O2SAT 100
--- NOTE | 2017-05-18 09:30 | C.PDOC ---
History Of Present Illness 47yo male, presents to ED with complaints of left ear discomfort for the past 2 days. Patient states he has been using Q-tips in an attempt to clear up his ear. He denies any associated fever, chills, sore throat. No other medical complaints. Time Seen by Provider: 05/18/17 09:24 Chief Complaint (Nursing): ENT Problem History Per: Patient History/Exam Limitations: None Onset/Duration Of Symptoms: Days (2) Current Symptoms Are (Timing): Still Present Symptoms Have Been: Continuous Past Medical History Reviewed: Historical Data, Nursing Documentation, Vital Signs Vital Signs: Last Vital Signs Temp 97.6 F 05/18/17 09:08 Pulse 77 05/18/17 09:08 Resp 18 05/18/17 09:08 BP 126/84 05/18/17 09:08 Pulse Ox 100 05/18/17 09:30 - Medical History PMH: Asthma, Benign Prostatic Hyperplasia, Bronchitis, CHF, COPD, Depression, Diverticulitis, HTN, Hypercholesterolemia, Hyperlipidemia, Hypothyroidism, Kidney Stones (KIDNEY STENT 2007), Paranoia Denies: HIV, Seizures Surgical History: No Surg Hx - [facility] Procedures CLOSED ENDOSCOPIC BIOPSY OF LARGE INTESTINE (11/18/12) DX ULTRASOUND-HEAD/NECK (08/20/12) ENDOSC POLYPECTOMY OF LG INTEST (11/18/12) INJECT/INFUSE NEC (09/15/13) NEBULIZER THERAPY (10/23/13) PERCUTAN NEEDLE BX OF THYROID GLAND (08/20/12) PHYSICAL THERAPY NEC (11/24/14) Family History: States: Diabetes, Hypertension - Social History Hx Tobacco Use: No Hx Alcohol Use: No Hx Substance Use: No - Immunization History Hx Tetanus Toxoid Vaccination: No Hx Influenza Vaccination: Yes Hx Pneumococcal Vaccination: No Review Of Systems Except As Marked, All Systems Reviewed And Found Negative. Constitutional: Negative for: Fever, Chills ENT: Positive for: Ear Pain. Negative for: Throat Pain Physical Exam - Physical Exam Appears: Non-toxic, No Acute Distress Skin: Warm, Dry Head: Normacephalic Eye(s): bilateral: Normal Inspection Ear(s): Left: Other (boggy left ear canal, normal TM), Right: Normal Nose: Normal Oral Mucosa: Moist Throat: Normal, No Erythema, No Exudate Neck: Supple Chest: Symmetrical Cardiovascular: Rhythm Regular Respiratory: Normal Breath Sounds ED Course And Treatment O2 Sat by Pulse Oximetry: 100 (RA) Pulse Ox Interpretation: Normal Medical Decision Making Medical Decision Making: L otitis externa no TM rupture Disposition Doctor Will See Patient In The: Office Counseled Patient/Family Regarding: Studies Performed, Diagnosis - Disposition Referrals: [facility] [Outside] Disposition: HOME/ ROUTINE Disposition Time: 09:30 Condition: GOOD Additional Instructions: Cortisporin Otic Solution: 3 drops to the LEFT ear 3 x/day for 7 days NEVER put a Q-tip nor other objects in your ear canal Debrox drops: 3 drops @ night to help reduce ear canal wax. Follow-up in our outpatient Clinic as needed. Prescriptions: Neomycin/Polymyxin/Hydrocort [Cortisporin Otic Soln] 3 drop OD TID #1 bottle Instructions: Outer Ear Infection (DC), Carbamide Peroxide Forms: [email or web address] (Swiss) - Clinical Impression Clinical Impression: Otitis externa - Scribe Statement The provider has reviewed the documentation as recorded by the Scribe (Latisha Ramirez) Provider Attestation: All medical record entries made by the Scribe were at my direction and personally dictated by me. I have reviewed the chart and agree that the record accurately reflects my personal performance of the history, physical exam, medical decision making, and the department course for this patient. I have also personally directed, reviewed, and agree with the discharge instructions and disposition.
== END 2017-05-18 09:51 | disposition home or self-care (01) ==
LOC: C.ER 08:53
DX: H60.92 Unspecified otitis externa, left ear (principal)

== ENCOUNTER 2017-09-11 07:50 | Observation (INO) | payer OTHER ==
[2017-09-11 07:53] VITALS: BMI 42.1
[2017-09-11] MEDS: Albuterol-Ipratrop 3 mg / 0.5 (3 ml) UD IH SCH ×3 (08:20→08:50)
[2017-09-11] MEDS ORDERED: Albuterol-Ipratrop 3 mg / 0.5 (3 ml) UD ONE (08:30)
--- NOTE | 2017-09-11 08:30 | C.PDOC ---
History Of Present Illness 47yo male with history of lupus, CHF, asthma, coems to ER stating he has been wheezing x 1 week. He also reports a productive cough with phlegm. Patient has been using his inhaler with no relief of symptoms. Otherwise, he denies any fever, chills, chest pain, vomiting, weakness, and offers no other complaints. Time Seen by Provider: 09/11/17 07:50 Chief Complaint (Nursing): Shortness Of Breath History Per: Patient History/Exam Limitations: no limitations Onset/Duration Of Symptoms: Days Current Symptoms Are (Timing): Still Present Initiating Event: Upper Respiratory Illness Quality: "Pain" Associated Symptoms: Productive Cough. denies: Fever, Chills, Sweating, Chest Pain, Bloody Cough, Heart Racing, Leg/Calf Pain, Ankle/Leg Swelling, Dizziness, Light-headedness Recent travel outside of the [place]: No Additional History Per: Patient Past Medical History Reviewed: Historical Data, Nursing Documentation, Vital Signs Vital Signs: Last Vital Signs Temp 97.7 F 09/11/17 07:53 Pulse 83 09/11/17 09:19 Resp 19 09/11/17 09:20 BP 117/80 09/11/17 09:19 Pulse Ox 96 09/11/17 10:34 - Medical History PMH: Asthma, Benign Prostatic Hyperplasia, Bronchitis, CHF, COPD, Depression, Diverticulitis, HTN, Hypercholesterolemia, Hyperlipidemia, Hypothyroidism, Kidney Stones (KIDNEY STENT 2007), Paranoia Denies: HIV, Seizures Surgical History: No Surg Hx - [facility] Procedures CLOSED ENDOSCOPIC BIOPSY OF LARGE INTESTINE (11/18/12) DX ULTRASOUND-HEAD/NECK (08/20/12) ENDOSC POLYPECTOMY OF LG INTEST (11/18/12) INJECT/INFUSE NEC (09/15/13) NEBULIZER THERAPY (10/23/13) PERCUTAN NEEDLE BX OF THYROID GLAND (08/20/12) PHYSICAL THERAPY NEC (11/24/14) Family History: States: Diabetes, Hypertension - Social History Hx Tobacco Use: No Hx Alcohol Use: No Hx Substance Use: No - Immunization History Hx Tetanus Toxoid Vaccination: No Hx Influenza Vaccination: No Hx Pneumococcal Vaccination: No Review Of Systems Except As Marked, All Systems Reviewed And Found Negative. Constitutional: Negative for: Fever, Chills Cardiovascular: Negative for: Chest Pain Respiratory: Positive for: Cough, Shortness of Breath, Sputum Gastrointestinal: Negative for: Vomiting Neurological: Negative for: Weakness Physical Exam - Physical Exam Appears: Non-toxic Skin: Warm, Dry Head: Normacephalic Eye(s): bilateral: Normal Inspection Nose: No Flaring, No Discharge Neck: Normal ROM, Supple Chest: Symmetrical Cardiovascular: Rhythm Regular Respiratory: No Accessory Muscle Use, No Rales, No Rhonchi, No Stridor, Wheezing (expitory wheeze bilaterally) Gastrointestinal/Abdominal: Normal Exam, Soft, No Tenderness Extremity: Normal ROM, No Pedal Edema Extremity: Bilateral: No Pedal Edema Neurological/Psych: Oriented x3 Gait: Steady ED Course And Treatment - Laboratory Results Result Diagrams: 09/11/17 08:25 09/11/17 08:25 Lab Interpretation: No Acute Changes ECG: Interpreted By Me ECG Rhythm: Sinus Rhythm, L BBB, Nonspecific Changes ECG Interpretation: No Changes From Prior Rate From EC O2 Sat by Pulse Oximetry: 96 (RA) Pulse Ox Interpretation: Normal - Radiology CXR: Interpreted by Me CXR Interpretation: Yes: No Acute Disease Progress Note: Labs, EKG and CXR ordered. Patient given Solumedrol and Duoneb. On re-evaluation continues to wheeze Reassessment Condition: Improved - Physician Consult Information Physician Contacted: Anahi Angeles Outcome Of Conversation: admit Disposition Discussed With : Anahi Angeles Doctor Will See Patient In The: Hospital - Disposition Disposition: HOSPITALIZED Disposition Time: 10:20 Condition: STABLE - POA Present On Arrival: None - Clinical Impression Clinical Impression: Asthma exacerbation - Scribe Statement The provider has reviewed the documentation as recorded by the Nila Ramirez Provider Attestation: All medical record entries made by the Nila were at my direction and personally dictated by me. I have reviewed the chart and agree that the record accurately reflects my personal performance of the history, physical exam, medical decision making, and the department course for this patient. I have also personally directed, reviewed, and agree with the discharge instructions and disposition. Decision To Admit - Pt Status Changed To: Hospital Disposition Of: Observation - . Bed Request Type: Regular Admitting Physician: Anahi Angeles Patient Diagnosis: Asthma exacerbation
[2017-09-11 08:36] LABS: URINE BILIRUBIN NEGATIVE (NEGATIVE); URINE CLARITY Clear (Clear); URINE COLOR Yellow (YELLOW); URINE GLUCOSE (UA) NORMAL (Normal); URINE LEUKOCYTE ESTERASE NEG Leu/uL (Negative); URINE PROTEIN NEGATIVE (NEGATIVE); URINE UROBILINOGEN NORMAL mg/dL (0.2-1.0)
[2017-09-11 08:37] LABS: BASO % 0.2 % (0.0-2.0); EOS % 0.4 % (0.0-4.0); HEMOGLOBIN 12.9 g/dL (12.0-18.0); LYMPH # 1.4 K/uL (1.0-4.3); LYMPH % 12.4 % (20.0-40.0); MEAN CELL VOLUME 88.1 fL (80.0-94.0); MEAN CORPUSCULAR HEMOGLOBIN 29.7 pg (27.0-31.0); MEAN CORPUSCULAR HGB CONC 33.7 g/dL (33.0-37.0); MEAN PLATELET VOLUME 8.6 fL (7.2-11.7); MONO # 0.9 K/uL (0.0-0.8); MONO % 7.8 % (0.0-10.0); NEUT # 9.2 K/uL (1.8-7.0); NEUT % 79.2 % (50.0-75.0); RBC 4.33 Mil/uL (4.40-5.90); RED CELL DISTRIBUTION WIDTH 15.2 % (11.5-14.5); WHITE BLOOD COUNT 11.6 K/uL (4.8-10.8)
[2017-09-11 08:43] LABS: URINE BLOOD TRACE (NEGATIVE)
[2017-09-11 08:45] LABS: BLOOD UREA NITROGEN 16 mg/dL (9-20); GFR AFRICAN-AMERICAN > 60; GFR NON-AFRICAN AMERICAN > 60
[2017-09-11 08:46] LABS: ALB/GLOB RATIO 1.4 (1.0-2.1); ALBUMIN 4.4 g/dL (3.5-5.0); ALT/SGPT 33 U/L (21-72); AST/SGOT 18 U/L (17-59); CALCIUM 9.5 mg/dl (8.6-10.4)
[2017-09-11 08:51] LABS: B-TYPE NATRIURETIC PEPTIDE 470 pg/mL (0-450)
--- NOTE | 2017-09-11 11:24 | RAD ---
Date of service: 09/11/2017 HISTORY: SOB COMPARISON: 04/24/2017 TECHNIQUE: Chest PA and lateral FINDINGS: LUNGS: No active pulmonary disease. PLEURA: No significant pleural effusion identified. No pneumothorax apparent. CARDIOVASCULAR: Normal. OSSEOUS STRUCTURES: No significant abnormalities. VISUALIZED UPPER ABDOMEN: Normal. OTHER FINDINGS: None. IMPRESSION: No active disease.
--- NOTE | 2017-09-11 12:00 | CP.PCM.HP ---
<Wes Rossi - Last Filed: 09/11/17 11:59> History of Present Illness - History of Present Illness History of Present Illness: Medicine H&P Note 47 year old male with hx of asthma, COPD, CHF, HTN, HLD, DM, hypothyroidism, diverticulosis. depression, schizophrenia/paranoia, kidney stones, liver lesions , glaucoma (b/l), blind in left eye presenting for PMD: Dr. Woods PMHx: asthma, COPD, CHF, HTN, HLD, DM, hypothyroidism, diverticulosis. depression, schizophrenia/paranoia, kidney stones, liver lesions, glaucoma (b/l) , blind in left eye SurgHx: eye surgeries (3 years prior), kidney stent (2007) FamHx: Father- CT, DM SocHx: denies tobacco, alcohol, and drug use; lives in [place] alone; unemployed, disability Allergies: dilaudid and morphine (palpitations and "head feels full of air") Medications: Carvedilol 25mg BID, Losartan 100mg daily, pravastatin 40mg daily, furosemide 40mg daily, levothyroxine 25mg daily, spironolactone 25mg daily, symbicort 250 daily, ventolin prn, metformin 500mg daily, vitamin D3 daily, fish oil daily Past Patient History - Infectious Disease Hx of Infectious Diseases: None - Past Medical History & Family History Past Medical History?: Yes - Past Social History Smoking Status: Never Smoked - CARDIAC Hx Congestive Heart Failure: Yes Hx Hypercholesterolemia: Yes Hx Hypertension: Yes - PULMONARY Hx Asthma: Yes Hx Bronchitis: Yes Hx Chronic Obstructive Pulmonary Disease (COPD): Yes - NEUROLOGICAL Hx Seizures: No - HEENT Hx HEENT Problems: Yes Hx Blind: Yes (left eye) Hx Glaucoma: Yes Other/Comment: lt. eye blind - RENAL Hx Kidney Stones: Yes (KIDNEY STENT 2007) - ENDOCRINE/METABOLIC Hx Hypothyroidism: Yes - HEMATOLOGICAL/ONCOLOGICAL Hx Human Immunodeficiency Virus (HIV): No - INTEGUMENTARY Hx Dermatological Problems: No - MUSCULOSKELETAL/RHEUMATOLOGICAL Hx Falls: No - GASTROINTESTINAL Hx Diverticulitis: Yes - PSYCHIATRIC Hx Depression: Yes Hx Paranoia: Yes Hx Substance Use: No - SURGICAL HISTORY Hx Surgeries: Yes Other/Comment: KIDNEY STENT, LEFT EYE SURGERY X3 - ANESTHESIA Hx Anesthesia: Yes Hx Anesthesia Reactions: No Hx Malignant Hyperthermia: No (UNKNOWN) Meds Allergies/Adverse Reactions: Allergies Allergy/AdvReac Type Severity Reaction Status Date / Time hydromorphone HCl Allergy SHORTNESS Verified 09/11/17 07:52 [From Dilaudid] OF BREATH morphine Allergy HEADACHE Verified 09/11/17 07:52 Results - Vital Signs Recent Vital Signs: Last Vital Signs Temp 97.7 F 09/11/17 07:53 Pulse 83 09/11/17 09:19 Resp 19 09/11/17 09:20 BP 117/80 09/11/17 09:19 Pulse Ox 96 09/11/17 11:51 - Labs Result Diagrams: 09/11/17 08:25 09/11/17 08:25 Labs: Laboratory Results - last 24 hr 09/11/17 09/11/17 09/11/17 08:25 08:25 08:25 WBC 11.6 H RBC 4.33 L Hgb 12.9 Hct 38.2 MCV 88.1 MCH 29.7 MCHC 33.7 RDW 15.2 H Plt Count 186 MPV 8.6 Neut % (Auto) 79.2 H Lymph % (Auto) 12.4 L [place] % (Auto) 7.8 Eos % (Auto) 0.4 Baso % (Auto) 0.2 Neut # (Auto) 9.2 H Lymph # (Auto) 1.4 [place] # (Auto) 0.9 H Eos # (Auto) 0.0 Baso # (Auto) 0.0 Sodium 143 Potassium 4.2 Chloride 105 Carbon Dioxide 28 Anion Gap 15 BUN 16 Creatinine 0.9 Est GFR ( Amer) > 60 Est GFR (Non-Af Amer) > 60 Random Glucose 152 H Calcium 9.5 Total Bilirubin 0.4 AST 18 ALT 33 Alkaline Phosphatase 56 Troponin I 0.0140 NT-Pro-B Natriuret Pep 470 H Total Protein 7.4 Albumin 4.4 Globulin 3.0 Albumin/Globulin Ratio 1.4 Urine Color Yellow Urine Clarity Clear Urine pH 5.0 Ur Specific [place] 1.013 Urine Protein Negative Urine Glucose (UA) Normal Urine Ketones Negative Urine Blood Trace Urine Nitrate Negative Urine Bilirubin Negative Urine Urobilinogen Normal Ur Leukocyte Esterase Neg Urine WBC (Auto) < 1 Urine RBC (Auto) 1 <Kristy Nj - Last Filed: 09/12/17 02:50> History of Present Illness - History of Present Illness History of Present Illness: Medicine H&P Note HPI: 47 year old male with hx of asthma, COPD, CHF, HTN, HLD, DM, lupus, hypothyroidism, diverticulosis, depression, schizophrenia/paranoia, kidney stones, liver lesions, glaucoma (b/l), blind in left eye presenting for shortness of breath worsening for one week. Associated symptoms include wheezing and cough with yellow sputum. Symptoms worsen with lying flat and improve with sitting up. Symptoms present at rest and with exertion. Patient states he has been using his inhaler and nebulizer treatments 2-3x per day with mild temporary improvement of symptoms, but ran out of tiotropium nebulizer solution 3 days ago. Pt denies chest pain, fever, chills, palpitations, nausea, vomiting, diarrhea, dysuria, frequency, sick contacts, change in weight, recent travel. Patient is not on home O2, has never been intubated, has no pets. Admits to carpeting in his home. PMD: Dr. Woods PMHx: asthma, COPD, CHF, HTN, HLD, DM, lupus, hypothyroidism, diverticulosis, depression, schizophrenia/paranoia, kidney stones, liver lesions, glaucoma (b/l) , blind in left eye SurgHx: eye surgeries (3 years prior), kidney stent (2007), colonoscopy FamHx: Father- CT, DM, at age 62 SocHx: denies tobacco, alcohol, and drug use; lives in [place] alone; unemployed, disability Allergies: dilaudid and morphine (palpitations) Medications: Carvedilol 25mg BID, Losartan 100mg daily, pravastatin 40mg daily, furosemide 40mg daily, levothyroxine 25mg daily, spironolactone 25mg daily, symbicort 250 BID, ventolin prn, metformin 500mg daily, vitamin D3 daily, fish oil daily, Timolol ophthalmic solution BID, latanoprost drops, artificial tears , mycophenolate 500mg BID. Proxy: Eri Ghotra, cousin. [phone] Code status: full code. Pt notes he does not want blood transfusion. Present on Admission - Present on Admission Any Indicators Present on Admission: No Physical Exam - Constitutional Appears: No Acute Distress - Head Exam Head Exam: ATRAUMATIC, NORMOCEPHALIC - Eye Exam Eye Exam: EOMI (R eye). absent: Normal appearance (Left eye) - ENT Exam ENT Exam: Mucous Membranes Moist - Respiratory Exam Respiratory Exam: Prolonged Expiratory Phase, Wheezes. absent: Rales, Rhonchi - Cardiovascular Exam Cardiovascular Exam: REGULAR RHYTHM, +S1, +S2 - GI/Abdominal Exam GI & Abdominal Exam: Normal Bowel Sounds, Soft. absent: Guarding, Tenderness - Neurological Exam Neurological exam: Alert, Oriented x3 - Psychiatric Exam Psychiatric exam: Anxious - Skin Additional comments: Face with hyperpigmented discoloration compared to rest of body. Results - Vital Signs Recent Vital Signs: Last Vital Signs Temp 98 F 09/11/17 23:37 Pulse 71 09/11/17 23:37 Resp 20 09/11/17 23:37 BP 122/76 09/11/17 23:37 Pulse Ox 95 09/11/17 23:37 - Labs Result Diagrams: 09/11/17 08:25 09/11/17 08:25 Labs: Laboratory Results - last 24 hr 09/11/17 09/11/17 09/11/17 08:25 08:25 08:25 WBC 11.6 H RBC 4.33 L Hgb 12.9 Hct 38.2 MCV 88.1 MCH 29.7 MCHC 33.7 RDW 15.2 H Plt Count 186 MPV 8.6 Neut % (Auto) 79.2 H Lymph % (Auto) 12.4 L [place] % (Auto) 7.8 Eos % (Auto) 0.4 Baso % (Auto) 0.2 Neut # (Auto) 9.2 H Lymph # (Auto) 1.4 [place] # (Auto) 0.9 H Eos # (Auto) 0.0 Baso # (Auto) 0.0 Sodium 143 Potassium 4.2 Chloride 105 Carbon Dioxide 28 Anion Gap 15 BUN 16 Creatinine 0.9 Est GFR ( Amer) > 60 Est GFR (Non-Af Amer) > 60 Random Glucose 152 H Calcium 9.5 Total Bilirubin 0.4 AST 18 ALT 33 Alkaline Phosphatase 56 Troponin I 0.0140 NT-Pro-B Natriuret Pep 470 H Total Protein 7.4 Albumin 4.4 Globulin 3.0 Albumin/Globulin Ratio 1.4 Urine Color Yellow Urine Clarity Clear Urine pH 5.0 Ur Specific [place] 1.013 Urine Protein Negative Urine Glucose (UA) Normal Urine Ketones Negative Urine Blood Trace Urine Nitrate Negative Urine Bilirubin Negative Urine Urobilinogen Normal Ur Leukocyte Esterase Neg Urine WBC (Auto) < 1 Urine RBC (Auto) 1 Assessment & Plan - Assessment and Plan (Free Text) Plan: 47 yo male admitted for asthma exacerbation. Acute exacerbation of Asthma and bronchitis CXR 09/11/17- no acute disease Duonebs Q4H -if patient becomes tachycardic consider switching to Atrovent Solumedrol 40mg IV daily ceftriaxone 1gm IV daily azithromycin 500mg IV daily CHF, not acute exacerbation Systolic dysfunction BNP 470 Pt reportedly had echo and stress test done recently with Dr. Vu, head of business development, which showed not changes. Continue home meds: lasix 40mg IV daily spironolactone 25mg daily carvedilol 25mg BID Losartan 100mg daily DM RISS accuchecks ACHS anticipate elevated glucose due to steroid Hgb A1c f/u HTN monitor continue home meds Losartan 100mg daily lasix 40mg IV daily carvedilol 25mg BID Hypothyroid continue home med synthroid 25mcg daily tsh f/u free T4 f/u Glaucoma continue home meds Timilol Q12H Brimonidine Q8H artificial tears BID latanoprost HS Lupus continue home med mycophenolate 500mg PO BID Prophylactic measures Heparin 5000 Q12H healthy heart diet
[2017-09-11] MEDS: Azithromycin 500 MG in Sodium Chloride 0.9% 250 ML IVPB SCH (15:02)
[2017-09-11] MEDS ORDERED: Albuterol-Ipratrop 3 mg / 0.5 (3 ml) UD INH SCH (16:00)
[2017-09-11 16:29] VITALS: RESP 20
--- NOTE | 2017-09-11 17:21 | CARD ---
APPROVED REPORT Date of service: 09/11/2017 EKG Measurement Heart [id number] <Conclusion> Normal sinus rhythm Left bundle branch block Abnormal ECG
[2017-09-11] MEDS: (Novolin R) Insulin Human Regular 100 units/ml vial SC SCH ×2 (18:04→21:25)
[2017-09-11] MEDS: cefTRIAXone IV 1 gm in Dextros 50 ML IVPB SCH (18:05)
[2017-09-11] MEDS: Aritificial Tears (15ml) OD SCH (18:44)
[2017-09-11] MEDS ORDERED: Home Med 1 UNIT (Brimonidine Tartrate/Timolol [Combigan 0.2%-0.5% Eye Drops] 1 DROP) RIGHTEYE SCH (19:30)
[2017-09-11] MEDS: EYE OD SCH (19:46)
[2017-09-11] MEDS: TIMOLOL MALEATE 0.5% OD SCH (19:46)
[2017-09-11] MEDS: Brimonidine 0.2% Opth Sol (5ml) OD SCH (20:45)
[2017-09-11] MEDS: Albuterol-Ipratrop 3 mg / 0.5 (3 ml) UD INH SCH (21:25)
[2017-09-11] MEDS: Latanoprost 2.5 ml Opht Soln OD SCH (21:52)
[2017-09-12] MEDS: Albuterol-Ipratrop 3 mg / 0.5 (3 ml) UD INH SCH ×6 (01:38→19:46)
[2017-09-12] MEDS: Brimonidine 0.2% Opth Sol (5ml) OD SCH ×3 (03:45→22:06)
[2017-09-12] MEDS: Levothyroxine 25 MCG TAB PO SCH (06:14)
[2017-09-12 07:30] LABS: BASO % 0.2 % (0.0-2.0); EOS % 0.2 % (0.0-4.0); HEMOGLOBIN 12.7 g/dL (12.0-18.0); LYMPH # 1.5 K/uL (1.0-4.3); LYMPH % 12.3 % (20.0-40.0); MEAN CELL VOLUME 88.1 fL (80.0-94.0); MEAN CORPUSCULAR HEMOGLOBIN 29.6 pg (27.0-31.0); MEAN CORPUSCULAR HGB CONC 33.6 g/dL (33.0-37.0); MEAN PLATELET VOLUME 8.7 fL (7.2-11.7); MONO # 1.4 K/uL (0.0-0.8); MONO % 11.6 % (0.0-10.0); NEUT # 9.2 K/uL (1.8-7.0); NEUT % 75.7 % (50.0-75.0); RBC 4.29 Mil/uL (4.40-5.90); RED CELL DISTRIBUTION WIDTH 15.6 % (11.5-14.5); WHITE BLOOD COUNT 12.2 K/uL (4.8-10.8)
[2017-09-12 07:37] LABS: ALB/GLOB RATIO 1.3 (1.0-2.1); ALBUMIN 4.1 g/dL (3.5-5.0); ALT/SGPT 21 U/L (21-72); AST/SGOT 16 U/L (17-59); BLOOD UREA NITROGEN 21 mg/dL (9-20); CALCIUM 9.6 mg/dl (8.6-10.4); GFR AFRICAN-AMERICAN > 60; GFR NON-AFRICAN AMERICAN > 60
[2017-09-12] MEDS: (Novolin R) Insulin Human Regular 100 units/ml vial SC SCH ×4 (08:04→21:33)
[2017-09-12] MEDS: Aritificial Tears (15ml) OD SCH ×2 (10:09→18:07)
[2017-09-12] MEDS: EYE OD SCH ×2 (10:11→22:06)
[2017-09-12] MEDS: TIMOLOL MALEATE 0.5% OD SCH ×2 (10:11→22:06)
[2017-09-12] MEDS: MethylPREDNISolone 40 mg Vial IVP SCH (10:26)
[2017-09-12] MEDS: Azithromycin 500 MG in Sodium Chloride 0.9% 250 ML IVPB SCH (14:03)
--- NOTE | 2017-09-12 16:58 | CP.PCM.PN ---
Subjective - Date & Time of Evaluation Date of Evaluation: 09/12/17 Time of Evaluation: 16:58 - Subjective Subjective: PGY-[address] Angeles service, Patient is seen and examined by bedside. Patient states feeling better compared to when he came to the hospital. Patient states he continues to have mild wheezing, shortness of breath, which he attributes it to his asthma. Patient says it gets worse when lying down. Patient denies fever, chills, sweating, headache, chest pain, SOB, nausea, vomiting, diarrhea or constipation. Objective - Vital Signs/Intake and Output Vital Signs (last 24 hours): Temp Pulse Resp BP Pulse Ox 97.6 F 76 20 115/74 97 09/12/17 16:06 09/12/17 16:06 09/12/17 16:06 09/12/17 16:06 09/12/17 16:06 - Medications Medications: Current Medications Albuterol/Ipratropium (Duoneb 3 Mg/0.5 Mg (3 Ml) Ud) 3 ml INH RQ4 MIRIAM Last Admin: 09/12/17 16:19 Dose: 3 ml Artificial Tears (Artificial Tears) 0 ml OD BID MIRIAM Last Admin: 09/12/17 10:09 Dose: 2 drop Brimonidine Tartrate (Alphagan 0.2% Opht) 0 ml OD Q8H MIRIAM Last Admin: 09/12/17 14:02 Dose: 1 drop Carvedilol (Coreg) 25 mg PO BID MIRIAM Last Admin: 09/12/17 10:10 Dose: 25 mg Furosemide (Lasix) 40 mg PO DAILY [facility] Last Admin: 09/12/17 10:16 Dose: 40 mg Heparin Sodium (Porcine) (Heparin) 5,000 units SC Q12 MIRIAM Last Admin: 09/12/17 10:26 Dose: 5,000 units Ceftriaxone Sodium (Rocephin Iv 1 Gm Duplex) 50 mls @ 100 mls/hr IVPB Q24H MIRIAM PRN Reason: Protocol Last Admin: 09/11/17 18:05 Dose: 100 mls/hr Azithromycin 500 mg/ Sodium (Chloride) 250 mls @ 250 mls/hr IVPB DAILY MIRIAM PRN Reason: Protocol Last Admin: 09/12/17 14:03 Dose: 250 mls/hr Insulin Human Regular (Novolin R) 0 unit SC ACHS MIRIAM PRN Reason: Protocol Last Admin: 09/12/17 11:20 Dose: Not Given Latanoprost (Xalatan Opht) 0 ml OD HS [facility] Last Admin: 09/11/17 21:52 Dose: 2.5 ml Levothyroxine Sodium (Synthroid) 25 mcg PO DAILY@0630 [facility] Last Admin: 09/12/17 06:14 Dose: 25 mcg Losartan Potassium (Cozaar) 100 mg PO DAILY [facility] Last Admin: 09/12/17 10:16 Dose: 100 mg Methylprednisolone (Solu-Medrol) 40 mg IVP DAILY [facility] Last Admin: 09/12/17 10:26 Dose: 40 mg Mycophenolate Mofetil (Cellcept) 500 mg PO BID [facility] Rosuvastatin Calcium (Crestor) 5 mg PO HS [facility] Last Admin: 09/11/17 21:52 Dose: 5 mg Spironolactone (Aldactone) 25 mg PO DAILY [facility] Last Admin: 09/12/17 10:19 Dose: 25 mg Timolol Maleate (Timoptic 0.5% Oph Soln) 1 drop OD Q12H [facility] Last Admin: 09/12/17 10:11 Dose: 1 drop - Labs Labs: 09/12/17 07:05 09/12/17 07:05 - Constitutional Appears: Well, Non-toxic, No Acute Distress - Head Exam Head Exam: ATRAUMATIC, NORMAL INSPECTION, NORMOCEPHALIC - Eye Exam Eye Exam: EOMI, Normal appearance - ENT Exam ENT Exam: Mucous Membranes Moist, Normal Exam - Neck Exam Neck Exam: Full ROM, Normal Inspection - Respiratory Exam Respiratory Exam: Wheezes, NORMAL BREATHING PATTERN. absent: Rales, Rhonchi, Stridor Additional comments: Right upper lobe expiratory wheezing - Cardiovascular Exam Cardiovascular Exam: REGULAR RHYTHM, +S1, +S2 - GI/Abdominal Exam GI & Abdominal Exam: Soft, Normal Bowel Sounds. absent: Distended, Firm, Guarding, Rigid, Tenderness - Extremities Exam Extremities Exam: Full ROM, Normal Inspection. absent: Calf Tenderness, Joint Swelling, Tenderness - Neurological Exam Neurological Exam: Alert, Awake, Oriented x3 - Psychiatric Exam Psychiatric exam: Normal Affect, Normal Mood - Skin Skin Exam: Dry, Intact, Normal Color Assessment and Plan - Assessment and Plan (Free Text) Plan: Acute exacerbation of Asthma and bronchitis symptoms improving with current treatment CXR 7/18/18- no acute disease Duonebs Q4H continue Solumedrol 40mg IV daily continue ceftriaxone 1gm IV daily continue azithromycin 500mg IV daily 09/12 WBC --> 12.2 from 11.6, Watch WBC levels while patient on steroids CHF, not acute exacerbation Systolic dysfunction BNP 470 Pt reportedly had echo and stress test done recently with Dr. Vu, pier hand helper, which showed not changes. Continue home meds: lasix 40mg IV daily spironolactone 25mg daily carvedilol 25mg BID Losartan 100mg daily DM RISS accuchecks ACHS anticipate elevated glucose due to steroid 09/12 Hgb A1c 6.1 HTN 09/12 BP: 120/75, stable. Continue monitoring continue home meds Losartan 100mg daily lasix 40mg IV daily carvedilol 25mg BID BUN/cr -- 21/0.9 Hypothyroid continue home med synthroid 25mcg daily 09/12 tsh 0.02 09/12 free T4 0.97 Glaucoma continue home meds Timilol Q12H Brimonidine Q8H artificial tears BID latanoprost HS Lupus continue home med mycophenolate 500mg PO BID Prophylaxis Heparin 5000 Q12H healthy heart diet Plan discussed with Dr. Bridgette Gonzalez PGY-1
[2017-09-12] MEDS: cefTRIAXone IV 1 gm in Dextros 50 ML IVPB SCH (19:20)
[2017-09-12] MEDS: Latanoprost 2.5 ml Opht Soln OD SCH (22:06)
[2017-09-12 23:39] VITALS: O2SAT 96
[2017-09-13] MEDS: Albuterol-Ipratrop 3 mg / 0.5 (3 ml) UD INH SCH ×5 (00:11→16:38)
[2017-09-13] MEDS: Brimonidine 0.2% Opth Sol (5ml) OD SCH ×2 (03:24→12:37)
[2017-09-13] MEDS: Levothyroxine 25 MCG TAB PO SCH (05:40)
[2017-09-13] MEDS: (Novolin R) Insulin Human Regular 100 units/ml vial SC SCH ×2 (08:01→12:36)
[2017-09-13] MEDS: EYE OD SCH (08:45)
[2017-09-13] MEDS: TIMOLOL MALEATE 0.5% OD SCH (08:45)
[2017-09-13] MEDS: MethylPREDNISolone 40 mg Vial IVP SCH (10:32)
[2017-09-13] MEDS: Aritificial Tears (15ml) OD SCH (10:33)
[2017-09-13] MEDS: Azithromycin 500 MG in Sodium Chloride 0.9% 250 ML IVPB SCH (10:33)
[2017-09-13 16:55] VITALS: BP 124/79; PULSE 83; TEMP 98.2
--- NOTE | 2017-09-13 20:32 | CP.PCM.DIS ---
Provider - Provider Date of Admission: 09/11/17 10:05 Attending physician: Anahi Angeles MD Time Spent in preparation of Discharge (in minutes): 60 Hospital Course - Lab Results Lab Results: Most Recent Lab Values WBC 12.2 K/uL (4.8-10.8) H 09/12/17 07:05 RBC 4.29 Mil/uL (4.40-5.90) L 09/12/17 07:05 Hgb 12.7 g/dL (12.0-18.0) 09/12/17 07:05 Hct 37.8 % (35.0-51.0) 09/12/17 07:05 MCV 88.1 fL (80.0-94.0) 09/12/17 07:05 MCH 29.6 pg (27.0-31.0) 09/12/17 07:05 MCHC 33.6 g/dL (33.0-37.0) 09/12/17 07:05 RDW 15.6 % (11.5-14.5) H 09/12/17 07:05 Plt Count 204 K/uL (130-400) 09/12/17 07:05 MPV 8.7 fL (7.2-11.7) 09/12/17 07:05 Neut % (Auto) 75.7 % (50.0-75.0) H 09/12/17 07:05 Lymph % (Auto) 12.3 % (20.0-40.0) L 09/12/17 07:05 [place] % (Auto) 11.6 % (0.0-10.0) H 09/12/17 07:05 Eos % (Auto) 0.2 % (0.0-4.0) 09/12/17 07:05 Baso % (Auto) 0.2 % (0.0-2.0) 09/12/17 07:05 Neut # (Auto) 9.2 K/uL (1.8-7.0) H 09/12/17 07:05 Lymph # (Auto) 1.5 K/uL (1.0-4.3) 09/12/17 07:05 [place] # (Auto) 1.4 K/uL (0.0-0.8) H 09/12/17 07:05 Eos # (Auto) 0.0 K/uL (0.0-0.7) 09/12/17 07:05 Baso # (Auto) 0.0 K/uL (0.0-0.2) 09/12/17 07:05 Sodium 144 mmol/L (132-148) 09/12/17 07:05 Potassium 4.3 mmol/L (3.6-5.2) 09/12/17 07:05 Chloride 105 mmol/L (98-107) 09/12/17 07:05 Carbon Dioxide 26 mmol/L (22-30) 09/12/17 07:05 Anion Gap 17 (10-20) 09/12/17 07:05 BUN 21 mg/dL (9-20) H 09/12/17 07:05 Creatinine 0.9 mg/dL (0.8-1.5) 09/12/17 07:05 Est GFR ( Amer) > 60 09/12/17 07:05 Est GFR (Non-Af Amer) > 60 09/12/17 07:05 POC Glucose (mg/dL) 208 mg/dL (65-110) H 09/13/17 16:22 Random Glucose 114 mg/dL (75-110) H 09/12/17 07:05 Hemoglobin A1c 6.1 % (4.2-6.5) 09/12/17 07:05 Calcium 9.6 mg/dl (8.6-10.4) 09/12/17 07:05 Total Bilirubin 0.4 mg/dL (0.2-1.3) 09/12/17 07:05 AST 16 U/L (17-59) L 09/12/17 07:05 ALT 21 U/L (21-72) D 09/12/17 07:05 Alkaline Phosphatase 51 U/L (38-126) 09/12/17 07:05 Troponin I 0.0140 ng/mL (0.00-0.120) 09/11/17 08:25 NT-Pro-B Natriuret Pep 470 pg/mL (0-450) H 09/11/17 08:25 Total Protein 7.2 g/dL (6.3-8.3) 09/12/17 07:05 Albumin 4.1 g/dL (3.5-5.0) 09/12/17 07:05 Globulin 3.1 gm/dL (2.2-3.9) 09/12/17 07:05 Albumin/Globulin Ratio 1.3 (1.0-2.1) 09/12/17 07:05 Free T4 0.97 ng/dL (0.78-2.19) 09/12/17 07:05 TSH 3rd Generation 0.02 mIU/L (0.46-4.68) L 09/12/17 07:05 Urine Color Yellow (YELLOW) 09/11/17 08:25 Urine Clarity Clear (Clear) 09/11/17 08:25 Urine pH 5.0 (5.0-8.0) 09/11/17 08:25 Ur Specific Thomas 1.013 (1.003-1.030) 09/11/17 08:25 Urine Protein Negative mg/dL (NEGATIVE) 09/11/17 08:25 Urine Glucose (UA) Normal mg/dL (Normal) 09/11/17 08:25 Urine Ketones Negative mg/dL (NEGATIVE) 09/11/17 08:25 Urine Blood Trace (NEGATIVE) 09/11/17 08:25 Urine Nitrate Negative (NEGATIVE) 09/11/17 08:25 Urine Bilirubin Negative (NEGATIVE) 09/11/17 08:25 Urine Urobilinogen Normal mg/dL (0.2-1.0) 09/11/17 08:25 Ur Leukocyte Esterase Neg Sher/uL (Negative) 09/11/17 08:25 Urine WBC (Auto) < 1 /hpf (0-5) 09/11/17 08:25 Urine RBC (Auto) 1 /hpf (0-3) 09/11/17 08:25 - Hospital Course Hospital Course: 47 year old male with hx of asthma, COPD, CHF, HTN, HLD, DM, lupus, hypothyroidism, diverticulosis, depression, schizophrenia/paranoia, kidney stones, liver lesions, glaucoma (b/l), blind in left eye presenting for shortness of breath worsening for one week. Associated symptoms include wheezing and cough with yellow sputum. Symptoms worsen with lying flat and improve with sitting up. Symptoms present at rest and with exertion. Patient states he has been using his inhaler and nebulizer treatments 2-3x per day with mild temporary improvement of symptoms, but ran out of tiotropium nebulizer solution 3 days ago. Pt denies chest pain, fever, chills, palpitations, nausea, vomiting, diarrhea, dysuria, frequency, sick contacts, change in weight, recent travel. Patient is not on home O2, has never been intubated, has no pets. Admits to carpeting in his home. CXR showed no active disease. EKG showed normal sinus rhythm with left bundle branch block. Patient was started and improved on Duoneb treatments. He was also placed on Solumedrol, ceftriaxone, and azithromycin proactively which were discontinued at discharge. His chronic conditions were well controlled this visit on this home regimen. Primary Diagnosis: Acute Exacerbation of Chronic Asthma Patient is clear for discharge per Dr. Angeles. Patient is to resume all home medications. Patient is additionally going to take to following medications as prescribed: Ventolin 2 puffs inhaled every 6 hours as needed Azithromycin 250mg by mouth twice a day Symbicort 2 puffs inhaled twice a day Flonase 1 spray in each nostril twice a day Mucinex 600 by mouth once a day Prednisone 40mg. Take two 20mg pills once a day for 4 days Patient should followup with his usual PMD, urban anthropologist, clerical clerk, and psychometrist. If symptoms come back or worsen, patient should immediately return to the ED. This was communicated with the patient who understood and agreed. This is a summary of the hospital course. Please refer to the EMR for more details. - Date & Time of H&P Date of H&P: 09/13/17 Time of H&P: 11:45 Discharge Exam - Head Exam Head Exam: ATRAUMATIC, NORMAL INSPECTION, NORMOCEPHALIC - Eye Exam Eye Exam: EOMI, Normal appearance, PERRL - ENT Exam ENT Exam: Mucous Membranes Moist, Normal Exam - Neck Exam Neck exam: Full Rom, Normal Inspection - Respiratory Exam Respiratory Exam: Clear to PA & Lateral, NORMAL BREATHING PATTERN. absent: Rales, Rhonchi Additional comments: minimal expiratory wheezes in upper lobes - Cardiovascular Exam Cardiovascular Exam: REGULAR RHYTHM, +S1, +S2. absent: Rubs, Systolic Murmur - GI/Abdominal Exam GI & Abdominal Exam: Normal Bowel Sounds, Soft. absent: Firm, Guarding, Tenderness Additional comments: obese - Extremities Exam Extremities exam: pedal edema, pedal pulses present Additional comments: no tenderness, ankle edema slight pedal swelling, drains when legs raised IV removed prior to discharge - Neurological Exam Neurological exam: Alert, Oriented x3, Reflexes Normal - Psychiatric Exam Psychiatric exam: Normal Affect, Normal Mood - Skin Skin Exam: Dry, Intact, Normal Color, Warm Discharge Plan - Discharge Medications Prescriptions: Albuterol HFA [Ventolin HFA 90 mcg/actuation (8 g)] 2 puff IH [id number] PRN #1 inhaler PRN Reason: SOB Azithromycin [Z-Avinash] 250 mg PO BID #10 tab Budesonide/Formoterol Fumarate [Symbicort 80-4.5 Mcg Inhaler] 2 puff IH BID #1 dsk Fluticasone Propionate [Flonase] 1 spr NS BID #1 bottle Guaifenesin [Mucinex ER] 600 mg PO DAILY #5 ter predniSONE [predniSONE Tab] 40 mg PO DAILY #8 tab - Follow Up Plan Condition: STABLE Disposition: HOME/ ROUTINE Instructions: Azithromycin (Systemic), Asthma, Adult (DC), Heart Failure, Adult (DC), Prednisolone (Systemic), Albuterol, Budesonide and Formoterol, Guaifenesin, Losartan, Fluticasone (Nasal) Additional Instructions: Patient is clear for discharge per Dr. Angeles. Patient is to resume all home medications. Patient is additionally going to take to following medications as prescribed: Ventolin 2 puffs inhaled every 6 hours as needed Azithromycin 250mg by mouth twice a day Symbicort 2 puffs inhaled twice a day Flonase 1 spray in each nostril twice a day Mucinex 600 by mouth once a day Prednisone 40mg. Take two 20mg pills once a day for 4 days Patient should followup with his usual PMD, urban anthropologist, clerical clerk, and psychometrist. If symptoms come back or worsen, patient should immediately return to the ED. This was communicated with the patient who understood and agreed. Clinical Quality Measures - CQM - Heart Failure Ejection Fraction: Less Than 40 % MICAH Inhibitor Prescribed: No Contraindication/Reason for not providing: on ARB Beta-Jason Prescribed: Carvedilol Angiotensin II Receptor Jason Prescribed: Yes AnticoagulationTherapy for Atrial Fibrillation/Atrialflutter: No Contraindication/Reason for not providing: does not have afib/flutter Aldosterone Antagonist Prescribed: Yes Hydralazine Nitrate Prescribed: No Contraindication/Reason for not providing: patient refused Implantable Cardioverter Defibrillator Therapy: No Contraindication/Reason for not providing: patient refused Cardiac Resynchronization Therapy Prescribed: No Contraindication/Reason for not providing: patient refused
== END 2017-09-13 18:35 | disposition home or self-care (01) ==
LOC: C.ER 07:50 → C.9E 10:05 → C.3T 15:28
PROVIDERS: ADMIT Internal Medicine; ATTEND Internal Medicine
DX: J45.909 Unspecified asthma, uncomplicated (principal); I50.9 Heart failure, unspecified; E03.9 Hypothyroidism, unspecified; F20.9 Schizophrenia, unspecified; E78.5 Hyperlipidemia, unspecified; H54.62 Unqualified visual loss, left eye, normal vision right eye; I11.0 Hypertensive heart disease with heart failure; I44.7 Left bundle-branch block, unspecified; H40.9 Unspecified glaucoma; K76.9 Liver disease, unspecified
CPT/HCPCS: 36415; 71046; 80053; 81001; 82948; 83036; 83880; 84439; 84443; 84484; 85025; 93005; 94640; 94760; 96365; 96366; 96367; 96372; 96375; 99285; G0378; J0456; J0696; J1644; J2920; J2930; J7050; J7517

== ENCOUNTER 2018-01-30 07:31 | Emergency (ER) | payer OTHER ==
[2018-01-30 07:32] VITALS: BMI 42.1
[2018-01-30 07:40] VITALS: TEMP 97.6
--- NOTE | 2018-01-30 07:54 | C.PDOC ---
History Of Present Illness 47 y/o male with history of Asthma, COPD, Kidney stones, Hypothyroidism and Diverticulosis presents to ED with c/o sharp low abdominal pain associated with non-bloody, brown, watery diarrhea for 4 days. 5-6 episodes daily. Patient has experienced this symptoms before, and been treated with Flagyl and Cipro improving symptoms in the past. Patient is tolerating po intake, notes no changes in appetite. No recent antibiotic use. Denies fever, chills, chest pain, sob, nausea, vomiting, blood in stool, headache, dizziness or any other complaints at this time. PMD: Dr. Woods Time Seen by Provider: 01/30/18 07:40 Chief Complaint (Nursing): Abdominal Pain History Per: Patient History/Exam Limitations: no limitations Onset/Duration Of Symptoms: Days Current Symptoms Are (Timing): Still Present Location Of Pain/Discomfort: LLQ Past Medical History Reviewed: Historical Data, Nursing Documentation, Vital Signs Vital Signs: Last Vital Signs Temp 97.6 F 01/30/18 07:36 Pulse 86 01/30/18 07:36 Resp 18 01/30/18 07:36 BP 142/88 01/30/18 07:36 Pulse Ox 99 01/30/18 07:36 - Medical History PMH: Asthma, Benign Prostatic Hyperplasia, Bronchitis, CHF, COPD, Depression, Diverticulitis, HTN, Hypercholesterolemia, Hyperlipidemia, Hypothyroidism, Kidney Stones (KIDNEY STENT 2007), Paranoia Surgical History: No Surg Hx - [facility] Procedures CLOSED ENDOSCOPIC BIOPSY OF LARGE INTESTINE (11/18/12) DX ULTRASOUND-HEAD/NECK (08/20/12) ENDOSC POLYPECTOMY OF LG INTEST (11/18/12) INJECT/INFUSE NEC (09/15/13) NEBULIZER THERAPY (10/23/13) PERCUTAN NEEDLE BX OF THYROID GLAND (08/20/12) PHYSICAL THERAPY NEC (11/24/14) Family History: States: Diabetes, Hypertension - Social History Hx Tobacco Use: No Hx Alcohol Use: No Hx Substance Use: No - Immunization History Hx Tetanus Toxoid Vaccination: No Hx Influenza Vaccination: No Hx Pneumococcal Vaccination: No Review Of Systems Except As Marked, All Systems Reviewed And Found Negative. Constitutional: Negative for: Fever, Chills Eyes: Negative for: Vision Change ENT: Negative for: Nose Congestion Cardiovascular: Negative for: Chest Pain, Palpitations Respiratory: Negative for: Cough, Shortness of Breath Gastrointestinal: Positive for: Abdominal Pain, Diarrhea. Negative for: Nausea, Vomiting, Melena, Hematochezia, Hematemesis, Rectal Pain Genitourinary: Negative for: Dysuria, Frequency, Penile Discharge, Scrotal Pain, Penile Pain Musculoskeletal: Negative for: Neck Pain, Back Pain Skin: Negative for: Rash Neurological: Negative for: Weakness, Numbness, Headache, Dizziness Physical Exam - Physical Exam Appears: Well, Non-toxic, No Acute Distress, Other (Obese; anxious) Skin: Normal Color, Warm, Dry, No Rash Head: Atraumatic, Normacephalic Eye(s): bilateral: Normal Inspection, PERRL, EOMI Nose: Normal Oral Mucosa: Moist Throat: Normal Neck: Normal, Normal ROM, Supple Chest: No Tenderness Cardiovascular: Rhythm Regular Respiratory: Normal Breath Sounds, No Rales, No Rhonchi, No Wheezing Gastrointestinal/Abdominal: Bowel Sounds, Soft, Tenderness (LLQ), No Organomega ly, No Mass, No Distention, No Guarding, No Rebound, Hernia (ventral) Back: Normal Inspection, No CVA Tenderness, No Paraspinal Tenderness Male Genital: Normal Inspection, No Testicular Tenderness Extremity: Normal ROM, No Tenderness, Capillary Refill (<2 seconds) Extremity: Bilateral: Atraumatic, No Pedal Edema, Normal Color And Temperature, Normal ROM Pulses: Left Radial: Normal, Right Radial: Normal Neurological/Psych: Oriented x3, Normal Speech, Normal Cognition, Normal Motor, Normal Sensation Gait: Steady ED Course And Treatment - Laboratory Results Result Diagrams: 01/30/18 08:13 01/30/18 08:13 Lab Interpretation: Normal O2 Sat by Pulse Oximetry: 99 (RA) Pulse Ox Interpretation: Normal - CT Scan/US No standard instances Other Rad Studies (CT/US): Read By Radiologist, Radiology Report Reviewed CT/US Interpretation: CT Abd/Pelvis with IV Contrast: FLuid-filled mildly prominent mid small bowel loops may represent nonspecific infectious/inflammatory enteritis. No bowel obstruction. Scattered left colonic diverticulosis without diverticulitis. Stable multiple hepatic hemangiomas. Stable 3.2x2.4cm ring-enhancing mass in the superior pole of the spleen which may represent a complicated cyst or hemangioma. Medical Decision Making Medical Decision Making: Plan: * CBC, CMP, Lipase * UA * CT scan abd/pelvis with IV contrast Labwork unremarkable Case discussed in depth with ED attending Dr. Jules. Recommends Cipro and Flagyl x 10d with outpatient followup. Prescriptions faxed to patient's pharmacy; patient given copies as well. Plan of care discussed with patient, and strict instructions given regarding prescriptions, importance of follow up, and signs to return to Emergency Department, to include worsening abdominal pain, fever, chills, or any other new/worsening symptoms. Patient verbalizes understanding of discussion. Patient A&Ox3, ambulating with steady gait, stable for discharge home. Disposition - Disposition Disposition: HOME/ ROUTINE Disposition Time: 11:30 Condition: IMPROVED Additional Instructions: Take Cipro every 12 hours for 10 days Take flagyl every 8 hours for 10 days Followup with primary doctor within 2 days Return to ER for any new/worsening symptoms Prescriptions: Ciprofloxacin [Cipro] 500 mg PO Q12H #20 tab metroNIDAZOLE [Flagyl] 500 mg PO Q8H #30 tab Instructions: Viral Gastroenteritis, Diverticulosis Forms: [facility] (Turkmen), Work Excuse - Clinical Impression Clinical Impression: Enteritis - PA / NUT SORTER / Resident Statement MD/DO has reviewed & agrees with the documentation as recorded. - Scribe Statement The provider has reviewed the documentation as recorded by the Nila Tirado All medical record entries made by the Nila were at my direction and personally dictated by me. I have reviewed the chart and agree that the record accurately reflects my personal performance of the history, physical exam, medical decision making, and the department course for this patient. I have also personally directed, reviewed, and agree with the discharge instructions and disposition.
[2018-01-30 08:20] LABS: BASO % 0.5 % (0.0-2.0); EOS # 0.1 K/uL (0.0-0.7); EOS % 0.7 % (0.0-4.0); HEMOGLOBIN 13.5 g/dL (12.0-18.0); LYMPH # 1.9 K/uL (1.0-4.3); MEAN CELL VOLUME 93.4 fL (80.0-94.0); MEAN CORPUSCULAR HEMOGLOBIN 31.3 pg (27.0-31.0); MEAN CORPUSCULAR HGB CONC 33.5 g/dL (33.0-37.0); MEAN PLATELET VOLUME 8.2 fL (7.2-11.7); MONO % 10.1 % (0.0-10.0); NEUT # 7.1 K/uL (1.8-7.0); NEUT % 69.7 % (50.0-75.0); RBC 4.31 Mil/uL (4.40-5.90); RED CELL DISTRIBUTION WIDTH 15.6 % (11.5-14.5); WHITE BLOOD COUNT 10.2 K/uL (4.8-10.8)
[2018-01-30 08:22] LABS: URINE BILIRUBIN NEGATIVE (NEGATIVE); URINE BLOOD NEGATIVE (NEGATIVE); URINE CLARITY Clear (Clear); URINE COLOR Yellow (YELLOW); URINE GLUCOSE (UA) NORMAL (Normal); URINE LEUKOCYTE ESTERASE NEG Leu/uL (Negative); URINE PROTEIN NEGATIVE (NEGATIVE); URINE UROBILINOGEN NORMAL mg/dL (0.2-1.0)
[2018-01-30 08:35] LABS: ALB/GLOB RATIO 1.3 (1.0-2.1); ALBUMIN 4.2 g/dL (3.5-5.0); ALT/SGPT 30 U/L (21-72); AST/SGOT 30 U/L (17-59); BLOOD UREA NITROGEN 17 mg/dL (9-20); GFR NON-AFRICAN AMERICAN > 60; LIPASE 110 U/L (23-300)
[2018-01-30] MEDS ORDERED: Iodixanol 320 MG/ML 100 ML BOTTLE IV ONE (10:17)
--- NOTE | 2018-01-30 11:10 | CT ---
Date of service: 01/30/2018 PROCEDURE: CT Abdomen and Pelvis with contrast HISTORY: abdominal pain, diarrhea COMPARISON: 04/02/2017 and 01/24/2017 TECHNIQUE: CT scan of the abdomen and pelvis was performed after administration of intravenous contrast. Oral contrast was not administered. Coronal and sagittal reformatted images were obtained. Contrast dose: Radiation dose: Total exam DLP = 1030.51 mGy-cm. This CT exam was performed using one or more of the following dose reduction techniques: Automated exposure control, adjustment of the mA and/or kV according to patient size, and/or use of iterative reconstruction technique. FINDINGS: LOWER THORAX: The visualized lungs are clear. LIVER: The liver is normal in size. There is diffuse fatty infiltration. There is redemonstration of multiple hemangiomas in the liver, the largest in the right hepatic lobe measures 6.0 by 7.0 cm. GALLBLADDER AND BILE DUCTS: Well distended. No calcified gallstones, wall thickening or pericholecystic fluid. PANCREAS: Normal in size with homogeneous enhancement. No gross lesion or ductal dilatation. SPLEEN: There is mild splenomegaly. There is redemonstration of a 3.2 x 2.4 cm hypodense rim enhancing lesion in the superior pole of the spleen. ADRENALS: No discrete nodule. KIDNEYS AND URETERS: Normal in size with homogeneous enhancement. No hydronephrosis. No solid mass. VASCULATURE: No aortic aneurysm. BOWEL: Evaluation of the bowel is limited in the absence of oral contrast. There are fluid-filled mildly prominent mid small bowel loops. The distal small bowel loops are normal in caliber. There is scattered left colonic diverticulosis without CT evidence for acute diverticulitis. No bowel wall thickening or obstruction. APPENDIX: Normal appendix. PERITONEUM: No free fluid. No free air. LYMPH NODES: No enlarged lymph nodes. BLADDER: Well distended and normal in appearance. REPRODUCTIVE: The prostate gland is normal in size. BONES: No acute fracture. Within normal limits for the patient's age. OTHER FINDINGS: There is a left paramedian infraumbilical fat containing ventral hernia. IMPRESSION: Fluid-filled mildly prominent mid small bowel loops may represent nonspecific infectious/inflammatory enteritis. No bowel obstruction. Scattered left colonic diverticulosis without CT evidence for acute diverticulitis. Stable multiple hepatic hemangiomas. Stable 3.2 x 2.4 cm rim enhancing mass in the superior pole of the spleen which may represent a complicated cyst or hemangioma. Correlation with left upper quadrant ultrasound is recommended for definitive characterization.
[2018-01-30 11:35] VITALS: BP 113/65; PULSE 76; RESP 16
[2018-01-31 00:16] VITALS: O2SAT 99
== END 2018-01-30 12:10 | disposition home or self-care (01) ==
LOC: C.ER 07:31
DX: K52.9 Noninfective gastroenteritis and colitis, unspecified (principal); E03.9 Hypothyroidism, unspecified; E78.00 Pure hypercholesterolemia, unspecified; I10 Essential (primary) hypertension; I50.9 Heart failure, unspecified; J44.9 Chronic obstructive pulmonary disease, unspecified
CPT/HCPCS: 74177; 80053; 81001; 83690; 85025; 99285; Q9967

== ENCOUNTER 2018-02-28 08:05 | Outpatient (CLI) | payer OTHER | END 2018-02-28 08:06 | disposition home or self-care (01) | LOC: C.LAB 08:05 | DX: E78.00 Pure hypercholesterolemia, unspecified (principal); E03.9 Hypothyroidism, unspecified; E11.65 Type 2 diabetes mellitus with hyperglycemia ==

== ENCOUNTER 2018-03-06 07:32 | Outpatient (CLI) | payer OTHER | END 2018-03-06 07:33 | disposition home or self-care (01) | LOC: C.LAB 07:32 | DX: R76.0 Raised antibody titer (principal); E78.5 Hyperlipidemia, unspecified; M32.9 Systemic lupus erythematosus, unspecified; E55.9 Vitamin D deficiency, unspecified; N39.0 Urinary tract infection, site not specified ==

== ENCOUNTER 2018-03-14 07:51 | Outpatient (CLI) | payer OTHER | END 2018-03-14 07:52 | disposition home or self-care (01) | LOC: C.VASC 07:51 | DX: M79.604 Pain in right leg (principal) ==

== ENCOUNTER 2018-05-08 08:46 | Outpatient (CLI) | payer OTHER | END 2018-05-08 08:47 | disposition home or self-care (01) | LOC: C.LAB 08:46 | DX: M35.9 Systemic involvement of connective tissue, unspecified (principal); E03.9 Hypothyroidism, unspecified; E11.9 Type 2 diabetes mellitus without complications; E78.5 Hyperlipidemia, unspecified ==

== ENCOUNTER 2018-05-15 08:42 | Outpatient (CLI) | payer OTHER | END 2018-05-15 08:43 | disposition home or self-care (01) | LOC: C.LAB 08:42 | DX: M32.19 Other organ or system involvement in systemic lupus erythematosus (principal); E03.9 Hypothyroidism, unspecified ==

== ENCOUNTER → 2018-06-03 | Outpatient (CLI) | payer OTHER | END | disposition home or self-care (01) | LOC: C.LAB 08:57 | DX: E11.69 Type 2 diabetes mellitus with other specified complication (principal); E78.2 Mixed hyperlipidemia; E03.9 Hypothyroidism, unspecified ==

== ENCOUNTER 2018-06-18 07:49 | Emergency (ER) | payer OTHER, SELFPAY ==
[2018-06-18 07:49] VITALS: BMI 42.1
[2018-06-18] MEDS ORDERED: Sodium Chloride 0.9% 1,000 ML IV ONE (08:26)
[2018-06-18 08:50] LABS: BASO % 0.4 % (0.0-2.0); EOS # 0.1 K/uL (0.0-0.7); EOS % 1.4 % (0.0-4.0); HEMOGLOBIN 14.4 g/dL (12.0-18.0); LYMPH # 1.6 K/uL (1.0-4.3); LYMPH % 16.9 % (20.0-40.0); MEAN CELL VOLUME 92.2 fL (80.0-94.0); MEAN CORPUSCULAR HEMOGLOBIN 31.4 pg (27.0-31.0); MEAN CORPUSCULAR HGB CONC 34.1 g/dL (33.0-37.0); MEAN PLATELET VOLUME 8.3 fL (7.2-11.7); MONO # 1.2 K/uL (0.0-0.8); MONO % 12.4 % (0.0-10.0); NEUT # 6.4 K/uL (1.8-7.0); NEUT % 68.9 % (50.0-75.0); RBC 4.57 Mil/uL (4.40-5.90); RED CELL DISTRIBUTION WIDTH 15.7 % (11.5-14.5); WHITE BLOOD COUNT 9.3 K/uL (4.8-10.8)
[2018-06-18] MEDS ORDERED: Sodium Chloride 0.9% 1,000 ML ONE (09:01)
[2018-06-18 09:05] LABS: ALB/GLOB RATIO 1.4 (1.0-2.1); ALBUMIN 4.6 g/dL (3.5-5.0); ALT/SGPT 21 U/L (21-72); AST/SGOT 46 U/L (17-59); BLOOD UREA NITROGEN 20 mg/dL (9-20); GFR NON-AFRICAN AMERICAN > 60; LIPASE 131 U/L (23-300)
--- NOTE | 2018-06-18 09:08 | C.PDOC ---
History Of Present Illness 48 y/o male presents to the ER complaining of lower abdominal pain which has been present for the past 2 weeks. Patient states that his "intestines are inflamed." Patient reports that he has associated diarrhea for the past 2 weeks. He notes that he is concerned because the color of the stool changes in color. He states that he has very watery diarrhea with yellow stool sometimes and dark brown at other times.Denies having fever,chills, nausea, vomiting, dysuria, hematuria, recent abx use, and recent travel. Time Seen by Provider: 06/18/18 08:03 Chief Complaint (Nursing): Abdominal Pain History Per: Patient History/Exam Limitations: no limitations Onset/Duration Of Symptoms: Days Current Symptoms Are (Timing): Still Present Severity: Moderate Past Medical History Reviewed: Historical Data, Nursing Documentation, Vital Signs Vital Signs: Last Vital Signs Temp 97.7 F 06/18/18 07:52 Pulse 78 06/18/18 07:52 Resp 20 06/18/18 07:52 BP 120/78 06/18/18 07:52 Pulse Ox 97 06/18/18 07:52 - Medical History PMH: Asthma, Benign Prostatic Hyperplasia, Bronchitis, CHF, COPD, Depression, Diverticulitis, HTN, Hypercholesterolemia, Hyperlipidemia, Hypothyroidism, Kidney Stones (KIDNEY STENT 2007), Paranoia Denies: HIV, Seizures Other Surgeries: Hx of surgeries - [facility] Procedures CLOSED ENDOSCOPIC BIOPSY OF LARGE INTESTINE (11/18/12) DX ULTRASOUND-HEAD/NECK (08/20/12) ENDOSC POLYPECTOMY OF LG INTEST (11/18/12) INJECT/INFUSE NEC (09/15/13) NEBULIZER THERAPY (10/23/13) PERCUTAN NEEDLE BX OF THYROID GLAND (08/20/12) PHYSICAL THERAPY NEC (11/24/14) Family History: States: Diabetes, Hypertension - Social History Hx Tobacco Use: No Hx Alcohol Use: No Hx Substance Use: No - Immunization History Hx Tetanus Toxoid Vaccination: No Hx Influenza Vaccination: No Hx Pneumococcal Vaccination: No Review Of Systems Constitutional: Negative for: Fever, Chills Cardiovascular: Negative for: Chest Pain Respiratory: Negative for: Shortness of Breath Gastrointestinal: Positive for: Abdominal Pain, Diarrhea. Negative for: Nausea, Vomiting Genitourinary: Negative for: Dysuria, Hematuria Physical Exam - Physical Exam Appears: Non-toxic, No Acute Distress Skin: Normal Color, Warm, Dry Head: Atraumatic, Normacephalic Eye(s): bilateral: Normal Inspection Nose: Normal Oral Mucosa: Moist Neck: Supple Chest: Symmetrical Cardiovascular: Rhythm Regular Respiratory: Normal Breath Sounds, No Rales, No Rhonchi, No Wheezing Gastrointestinal/Abdominal: Bowel Sounds (normal bowel sounds), Soft, Tenderness (minimal RLQ and LLQ tenderness), No Guarding, No Rebound, Hernia (reducible umbilical hernia) Neurological/Psych: Oriented x3, Normal Speech ED Course And Treatment - Laboratory Results Result Diagrams: 06/18/18 08:34 06/18/18 08:34 O2 Sat by Pulse Oximetry: 97 (RA) Pulse Ox Interpretation: Normal Medical Decision Making Medical Decision Making: Plan: --Labs --UA --IV Fluids --Toradol IV Labs done and were unremarkable. Results discussed with patient. Offered CT abd/pelvis but patient declines, he is concerned about the amount of radiation. Advised him to follow up with PMD so that he can get other testing done as needed (colonoscopy, etc). Patient asking what is wrong with his abdomen. E xplained that without any imaging or further testing, we cannot tell him a specific diagnosis. He is asking "look at my stomach and tell me what is wrong". States "I feel like my colon is inflamed". Again recommended outpatient followup for scope as needed. Patient asking for medication for his "colon inflammation". Advised ibuprofen at home. Patient then asking specifically for cipro and flagyl. Explained that there is no definite evidence for infection at this time, so we will not prescribe antibiotics today. Again advised outpatient followup. Patient stable for discharge. Disposition - Disposition Disposition: HOME/ ROUTINE Disposition Time: 10:20 Condition: STABLE Additional Instructions: JACE SHARP, thank you for letting us take care of you today. Your provider was Kari Pineda MD and you were treated for COLON PAIN. The emergency medical care you received today was directed at your acute symptoms. If you were prescribed any medication, please fill it and take as directed. It may take several days for your symptoms to resolve. Return to the Emergency Department if your symptoms worsen, do not improve, or if you have any other problems. Please contact your doctor or call one of the physicians/clinics you have been referred to that are listed on the Patient Visit Information form that is included in your discharge packet. Bring any paperwork you were given at discharge with you along with any medications you are taking to your follow up visit. Our treatment cannot replace ongoing medical care by a primary care pro vider outside of the emergency department. Thank you for allowing the [facility] team to be part of your care today. If you had an X-Ray or CT scan: A Radiologist will review the ED reading if any change in treatment is needed we will contact you. If you had a blood, urine, or wound culture: It will take several days for the results, if any change in treatment is needed we will contact you. If you had an STI test: It will take 48 hours for the results. Please call after 1 week if you have not heard back. Prescriptions: Ibuprofen [Motrin Tab] 600 mg PO TID PRN #14 tab PRN Reason: Pain, Moderate (4-7) Instructions: Acute Abdomen (Belly Pain), Adult (DC) Forms: [facility] (Danish) - Clinical Impression Clinical Impression: Abdominal pain - Scribe Statement The provider has reviewed the documentation as recorded by the Scribe Stefan Lowry Provider Attestation: All medical record entries made by the Scribe were at my direction and personally dictated by me. I have reviewed the chart and agree that the record accurately reflects my personal performance of the history, physical exam, medical decision making, and the department course for this patient. I have also personally directed, reviewed, and agree with the discharge instructions and disposition.
[2018-06-18 10:27] VITALS: BP 124/83; PULSE 80; RESP 18; TEMP 98.5
[2018-06-18 18:18] VITALS: O2SAT 97
== END 2018-06-18 10:28 | disposition home or self-care (01) ==
LOC: C.ER 07:49
DX: R10.30 Lower abdominal pain, unspecified (principal)
CPT/HCPCS: 80053; 83690; 83735; 84100; 85025; 96361; 96374; 99284; J1885; J7030

== ENCOUNTER 2018-07-10 08:09 | Outpatient (CLI) | payer SELFPAY | END 2018-07-10 08:10 | disposition home or self-care (01) | LOC: C.LAB 08:09 | DX: M32.19 Other organ or system involvement in systemic lupus erythematosus (principal) ==

== ENCOUNTER 2018-07-11 08:48 | Outpatient (CLI) | payer SELFPAY | END 2018-07-11 08:49 | disposition home or self-care (01) | LOC: C.USIC 08:48 ==